=== PATIENT | female | born 1945 | race Caucasian/White ===

== ENCOUNTER → 2017-10-06 08:35 | Outpatient (CLI) | payer MEDICARE, SELFPAY ==
--- NOTE | 2017-10-06 08:36 | ECHOD_ITS ---
Reason For Study: chest pain Procedure This was a 2D Doppler, Color Flow transthoracic echocardiogram. Exam performed in department. Left Ventricle Normal LV size. The estimated ejection fraction is 60 %. Left ventricular systolic function is normal. No regional wall motion abnormalities noted. Right Ventricle Normal RV size. Normal systolic function. Atria Normal left atrium. Normal right atrium. Mitral Valve Bileaflet diffuse mitral valve thickening. Mild (1+) eccentric mitral valve insufficiency. Tricuspid Valve Normal tricuspid valve. Mild (1+) tricuspid valve insufficiency. Aortic Valve Normal aortic valve. Mild (1+) aortic valve insufficiency. Pulmonic Valve Normal pulmonic valve. Great Vessels Normal aortic root. The pulmonary artery is normal size. Normal inferior vena cava. Pericardium/Pleural No pericardial effusion. MMode/2D Measurements & Calculations LVIDd: 4.1 cm IVSd: 1.0 cm LVOT diam: 2.0 cm LVIDs: 3.0 cm LVPWd: 1.0 cm LVOT area: 3.2 cm2 RVDd: 2.6 cm FS: 26.7 % Ao root diam: 3.0 cm LAV(MOD-bp): 41.9 ml LA A4 area: 14.5 cm2 LA dimension: 3.5 cm LAV(MOD-bp) Indexed: 25.2 ml/m2 LAV(MOD-sp2): 31.2 ml LAV(MOD-sp4): 42.9 ml RA A4 area: 10.7 cm2 Time Measurements MV dec time: 0.18 sec Doppler Measurements & Calculations MV E max vince: 76.3 cm/sec Lat Peak E' Vince: 5.0 cm/sec Med Peak E' Vince: 8.0 cm/sec MV A max vince: 105.4 cm/sec E/E' lat: 15.2 E/E' med: 9.5 MV E/A: 0.72 Ao V2 max: 130.6 cm/sec AI max vince: 422.5 cm/sec LV V1 max: 90.7 cm/sec Ao max P.8 mmHg AI max P.5 mmHg LV V1 max P.3 mmHg SOLOMON(V,D): 2.2 cm2 AI dec slope: 424.8 cm/sec2 AI P1/2t: 291.3 msec PA V2 max: 84.4 cm/sec TR max vince: 240.0 cm/sec TR max P.0 mmHg Interpretation Summary Normal LV size. The estimated ejection fraction is 60 %. Left ventricular systolic function is normal. Mild (1+) eccentric mitral valve insufficiency. Mild (1+) tricuspid valve insufficiency. Ordering Physician: Dariel Carter Referring Physician: Sammy Aleman Performed By: Sahra Neal, MARKY, RVT
== END ==
PROVIDERS: Family Provider Internal Medicine; PCP Internal Medicine; Visit Provider Internal Medicine Cardiovascular Disease
DX: R07.89 Other chest pain (principal)
CPT/HCPCS: 93306

== ENCOUNTER 2018-11-05 18:03 | Observation (INO) | payer MEDICARE, SELFPAY ==
[2018-11-05] VITALS (7 sets, daily range): BP systolic 126–152; BP diastolic 65–88; PULSE 100–109; RESP 14–25; TEMP 36.7; O2SAT 93–100; BMI 24.5
--- NOTE | 2018-11-05 18:54 | EKG12_ITS ---
Test Reason : REPEAT #2 Blood Pressure : / mmHG Vent. Rate : 125 BPM Atrial Rate : 125 BPM P-R Int : 118 ms QRS Dur : 084 ms QT Int : 338 ms P-R-T Axes : 033 -23 035 degrees QTc Int : 487 ms Sinus tachycardia Nonspecific ST abnormality Abnormal ECG Confirmed by ROBERT GANN, LEONIDES ([id number]), graphic editor SANTANA WISE ([id number]) on 11/07/2018 11:18:11 AM Referred By: RD Confirmed By:LEONIDES JONES MD
--- NOTE | 2018-11-05 18:55 | ED.VIS.GEN ---
History of Present Illness Chief Complaint: Chest Pain Informant: Patient, Significant Other Onset: Yesterday Context: Sudden Onset Timing: Intermittent - Initially intermittent now continuous since 1300 Quality: Initially epigastric and upper quadrant pain associated with N/V Location: Bilateral anterior chest pressure since 1300 Current Severity: Moderate Maximum Severity: Moderate Worsened by: Possibly food Relieved by: Nothing Associated Symptoms: Nausea, vomiting, chest pressure Narrative: Patient is an elderly woman who presents with nausea and vomiting 2 hours after eating pizza. No one else was ill. The pain was right upper quadrant epigastric without radiation. She does report intolerance to greasy and fried foods. She also had chest discomfort that was intermittent. She does not recall how long it lasted for. Since 1300 she has had bilateral anterior lower chest pressure without radiation or associated symptoms. She does have history of reflux. She states this is different than her reflux discomfort. She denies hematemesis, melena hematochezia. She denies history of PE or DVT. She denies leg pain, swelling discoloration. She has no risk factors for PE or DVT. She is a former smoker. Father had bypass surgery at the age of 75. Prior similar symptoms: No Recent Illness/Hospitalization: No - Past Medical History (1) Dyspnea on exertion Status: Acute (2) Hyperlipidemia Status: Chronic (3) Hypertension Status: Chronic Past Medical History - Allergies and Home Meds Allergies/Adverse Reactions: Allergies No Known Allergies Allergy (Verified 11/05/18 18:11) Primary Care Physician: Sammy Aleman MD [Primary Care Provider] - Prior records reviewed: Yes Surgical History: noncontributory Lives: Spouse/ Significant Other Smoking Status: Former smoker Drugs: None Review of Systems General: Denies: Chills, Fever, Malaise, Subjective, Sweats, Weight loss Eyes: Denies: Visual changes - bilaterally, Blurred Vision - bilaterally ENT: Denies: Bilateral ear pain, Rhinorrhea, Sore throat Cardiovascular: Reports: Chest pain, Palpitations, Heart racing Respiratory: Reports: Dyspnea - Onset of symptoms Gastrointestinal: Reports: Abdominal pain, Nausea, Vomiting. Denies: Diarrhea, Constipation, Melena, Hematochezia, -, - Genitourinary: Denies: Dysuria, Hematuria, Frequency Musculoskeletal: Denies: Myalgias, Arthralgias, Neck pain, Back pain, Extremity Pain Skin: Denies: Rash Neurological: Denies: Headache, Weakness, Parasthesia Hematologic: Denies: Easy bruising Allergy: Denies: Uticaria, Swelling of the mouth Physical Exam Vital Signs/Narrative: Vital Signs Temp Pulse Resp BP Pulse Ox 11/05/18 18:08 98.1 F 109 H 14 152/88 H 95 Inital Vital Signs reviewed: Yes General: Well nourished, Well developed, No Acute Distress Head: Normocephalic, Atraumatic Eyes: Perrl, EOMI. Negative for: Pale conjunctiva, Scleral icterus ENT: Moist mucous membranes, No rhinorrhea, TM's clear Neck: Supple, Nontender, No lymphadenopathy, No JVD, - Cardiovascular: Regular rate, Regular rhythm, No murmurs, Normal S1, Normal S2 Respiratory: No distress, CTA bilaterally, Chest nontender Abdomen: Soft, Nondistended, No masses, Tender, Hypoactive bowel sounds, Muhammad's sign. Negative for: Guarding, Rebound tenderness, Hepatomegaly, Splenomegaly, Mass, Pulsatile mass, Ventral hernia, Inguinal hernia Rectal: Deferred Back: Nontender, Normal Inspection. Negative for: CVA tenderness Extremities: Nontender, No edema, - - There is no asymmetry, swelling, discoloration, leg vein distention, palpable cords or tenderness along the distribution of the deep venous system. Skin: Normal color, No rash. Negative for: Diaphoresis, Jaundice Neurological: Alert, Oriented x3, Cranial nerves II-XII grossly intact, Normal Strength, Normal Sensation Psychological: Normal affect, Normal Mood Diagnostic/Tx/Re-eval Chest X-Ray - ED: 2 View, Read by ED Physician, Normal, Heart, Lungs, Mediastinum, Bony Structures, No Acute Disease Impressions Chest X-Ray 11/05/18 19:14 IMPRESSION: No acute pulmonary findings. Electronically Signed: Brain Quiles MD at 19:26 EDT Tel , Service support , 11/05/18 19:14 Chest PA and Lateral [RAD] Stat Laboratory Results 11/05/18 11/05/18 18:21 18:21 WBC 11.4 H RBC 4.92 Hgb 14.5 Hct 42.5 MCV 86.4 MCH 29.5 MCHC 34.1 RDW 12.6 RDW Differential 38.8 Plt Count 277 MPV 10.8 Immature Gran % (Auto) 0.500 Neut % (Auto) 66.6 Lymph % (Auto) 19.5 Lyman % (Auto) 13.0 H Eos % (Auto) 0.4 Baso % (Auto) 0.0 Absolute Neuts (auto) 7.6 Absolute Lymphs (auto) 2.22 Total Counted Not Reportable Sodium 133 L Potassium 3.3 L Chloride 100 Carbon Dioxide 24.0 Anion Gap 9 BUN 17 Creatinine 0.68 Estim Creat Clear Calc 38.44 Est GFR (MDRD) Af Amer 108 Est GFR (MDRD) Non-Af 90 BUN/Creatinine Ratio 25.0 H Glucose 101 Calcium 8.7 Total Bilirubin 0.90 Direct Bilirubin 0.19 AST 19 ALT 23 Alkaline Phosphatase 116 Troponin I < 0.015 Total Protein 7.1 Albumin 3.9 Globulin 3.2 Lipase 73 - Rhythm Strip Rhythm Strip: Sinus Rhythm Rate: 102 Ectopy: None - EKG Initial EKG Interpretation: Sinus Tachycardia - Ventricular rate is 105. There is no ossific lateral changes noted. Will need to compare to old. Will repeat EKG since there is artifact. IL interval is normal. Respirations normal. QT interval is normal. [place] is normal. Follow-up EKG Interpretation: Sinus Rhythm - Ventricular rate 99. No ossific lateral changes. Unchanged from first EKG. IL interval, cures duration QT interval and axis are normal. Prior: Unchanged - Medical Decision Making Differential diagnosis includes biliary colic, cholelithiasis, cholecystitis, noncardiac chest pain, cardiac ischemia, atypical presentation for pulmonary embolus. Repeat x-ray reveals no ossific lateral changes. Initial troponin was 6 hours of pressure is normal. Since she is still experiencing chest pressure with normal liver enzymes and lipase will treat with nitroglycerin and reassess. Repeat EKG reveals no ossific changes. 3-hour troponin is normal with delta of 0. Patient became tachycardic after first nitro and no further nitro was given. Third EKG revealed sinus tachycardia rate of [address]-T wave changes. Heart score is 4. Not place her at moderate risk. Will call hospitalist for serial enzymes and provocative testing in the morning. Patient was interviewed at 2340. The burning sensation of throat resolved with a GI cocktail. The pressure in her chest has not resolved. Patient states she is never had chest pressure. She has seen Dr. Carter for evaluation of chest pain in the past. ED Disposition - Plan for ED Patient: Disposition: Acute Care Hospital [facility] Diagnosis: Chest pressure, History of hypertension, Hypercholesterolemia, History of gastroesophageal reflux (GERD), Sinus tachycardia by electrocardiogram Referrals: Sammy Aleman MD [Primary Care Provider] -
--- NOTE | 2018-11-05 19:00 | ED.DCSUM_ITS ---
History of Present Illness Chief Complaint: Chest Pain Informant: Patient, Significant Other Onset: Yesterday Context: Sudden Onset Timing: Intermittent - Initially intermittent now continuous since 1300 Quality: Initially epigastric and upper quadrant pain associated with N/V Location: Bilateral anterior chest pressure since 1300 Current Severity: Moderate Maximum Severity: Moderate Worsened by: Possibly food Relieved by: Nothing Associated Symptoms: Nausea, vomiting, chest pressure Narrative: Patient is an elderly woman who presents with nausea and vomiting 2 hours after eating pizza. No one else was ill. The pain was right upper quadrant epigastric without radiation. She does report intolerance to greasy and fried foods. She also had chest discomfort that was intermittent. She does not recall how long it lasted for. Since 1300 she has had bilateral anterior lower chest pressure without radiation or associated symptoms. She does have history of reflux. She states this is different than her reflux discomfort. She denies hematemesis, melena hematochezia. She denies history of PE or DVT. She denies leg pain, swelling discoloration. She has no risk factors for PE or DVT. She is a former smoker. Father had bypass surgery at the age of 75. Prior similar symptoms: No Recent Illness/Hospitalization: No - Past Medical History (1) Dyspnea on exertion Status: Acute (2) Hyperlipidemia Status: Chronic (3) Hypertension Status: Chronic Past Medical History - Allergies and Home Meds Allergies/Adverse Reactions: Allergies No Known Allergies Allergy (Verified 11/05/18 18:11) Primary Care Physician: Sammy Aleman MD [Primary Care Provider] - Prior records reviewed: Yes Surgical History: noncontributory Lives: Spouse/ Significant Other Smoking Status: Former smoker Drugs: None Review of Systems General: Denies: Chills, Fever, Malaise, Subjective, Sweats, Weight loss Eyes: Denies: Visual changes - bilaterally, Blurred Vision - bilaterally ENT: Denies: Bilateral ear pain, Rhinorrhea, Sore throat Cardiovascular: Reports: Chest pain, Palpitations, Heart racing Respiratory: Reports: Dyspnea - Onset of symptoms Gastrointestinal: Reports: Abdominal pain, Nausea, Vomiting. Denies: Diarrhea, Constipation, Melena, Hematochezia, -, - Genitourinary: Denies: Dysuria, Hematuria, Frequency Musculoskeletal: Denies: Myalgias, Arthralgias, Neck pain, Back pain, Extremity Pain Skin: Denies: Rash Neurological: Denies: Headache, Weakness, Parasthesia Hematologic: Denies: Easy bruising Allergy: Denies: Uticaria, Swelling of the mouth Physical Exam Vital Signs/Narrative: Vital Signs Temp Pulse Resp BP Pulse Ox 11/05/18 18:08 98.1 F 109 H 14 152/88 H 95 Inital Vital Signs reviewed: Yes General: Well nourished, Well developed, No Acute Distress Head: Normocephalic, Atraumatic Eyes: Perrl, EOMI. Negative for: Pale conjunctiva, Scleral icterus ENT: Moist mucous membranes, No rhinorrhea, TM's clear Neck: Supple, Nontender, No lymphadenopathy, No JVD, - Cardiovascular: Regular rate, Regular rhythm, No murmurs, Normal S1, Normal S2 Respiratory: No distress, CTA bilaterally, Chest nontender Abdomen: Soft, Nondistended, No masses, Tender, Hypoactive bowel sounds, Muhammad's sign. Negative for: Guarding, Rebound tenderness, Hepatomegaly, Splenomegaly, Mass, Pulsatile mass, Ventral hernia, Inguinal hernia Rectal: Deferred Back: Nontender, Normal Inspection. Negative for: CVA tenderness Extremities: Nontender, No edema, - - There is no asymmetry, swelling, discoloration, leg vein distention, palpable cords or tenderness along the distribution of the deep venous system. Skin: Normal color, No rash. Negative for: Diaphoresis, Jaundice Neurological: Alert, Oriented x3, Cranial nerves II-XII grossly intact, Normal Strength, Normal Sensation Psychological: Normal affect, Normal Mood Diagnostic/Tx/Re-eval Chest X-Ray - ED: 2 View, Read by ED Physician, Normal, Heart, Lungs, Mediastinum, Bony Structures, No Acute Disease Impressions Chest X-Ray 11/05/18 19:14 IMPRESSION: No acute pulmonary findings. Electronically Signed: Brain Quiles MD at 19:26 EDT Tel , Service support , 11/05/18 19:14 Chest PA and Lateral [RAD] Stat Laboratory Results 11/05/18 11/05/18 18:21 18:21 WBC 11.4 H RBC 4.92 Hgb 14.5 Hct 42.5 MCV 86.4 MCH 29.5 MCHC 34.1 RDW 12.6 RDW Differential 38.8 Plt Count 277 MPV 10.8 Immature Gran % (Auto) 0.500 Neut % (Auto) 66.6 Lymph % (Auto) 19.5 Burt % (Auto) 13.0 H Eos % (Auto) 0.4 Baso % (Auto) 0.0 Absolute Neuts (auto) 7.6 Absolute Lymphs (auto) 2.22 Total Counted Not Reportable Sodium 133 L Potassium 3.3 L Chloride 100 Carbon Dioxide 24.0 Anion Gap 9 BUN 17 Creatinine 0.68 Estim Creat Clear Calc 38.44 Est GFR (MDRD) Af Amer 108 Est GFR (MDRD) Non-Af 90 BUN/Creatinine Ratio 25.0 H Glucose 101 Calcium 8.7 Total Bilirubin 0.90 Direct Bilirubin 0.19 AST 19 ALT 23 Alkaline Phosphatase 116 Troponin I < 0.015 Total Protein 7.1 Albumin 3.9 Globulin 3.2 Lipase 73 - Rhythm Strip Rhythm Strip: Sinus Rhythm Rate: 102 Ectopy: None - EKG Initial EKG Interpretation: Sinus Tachycardia - Ventricular rate is 105. There is no ossific lateral changes noted. Will need to compare to old. Will repeat EKG since there is artifact. [place] interval is normal. Respirations normal. QT interval is normal. [place] is normal. Follow-up EKG Interpretation: Sinus Rhythm - Ventricular rate 99. No ossific lateral changes. Unchanged from first EKG. [place] interval, cures duration QT interval and axis are normal. Prior: Unchanged - Medical Decision Making Differential diagnosis includes biliary colic, cholelithiasis, cholecystitis, noncardiac chest pain, cardiac ischemia, atypical presentation for pulmonary embolus. Repeat x-ray reveals no ossific lateral changes. Initial troponin was 6 hours of pressure is normal. Since she is still experiencing chest pressure with normal liver enzymes and lipase will treat with nitroglycerin and reassess. Repeat EKG reveals no ossific changes. 3-hour troponin is normal with delta of 0. Patient became tachycardic after first nitro and no further nitro was given. Third EKG revealed sinus tachycardia rate of [address]-T wave changes. Heart score is 4. Not place her at moderate risk. Will call hospitalist for serial enzymes and provocative testing in the morning. Patient was interviewed at 2340. The burning sensation of throat resolved with a GI cocktail. The pressure in her chest has not resolved. Patient states she is never had chest pressure. She has seen Dr. Carter for evaluation of chest pain in the past. ED Disposition - Plan for ED Patient: Disposition: Acute Care Hospital [facility] Diagnosis: Chest pressure, History of hypertension, Hypercholesterolemia, History of gastroesophageal reflux (GERD), Sinus tachycardia by electrocardiogram Referrals: Sammy Aleman MD [Primary Care Provider] -
[2018-11-05] MEDS: Ondansetron 4 MG/2 ML Vial IV ×2 (19:06→20:01)
[2018-11-05] MEDS: Morphine 2 MG/ML Syringe IV (19:08)
--- NOTE | 2018-11-05 19:09 | ED.RN ---
PT C/O HEAVINESS AND TINGLING IN LEGS
--- NOTE | 2018-11-05 19:12 | ED.RN ---
DR PALMER NOTIFIED OF ISSUES WITH LEGS
--- NOTE | 2018-11-05 19:14 | RAD_ITS ---
STUDY: X-RAY CHEST REASON FOR EXAM: Female, 73 years old. Chest pain TECHNIQUE: Frontal and lateral views of the chest. COMPARISON: None. FINDINGS: The lungs are clear and expanded. There is no demonstrated pleural abnormality. Normal size heart. Normal mediastinum and azeb. Normal visualized pulmonary arteries. There is atherosclerotic tortuosity of the aortic arch and descending thoracic aorta. Normal visualized thoracic spine. Normal visualized ribs, clavicles, and shoulders. There is no demonstrated abnormality of the visualized soft tissue structures of the upper abdomen. RAD/Chest PA and Lateral IMPRESSION: No acute pulmonary findings. Electronically Signed: Brain Quiles MD at 19:26 EDT Tel , Service support ,
[2018-11-05 19:26] LABS: Absolute Lymphocyte Count 2.22 X10^3/ul (0.83-4.51); Absolute Neutrophil Count 7.6 X10^3/uL (2.0-7.7); Eosinophil# 0.04 X10^3/uL; Eosinophils% 0.4 % (0-5); Hematocrit 42.5 % (37-47); Hemoglobin 14.5 g/dl (12.0-15.0); Lymphocyte # 2.22 X10^3/ul (4.0); Lymphocyte % 19.5 % (19-41); Mean Corp Hgb Conc 34.1 g/gl (32-36); Mean Corpuscular Hgb 29.5 pg (27.0-32.0); Mean Corpuscular Volume 86.4 fL (81-99); Mean Platelet Vol. 10.8 fl (6.2-12.0); Monocyte# 1.48 X10^3/uL; Neutrophil % 66.6 % (47-70); Platelet Count 277 K/mm3 (150-450); RBC Distribution Width CV 12.6 % (11.6-14.6); RBC Distribution Width SD 38.8 fl (35.1-43.9); Red Blood Count 4.92 M/mm3 (4.2-5.4); White Blood Count 11.4 K/mm3 (4.4-11.0)
[2018-11-05 19:27] LABS: POSITIVE COUNT NO; POSITIVE DIFFERENTIAL NO; POSITIVE MORPHOLOGY NO
[2018-11-05 19:32] LABS: AST(SGOT) 19 U/L (15-37); Alanine Aminotransfer ALT/SGPT 23 U/L (13-56); Albumin, Serum 3.9 g/dL (3.2-5.0); Alkaline Phosphatase 116 U/L (45-117); Anion Gap 9 (5-15); BUN 17 mg/dL (7-18); Bilirubin, Direct 0.19 mg/dL (0.00-0.30); Calcium,Total 8.7 mg/dL (8.5-10.1); Chloride 100 mmol/L (98-107); Creatinine, Serum 0.68 mg/dL (0.55-1.02); EST Glomerular Filtration Rate 90 mL/min (>60); Est Glom Filt Rate - Afr Amer 108 mL/min (>60); Estimated Creatinine Clearance 38.44 ml/min; Globulin 3.2 g/dL (2.2-4.2); Glucose 101 mg/dL (74-106); Lipase 73 U/L (73-393); Potassium 3.3 mmol/L (3.5-5.1); Protein, Total 7.1 g/dL (6.4-8.2); Sodium Level 133 mmol/L (136-145)
--- NOTE | 2018-11-05 20:29 | EKG12_ITS ---
Test Reason : CP Blood Pressure : / mmHG Vent. Rate : 105 BPM Atrial Rate : 105 BPM P-R Int : 118 ms QRS Dur : 086 ms QT Int : 364 ms P-R-T Axes : 041 -11 038 degrees QTc Int : 481 ms Sinus tachycardia Nonspecific ST abnormality Abnormal ECG Confirmed by ROBERT GANN, LEONIDES ([id number]), digital editor SANTANA WISE ([id number]) on 11/07/2018 11:18:22 AM Referred By: AMARILIS Confirmed By:LEONIDSE JONES MD
--- NOTE | 2018-11-05 21:03 | ED.RN ---
DESPITE PAIN MEDICATION, PT WITH CONTINUED PAIN IN RUQ AND INTO CHEST. DR. PALMER ORDERED NITRO. GIVEN PER ORDERS. WILL CONTINUE TO MONITOR.
--- NOTE | 2018-11-05 21:16 | ED.RN ---
AFTER PT WAS GIVEN NITRO, HR INCREASED 140. DR. PALMER INFORMED. PT REPORTS NO CHANGE IN PAIN. CALLED FOR REPEAT EKG. WILL CONTINUE TO MONITOR.
--- NOTE | 2018-11-05 22:31 | ED.RN ---
PT COMPLAINS OF CONTINUED REFLUX PAIN AND NAUSEA. DR. PALMER INFORMED. NEW ORDERS PLACED. WILL CONTINUE TO MONITOR.
[2018-11-05] MEDS: Mag Hydrox/Al Hydrox/Simeth 30 ML UDC PO (22:40)
[2018-11-05] MEDS: Aspirin 81 MG TAB.CHEW 324 MG PO (23:53)
[2018-11-06] VITALS (11 sets, daily range): BP systolic 118–140; BP diastolic 38–83; PULSE 78–103; RESP 16–17; TEMP 36.3–36.7; O2SAT 92–95; BMI 23.3; BMI 23.4
--- NOTE | 2018-11-06 00:09 | PCM.HP.STD ---
Problem List (1) Chest pressure Status: Acute (2) History of gastroesophageal reflux (GERD) Status: Acute (3) Chest pain Status: Acute Qualifiers: Chest pain type: other chest pain Qualified Code(s): R07.89 - Other chest pain; R07.8 - Other chest pain (4) Hypertension Status: Chronic Qualifiers: Hypertension type: essential hypertension Qualified Code(s): I10 - Essential (primary) hypertension (5) Hyperlipidemia Status: Chronic Qualifiers: Hyperlipidemia type: pure hypercholesterolemia Qualified Code(s): E78.00 - Pure hypercholesterolemia, unspecified; E78.0 - Pure hypercholesterolemia History of Present Illness Date of Admission: 11/06/18 Chief Complaint: Chest pressure The patient is a 73 year old F with PMH as below who presents to the hospital with intermittent episodes of chest pressure that are unrelated to exercise, over the last 2 days. She has noticed that it is been going on and off for the most part all day today. She has a history of GERD that is fairly severe and has had significant chest pain in the past that is been related to this, but this is a little bit of a different pressure. However in the ER her chest pain was not relieved with nitro but it did improve with a GI cocktail. She has a remote history of smoking, however she does have hyperlipidemia and hypertension and therefore her heart score in the ER was considered before. She also had an EKG that had some lateral ST depressions that are different than her EKG in 2017, though nonspecific especially given that she has had 2 troponins drawn in the ER both of which were normal. Past Medical History Past Medical History (Chronic Problems): Chronic Problems (Last Reviewed 01/24/18 @ 14:16 by Sharon Diaz) Hypertension (Chronic) Hyperlipidemia (Chronic) Medical History: Medical History (Last Reviewed 01/24/18 @ 14:16 by Sharon Diaz) Hypertension (Chronic) I10 Hyperlipidemia (Chronic) E78.5 Arthritis M19.90 Barretts esophagus K22.70 Chronic back pain M54.9, G89.[address] Marquis, receives GUS. Frequent headaches R51 GERD (gastroesophageal reflux disease) K21.9 IBS (irritable bowel syndrome) K58.9 Insomnia G47.00 Lichen planus L43.9 Obsessive compulsive disorder F42.9 Osteopenia M85.80 Raynaud phenomenon I73.00 Vitamin D deficiency E55.9 Allergies No Known Allergies Allergy (Verified 11/05/18 18:11) Home Medications: Ambulatory Orders Medication Instructions Recorded Bacillus coagulans 10 billion cell cell PO QDAY ea 09/13/17 capsule,delayed release amlodipine 2.5 mg tablet 5 mg PO QDAY 90 Days #90 tab 09/13/17 calcium carbonate 600 mg(1,500 1 tab PO BID 09/13/17 mg)-vitamin D3 800 unit chewable tablet fluoxetine 40 mg capsule 40 mg PO QDAY 30 Days #30 cap 09/13/17 glucosamine 500 cap PO QDAY ea 09/13/17 ke-hgeldcshc-gpgzxscl comp 400 mg-D3 667 unit-C-Mn cap multivitamin tablet 1 tab PO QAM 09/13/17 omeprazole 40 mg capsule,delayed 40 mg PO QDAY 90 Days #90 cap 09/13/17 release simvastatin 40 mg tablet 40 mg PO QPM 09/13/17 Surgical History: Surgical History (Last Reviewed 01/24/18 @ 14:16 by Sharon Diaz) History of arthroscopy of left knee Onset Date: ~04/2017 Z98.890 History of bladder surgery Z98.890 History of cataract surgery Z98.49 History of tonsillectomy Z98.890, Z90.89 History of total abdominal hysterectomy Z98.890, Z90.710 Status post epidural steroid injection Z92.241 lumbar/sacral area Surgical History: noncontributory Lives: Spouse/ Significant Other Smoking Status: Former smoker Tobacco Use: Cigarettes Alcohol: None Drugs: None - *Family History Maternal Family History: Family History (Last Reviewed 01/24/18 @ 14:16 by Sharon Diaz) Father Heart disease CAD (coronary artery disease) Review of Systems Constitutional: Denies: Chills, Fever, Weight Change HEENT: Denies: Head Aches, Sinus Congestion, Sinus Drainage Cardiovascular: Reports: Chest Pressure. Denies: Chest Pain, Palpitations Respiratory: Denies: Cough, Shortness of breath at rest, Sputum production Gastrointestinal: Reports: Nausea, Vomiting. Denies: Abdominal Pain Genitourinary: Denies: Dysuria Musculoskeletal: Denies: Joint Pain, Joint Tenderness Skin: Denies: Rash, Wounds Neurological: Denies: Numbness, Tingling, Focal weakness Psychiatric: Denies: Anxiety, Depression Hematologic/ Lymphatic: Denies: Easy Bruising, Easy Bleeding VTE Information - Inpt Only VTE Present on Admission: No Patient Problems: Active and Suspected Problems (Last Reviewed 01/24/18 @ 14:16 by Sharon Diaz) Chest pressure (Acute) History of hypertension (Acute) Hypercholesterolemia (Acute) History of gastroesophageal reflux (GERD) (Acute) Sinus tachycardia by electrocardiogram (Acute) - Physical Exam General: Alert, Oriented x3, Cooperative, No apparent distress HEENT: Atraumatic, PERRLA, EOMI, Normocephalic Oral: Moist Mucosa Neck: Supple, No JVD Lungs: Clear to auscultation, Normal air movement, No rhonchi, No wheeze, No rales Cardiovascular: Regular Rhythm, Normal S1, Normal S2, No murmurs, Tachycardic Abdomen: Soft, Non Tender, Non-Distended, No Hepato-splenomegaly Extremities: No edema, Capillary Refill Less than 3 Seconds Skin: No rashes, No breakdown Neurological: Neuro grossly intact, Sensory exam intact to light touch and pain Psych/Mental Status: Normal Affect, Appropriate Vital Signs Temp Pulse Resp BP Pulse Ox 98.1 F 100 18 142/65 H 97 11/05/18 18:08 11/05/18 23:49 11/05/18 23:49 11/05/18 23:49 11/05/18 23:49 Oxygen Flow Rate (L/min) 2 Oxygen Delivery Method Nasal Cannula Weight: 134 lb Body Mass Index (BMI) 24.5 Laboratory Tests Past 24 Hrs 11/05/18 11/05/18 11/05/18 18:21 18:21 22:30 WBC 11.4 H RBC 4.92 Hgb 14.5 Hct 42.5 MCV 86.4 MCH 29.5 MCHC 34.1 RDW 12.6 RDW Differential 38.8 Plt Count 277 MPV 10.8 Immature Gran % (Auto) 0.500 Neut % (Auto) 66.6 Lymph % (Auto) 19.5 [place] % (Auto) 13.0 H Eos % (Auto) 0.4 Baso % (Auto) 0.0 Absolute Neuts (auto) 7.6 Absolute Lymphs (auto) 2.22 Total Counted Not Reportable Sodium 133 L Potassium 3.3 L Chloride 100 Carbon Dioxide 24.0 Anion Gap 9 BUN 17 Creatinine 0.68 Estim Creat Clear Calc 38.44 Est GFR (MDRD) Af Amer 108 Est GFR (MDRD) Non-Af 90 BUN/Creatinine Ratio 25.0 H Glucose 101 Calcium 8.7 Total Bilirubin 0.90 Direct Bilirubin 0.19 AST 19 ALT 23 Alkaline Phosphatase 116 Troponin I < 0.015 < 0.015 Total Protein 7.1 Albumin 3.9 Globulin 3.2 Lipase 73 Assessment/Plan All Active Problems (Last Reviewed 01/24/18 @ 14:16 by Sharon Diaz) Chest pressure (Acute) History of hypertension (Acute) Hypercholesterolemia (Acute) History of gastroesophageal reflux (GERD) (Acute) Sinus tachycardia by electrocardiogram (Acute) Dyspnea on exertion (Acute) Chest pain (Acute) 1. Chest pressure/HTN/HLD -2 troponins in the ER were negative, will repeat a third at 0230 this morning. -Plan for an exercise stress test in the morning -EKG is nonspecific with single box ST depressions in the lateral leads -Continue with her Norvasc, simvastatin -We will obtain a lipid level in the morning 2. Nausea/vomiting/GERD -GI cocktail helped in the ER -Can repeat if we need to on the inpatient side -She states this started after she ate pizza -Continue with her home PPI 3. Depression -Stable -Continue with fluoxetine DVT: Lovenox Code Visit OBSV E&M: 29382 Initial observation care L2
[2018-11-06 02:55] LABS: Absolute Lymphocyte Count 2.35 X10^3/ul (0.83-4.51); Absolute Neutrophil Count 8.5 X10^3/uL (2.0-7.7); Basophil# 0.01 X10^3/uL; Basophil% 0.1 % (0-1); Eosinophil# 0.07 X10^3/uL; Eosinophils% 0.6 % (0-5); Hematocrit 41.1 % (37-47); Lymphocyte # 2.35 X10^3/ul (4.0); Lymphocyte % 19.2 % (19-41); Mean Corp Hgb Conc 34.1 g/gl (32-36); Mean Corpuscular Hgb 29.8 pg (27.0-32.0); Mean Corpuscular Volume 87.4 fL (81-99); Monocyte# 1.32 X10^3/uL; Monocyte% 10.8 % (0-10); Neutrophil # 8.46 X10^3/uL (2.7-7.7); Platelet Count 251 K/mm3 (150-450); RBC Distribution Width CV 12.5 % (11.6-14.6); RBC Distribution Width SD 40.2 fl (35.1-43.9); White Blood Count 12.3 K/mm3 (4.4-11.0)
[2018-11-06 03:01] LABS: POSITIVE COUNT NO; POSITIVE DIFFERENTIAL NO; POSITIVE MORPHOLOGY NO
[2018-11-06 03:12] LABS: Anion Gap 7 (5-15); BUN 22 mg/dL (7-18); BUN/Creat Ratio 33.7 RATIO (10-20); Calcium,Total 8.4 mg/dL (8.5-10.1); Chloride 101 mmol/L (98-107); Cholesterol 176 mg/dL (200); Creatinine, Serum 0.65 mg/dL (0.55-1.02); EST Glomerular Filtration Rate 94 mL/min (>60); Est Glom Filt Rate - Afr Amer 114 mL/min (>60); Estimated Creatinine Clearance 38.44 ml/min; Glucose 94 mg/dL (74-106); High Density Lipoprotein 72 mg/dL; Potassium 3.8 mmol/L (3.5-5.1); Sodium Level 133 mmol/L (136-145); Triglycerides 154 mg/dL; Very Low Density Lipoprotein 31 mg/dL (5-40)
--- NOTE | 2018-11-06 05:00 | EKG12_ITS ---
Test Reason : REPEAT Blood Pressure : / mmHG Vent. Rate : 099 BPM Atrial Rate : 099 BPM P-R Int : 122 ms QRS Dur : 086 ms QT Int : 374 ms P-R-T Axes : 029 -15 027 degrees QTc Int : 479 ms Normal sinus rhythm Nonspecific ST abnormality Abnormal ECG Confirmed by ROBERT GANN, LEONIDES ([id number]), slot editor SANTANA WISE ([id number]) on 11/07/2018 11:18:40 AM Referred By: Confirmed By:LEONIDES JONES MD
--- NOTE | 2018-11-06 05:35 | EKG12_ITS ---
Test Reason : AM EKG Blood Pressure : / mmHG Vent. Rate : 095 BPM Atrial Rate : 095 BPM P-R Int : 122 ms QRS Dur : 082 ms QT Int : 376 ms P-R-T Axes : 046 -15 021 degrees QTc Int : 472 ms Normal sinus rhythm Normal ECG Confirmed by ROBERT GANN, LEONIDES ([id number]), editor index ROMERO PANDYA ([id number]) on 11/08/2018 9:54:08 AM Referred By: KERON Confirmed By:LEONIDES JONES MD
[2018-11-06] MEDS: Mag Hydrox/Al Hydrox/Simeth 30 ML UDC PO (05:39)
[2018-11-06 05:41] LABS: Absolute Lymphocyte Count 1.79 X10^3/ul (0.83-4.51); Absolute Neutrophil Count 6.3 X10^3/uL (2.0-7.7); Basophil# 0.01 X10^3/uL; Basophil% 0.1 % (0-1); Eosinophil# 0.07 X10^3/uL; Eosinophils% 0.7 % (0-5); Hematocrit 41.1 % (37-47); Hemoglobin 13.9 g/dl (12.0-15.0); Lymphocyte # 1.79 X10^3/ul (4.0); Mean Corp Hgb Conc 33.8 g/gl (32-36); Mean Corpuscular Hgb 29.3 pg (27.0-32.0); Mean Corpuscular Volume 86.5 fL (81-99); Mean Platelet Vol. 10.8 fl (6.2-12.0); Monocyte# 1.28 X10^3/uL; Monocyte% 13.6 % (0-10); Neutrophil # 6.25 X10^3/uL (2.7-7.7); Neutrophil % 66.2 % (47-70); Platelet Count 239 K/mm3 (150-450); RBC Distribution Width CV 12.5 % (11.6-14.6); RBC Distribution Width SD 38.8 fl (35.1-43.9); Red Blood Count 4.75 M/mm3 (4.2-5.4); White Blood Count 9.4 K/mm3 (4.4-11.0)
[2018-11-06 05:46] LABS: POSITIVE COUNT NO; POSITIVE DIFFERENTIAL NO; POSITIVE MORPHOLOGY NO
[2018-11-06 05:56] LABS: International Normalized Ratio 1.1; Partial Thromboplast Time 23.5 Seconds (24.1-36.2); Prothrombin Time (Protime)PT. 13.5 SECONDS (11.7-14.9)
[2018-11-06 06:04] LABS: Anion Gap 9 (5-15); BUN 21 mg/dL (7-18); BUN/Creat Ratio 30.9 RATIO (10-20); Calcium,Total 8.7 mg/dL (8.5-10.1); Chloride 100 mmol/L (98-107); Creatinine, Serum 0.68 mg/dL (0.55-1.02); EST Glomerular Filtration Rate 90 mL/min (>60); Est Glom Filt Rate - Afr Amer 109 mL/min (>60); Estimated Creatinine Clearance 38.44 ml/min; Glucose 96 mg/dL (74-106); Potassium 3.7 mmol/L (3.5-5.1); Sodium Level 136 mmol/L (136-145)
--- NOTE | 2018-11-06 09:42 | STRESSREP ---
Stress Test Report Date: Procedure: Exercise tolerance test/imaging study Indications: Chest pain Consent: Per the patient Procedure: The patient exercised on a Juan Luis protocol for 4 minutes completing Stage I and 1 minute of Stage II achieving a peak heart rate of 193 bpm (133 % predicted maximal heart rate) with a peak blood pressure 175/80 mmHg and a peak MET capacity of 5 METs. The baseline ECG demonstrated sinus tachycardia. The peak exercise ECG demonstrated approximately 0.5 to 1.0 mm of horizontal/upsloping ST segment depression in leads II, III, aVF, and V5 through V6 with subsequent resolution towards baseline in recovery. There were no cardiac dysrhythmias pretest, during exercise, or recovery. The functional capacity was considered average. There was no complaint of chest discomfort during exercise or recovery. The examination was discontinued secondary to dyspnea and leg discomfort. Impression: 1. Technically adequate (percent predicted maximal heart rate greater than 85%) exercise tolerance test 2. Peak exercise ECG with approximately 0.5 to 1.0 mm of horizontal/upsloping ST segment depression in leads II, III, aVF, and V5 through V6 with subsequent resolution towards baseline in recovery 3. There were no cardiac dysrhythmias pretest, during exercise, or recovery 4. Nuclear images pending Myocardial perfusion imaging study: Technique: The patient was injected with 11.1 mCi of technetium 99m Cardiolite and subsequently rest SPECT Cardiolite nuclear imaging was obtained in the horizontal long, vertical long, and short axis views. The patient exercised on a Juan Luis protocol for 4 minutes completing Stage I and 1 minute of Stage II achieving a peak heart rate of 193 bpm (133 % predicted maximal heart rate) with a peak blood pressure 175/80 mmHg and a peak MET capacity of 5 METs. The patient was injected with 32.6 mCi of technetium 99m Cardiolite and subsequently stress SPECT Cardiolite nuclear imaging was obtained in the horizontal long, vertical long, and short axis views. A gated Cardiolite study at peak stress was obtained. Interpretation: Rest and stress SPECT Cardiolite nuclear imaging status post realignment, normalization, and attenuation correction, demonstrates the appearance of relative uniform tracer uptake and myocardial perfusion appearing within normal limits. There is end systolic thickening and brightening. The gated Cardiolite study demonstrates myocardial thickening and inward wall motion. The reported LVEF is 72 %. Impression: 1. Rest and stress SPECT Cardiolite nuclear imaging demonstrate relative uniform tracer uptake and myocardial perfusion appearing within normal limits. 2. The gated Cardiolite study reports an LVEF of 72 %. This note was generated with [employer] software. It may contain incorrect words, spelling, and punctuation that were not noted in checking the note before signing.
[2018-11-06] MEDS: Ondansetron 4 MG/2 ML Vial IV (09:59)
[2018-11-06] MEDS: 0.9% NaCl Peripheral Flush Adult/Peds IV ×2 (10:00→12:17)
[2018-11-06] MEDS: amLODIPine 5 MG Tablet PO (10:57)
[2018-11-06] MEDS: Acetaminophen 325 MG Tablet 650 MG PO (10:57)
[2018-11-06] MEDS: Enoxaparin 40 MG/0.4 ML Syringe SC (10:57)
--- NOTE | 2018-11-06 11:30 | PCM.DC ---
- Discharge Diagnoses Current Active Problems: Current Active and Chronic Problems (Last Reviewed 01/24/18 @ 14:16 by Sharon Diaz) Chest pressure (Acute) History of hypertension (Acute) Hypercholesterolemia (Acute) History of gastroesophageal reflux (GERD) (Acute) Sinus tachycardia by electrocardiogram (Acute) Reason(s) for Visit for Discharge Instructions: Chest pain You will use the following diet at home:: Cardiac Your food should be the consistency of: Regular Your liquids should be the consistency of: Regular/Thin Discharge Activity: Return to Normal Activity Weight Bearing Status: Weight bearing as tolerated Additional Instructions: Follow-up with Dr. Guthrie within 1-2 weeks. Follow-up with your primary doctor within 2 weeks. Monitor your diet. Continue to stay active, do not go to sleep immediately after eating. Your omeprazole has been increased to twice a day. Allergies/Adverse Reactions: Allergies No Known Allergies Allergy (Verified 11/05/18 18:11) Medications to take at Discharge Bacillus coagulans 10 billion cell capsule,delayed release cell PO QDAY ea 09/13/17 amlodipine 2.5 mg tablet 5 mg PO QDAY 90 Days #90 tab 09/13/17 calcium carbonate 600 mg(1,500 mg)-vitamin D3 800 unit chewable tablet 1 tab PO BID 09/13/17 fluoxetine 40 mg capsule 40 mg PO QDAY 30 Days #30 cap 09/13/17 glucosamine 500 ah-sgndbcjdt-xzjqwdoz comp 400 mg-D3 667 unit-C-Mn cap cap PO QDAY ea 09/13/17 multivitamin tablet 1 tab PO QAM 09/13/17 simvastatin 40 mg tablet 40 mg PO QPM 09/13/17 Mag Hydrox/Al Hydrox/Simeth [Mylanta II] 30 ml PO Q4H PRN PRN #2 bottle 11/06/18 Omeprazole 40 mg PO BID #60 capsule. 11/06/18 The following prescriptions were given: Mag Hydrox/Al Hydrox/Simeth [Mylanta II] 30 ml PO Q4H PRN PRN #2 bottle PRN Reason: Heartburn Omeprazole 40 mg PO BID #60 capsule. Primary Care Physician: Sammy Aleman MD [Primary Care Provider] - Please follow up with your Primary Care Physician in: within 1-2 weeks Test Results: Test results from this visit will be discussed in further detail at your follow-up appointment, if applicable. Proposed Discharge Date: 11/06/18
--- NOTE | 2018-11-06 11:33 | DCINST_ITS ---
- Discharge Diagnoses Current Active Problems: Current Active and Chronic Problems (Last Reviewed 01/24/18 @ 14:16 by Sharon Diaz) Chest pressure (Acute) History of hypertension (Acute) Hypercholesterolemia (Acute) History of gastroesophageal reflux (GERD) (Acute) Sinus tachycardia by electrocardiogram (Acute) Reason(s) for Visit for Discharge Instructions: Chest pain You will use the following diet at home:: Cardiac Your food should be the consistency of: Regular Your liquids should be the consistency of: Regular/Thin Discharge Activity: Return to Normal Activity Weight Bearing Status: Weight bearing as tolerated Additional Instructions: Follow-up with Dr. Guthrie within 1-2 weeks. Follow-up with your primary doctor within 2 weeks. Monitor your diet. Continue to stay active, do not go to sleep immediately after eating. Your omeprazole has been increased to twice a day. Allergies/Adverse Reactions: Allergies No Known Allergies Allergy (Verified 11/05/18 18:11) Medications to take at Discharge Bacillus coagulans 10 billion cell capsule,delayed release cell PO QDAY ea 09/13/17 amlodipine 2.5 mg tablet 5 mg PO QDAY 90 Days #90 tab 09/13/17 calcium carbonate 600 mg(1,500 mg)-vitamin D3 800 unit chewable tablet 1 tab PO BID 09/13/17 fluoxetine 40 mg capsule 40 mg PO QDAY 30 Days #30 cap 09/13/17 glucosamine 500 pi-ahyvtuvai-wallugtt comp 400 mg-D3 667 unit-C-Mn cap cap PO QDAY ea 09/13/17 multivitamin tablet 1 tab PO QAM 09/13/17 simvastatin 40 mg tablet 40 mg PO QPM 09/13/17 Mag Hydrox/Al Hydrox/Simeth [Mylanta II] 30 ml PO Q4H PRN PRN #2 bottle 11/06/18 Omeprazole 40 mg PO BID #60 capsule. 11/06/18 The following prescriptions were given: Mag Hydrox/Al Hydrox/Simeth [Mylanta II] 30 ml PO Q4H PRN PRN #2 bottle PRN Reason: Heartburn Omeprazole 40 mg PO BID #60 capsule. Primary Care Physician: Sammy Aleman MD [Primary Care Provider] - Please follow up with your Primary Care Physician in: within 1-2 weeks Test Results: Test results from this visit will be discussed in further detail at your follow- up appointment, if applicable. Proposed Discharge Date: 11/06/18
--- NOTE | 2018-11-06 11:33 | PCM.DC.SUM ---
Discharge Date and Diagnosis Date of Admission: 11/06/18 Date of Discharge: 11/06/18 - Primary Discharge Diagnosis Active and Suspected Problems (Last Reviewed 01/24/18 @ 14:16 by Sharon Diaz) Chest pain, atypical likely secondary to GERD - Secondary Discharge Diagnosis Chronic Problems (Last Reviewed 01/24/18 @ 14:16 by Sharon Diaz) Hypertension (Chronic) Hyperlipidemia (Chronic) Chappell's esophagus GERD Hospital Course and Treatment Imaging Results: 11/06/18 05:55 Nuclear Stress Test - Treadmil [NM] AM (NON MEDS) Clinical Impression(s) from Imaging Studies Chest X-Ray 11/05/18 19:14 IMPRESSION: No acute pulmonary findings. Electronically Signed: Brain Quiles MD at 19:26 EDT Tel , Service support , None Operations: None Procedures: Stress test Summary of Care Provided: The patient is a 73 year old F with PMHx of Chappell's esophagus/GERD, hyperlipidemia, who comes in with complaints of chest discomfort, she is described as mid-sternal with no associated diaphoresis or dizziness or palpitation. Her EKG had shown some lateral ST segment depression that was different, from her previous EKG. Troponins were negative. Patient underwent a stress test that was negative. Vitals continue to be stable. No acute events overnight. She was recommended to increase her PPIs to twice daily. She was recommended to follow-up with a hydroelectric production technician, Dr. Guthrie in the outpatient. Subjective: Review of discharge, patient planes of slight mid sternal chest discomfort. History of Chappell's esophagus. On PPI 40 mg daily. Discussed the plan of care extensively with the patient and her daughter. All questions were answered. Recommended increasing PPI to twice a day. She will follow-up with Dr. Pak to the [facility]. - Physical Exam General: Alert, Oriented x3, Cooperative, No apparent distress HEENT: Atraumatic, PERRLA, EOMI, Normocephalic Oral: Moist Mucosa Neck: Supple, No JVD, Negative Carotid Bruits Lungs: Clear to auscultation, Normal air movement Cardiovascular: Regular rate, Regular Rhythm, Normal S1, Normal S2, No murmurs Abdomen: Bowel Sounds Present, Soft, Non Tender, Non-Distended, No Hepato-splenomegaly Extremities: No edema Skin: No rashes, No breakdown Musculoskeletal: No Tenderness to Palpation of Joints or Extremities Neurological: Cranial nerves II-XII grossly intact, Neuro grossly intact Psych/Mental Status: Normal Affect, Appropriate Vital Signs Temp Pulse Resp BP Pulse Ox 97.3 F L 98 16 140/38 H 92 11/06/18 09:00 11/06/18 09:12 11/06/18 09:00 11/06/18 09:00 11/06/18 09:00 Oxygen Flow Rate (L/min) 2 Oxygen Delivery Method Room Air Weight: 58 kg Body Mass Index (BMI) 23.3 Laboratory Tests Past 24 Hrs 11/05/18 11/05/18 11/05/18 18:21 18:21 22:30 WBC 11.4 H RBC 4.92 Hgb 14.5 Hct 42.5 MCV 86.4 MCH 29.5 MCHC 34.1 RDW 12.6 RDW Differential 38.8 Plt Count 277 MPV 10.8 Immature Gran % (Auto) 0.500 Neut % (Auto) 66.6 Lymph % (Auto) 19.5 [place] % (Auto) 13.0 H Eos % (Auto) 0.4 Baso % (Auto) 0.0 Absolute Neuts (auto) 7.6 Absolute Lymphs (auto) 2.22 Total Counted Not Reportable PT INR APTT Sodium 133 L Potassium 3.3 L Chloride 100 Carbon Dioxide 24.0 Anion Gap 9 BUN 17 Creatinine 0.68 Estim Creat Clear Calc 38.44 Est GFR (MDRD) Af Amer 108 Est GFR (MDRD) Non-Af 90 BUN/Creatinine Ratio 25.0 H Glucose 101 Calcium 8.7 Total Bilirubin 0.90 Direct Bilirubin 0.19 AST 19 ALT 23 Alkaline Phosphatase 116 Troponin I < 0.015 < 0.015 Total Protein 7.1 Albumin 3.9 Globulin 3.2 Triglycerides Cholesterol LDL Cholesterol VLDL Cholesterol HDL Cholesterol Lipase 73 11/06/18 11/06/18 11/06/18 02:33 02:33 02:33 WBC 12.3 H RBC 4.70 Hgb 14.0 Hct 41.1 MCV 87.4 MCH 29.8 MCHC 34.1 RDW 12.5 RDW Differential 40.2 Plt Count 251 MPV 10.0 Immature Gran % (Auto) 0.300 Neut % (Auto) 69.0 Lymph % (Auto) 19.2 [place] % (Auto) 10.8 H Eos % (Auto) 0.6 Baso % (Auto) 0.1 Absolute Neuts (auto) 8.5 H Absolute Lymphs (auto) 2.35 Total Counted Not Reportable PT INR APTT Sodium 133 L Potassium 3.8 Chloride 101 Carbon Dioxide 25.0 Anion Gap 7 BUN 22 H Creatinine 0.65 Estim Creat Clear Calc 38.44 Est GFR (MDRD) Af Amer 114 Est GFR (MDRD) Non-Af 94 BUN/Creatinine Ratio 33.7 H Glucose 94 Calcium 8.4 L Total Bilirubin Direct Bilirubin AST ALT Alkaline Phosphatase Troponin I < 0.015 Total Protein Albumin Globulin Triglycerides 154 Cholesterol 176 LDL Cholesterol 73 VLDL Cholesterol 31 HDL Cholesterol 72 Lipase 11/06/18 11/06/18 11/06/18 05:15 05:15 05:15 WBC 9.4 RBC 4.75 Hgb 13.9 Hct 41.1 MCV 86.5 MCH 29.3 MCHC 33.8 RDW 12.5 RDW Differential 38.8 Plt Count 239 MPV 10.8 Immature Gran % (Auto) 0.400 Neut % (Auto) 66.2 Lymph % (Auto) 19.0 [place] % (Auto) 13.6 H Eos % (Auto) 0.7 Baso % (Auto) 0.1 Absolute Neuts (auto) 6.3 Absolute Lymphs (auto) 1.79 Total Counted Not Reportable PT 13.5 INR 1.1 APTT 23.5 L Sodium 136 Potassium 3.7 Chloride 100 Carbon Dioxide 27.0 Anion Gap 9 BUN 21 H Creatinine 0.68 Estim Creat Clear Calc 38.44 Est GFR (MDRD) Af Amer 109 Est GFR (MDRD) Non-Af 90 BUN/Creatinine Ratio 30.9 H Glucose 96 Calcium 8.7 Total Bilirubin Direct Bilirubin AST ALT Alkaline Phosphatase Troponin I Total Protein Albumin Globulin Triglycerides Cholesterol LDL Cholesterol VLDL Cholesterol HDL Cholesterol Lipase Discharge Diet: Low fat/ Low Cholesterol, 2000 mg Sodium Diet Discharge Activity: Return to Normal Activity Weight Bearing Status: Weight bearing as tolerated Home Medications: Medications to take at Discharge Bacillus coagulans 10 billion cell capsule,delayed release cell PO QDAY ea 09/13/17 amlodipine 2.5 mg tablet 5 mg PO QDAY 90 Days #90 tab 09/13/17 calcium carbonate 600 mg(1,500 mg)-vitamin D3 800 unit chewable tablet 1 tab PO BID 09/13/17 fluoxetine 40 mg capsule 40 mg PO QDAY 30 Days #30 cap 09/13/17 glucosamine 500 wv-rjpoddjnl-xdzaqbks comp 400 mg-D3 667 unit-C-Mn cap cap PO QDAY ea 09/13/17 multivitamin tablet 1 tab PO QAM 09/13/17 simvastatin 40 mg tablet 40 mg PO QPM 09/13/17 Mag Hydrox/Al Hydrox/Simeth [Mylanta II] 30 ml PO Q4H PRN PRN #2 bottle 11/06/18 Omeprazole 40 mg PO BID #60 capsule. 11/06/18 Following Prescrptions Were Given to Patient: Mag Hydrox/Al Hydrox/Simeth [Mylanta II] 30 ml PO Q4H PRN PRN #2 bottle PRN Reason: Heartburn Omeprazole 40 mg PO BID #60 capsule. Primary Care Physician: Sammy Aleman MD [Primary Care Provider] - Please follow up with your Primary Care Physician in: within 1-2 weeks Medical Necessity - Tobacco Use Smoking Status: Former smoker Tobacco Use: Cigarettes Meaningful Use Info Meaningful Use Diagnoses (Choose all that apply): None applicable Code Visit OBSV E&M: 15694 Observation care discharge
[2018-11-06] MEDS: proCHLORPERazine 10 MG/2 ML Vial IV (12:13)
--- NOTE | 2018-11-06 13:54 | CASEMGMT ---
Patient has a Healthcare Living Will and she is aware it is not on file. She does not have a Healthcare POA. Larissa NEIVLLE MSW
[2018-11-06] MEDS: Acetaminophen 500 MG Tablet 1000 MG PO (16:16)
== END 2018-11-06 11:25 | disposition home or self-care (01) ==
LOC: ED 11-06 00:15 → PCU 11-06 00:16
PROVIDERS: Admitting Provider Family Medicine; Emergency Provider Emergency Medicine; Family Provider Internal Medicine; PCP Internal Medicine; Visit Provider Internal Medicine
DX: R07.89 Other chest pain (principal); R11.2 Nausea with vomiting, unspecified; E78.5 Hyperlipidemia, unspecified; R06.09 Other forms of dyspnea; I10 Essential (primary) hypertension; R00.0 Tachycardia, unspecified; K21.9 Gastro-esophageal reflux disease without esophagitis; M19.90 Unspecified osteoarthritis, unspecified site; I73.00 Raynaud's syndrome without gangrene; Z87.891 Personal history of nicotine dependence; Z82.49 Family history of ischemic heart disease and other diseases of the circulatory system; Z79.899 Other long term (current) drug therapy; F32.9 Major depressive disorder, single episode, unspecified; K22.70 Barrett's esophagus without dysplasia
CPT/HCPCS: 36415; 71046; 78452; 80048; 80061; 80076; 83690; 84484; 85025; 85610; 85730; 93005; 93017; 96365; 96372; 96375; 96376; 99218; 99285; A9500; J7040; A4216; G0378; J2405

== ENCOUNTER 2019-06-14 19:31 | Emergency (ER) | payer MEDICARE, SELFPAY ==
[2019-06-14 19:31] VITALS: BMI 24.5
[2019-06-14 19:32] VITALS: BP 129/72; PULSE 120; RESP 18; O2SAT 94
[2019-06-14 19:35] VITALS: BP 129/72; PULSE 120; RESP 18; TEMP 36.1; O2SAT 97; BMI 26.2
[2019-06-14 19:50] VITALS: BP 135/82; PULSE 120; RESP 18; O2SAT 96
--- NOTE | 2019-06-14 19:54 | CT_ITS ---
STUDY: CT FACIAL BONES WITHOUT CONTRAST REASON FOR EXAM: Female, 73 years old. Fall. RADIATION DOSAGE (If Supplied By Facility): CTDIvol = ( 29.38 ) mGy, DLP = ( 606.22 ) mGycm TECHNIQUE: The patient was scanned in a multi detector CT scanner. Sagittal and coronal images were reconstructed. Individualized dose optimization techniques were used for this CT. COMPARISON: None. FINDINGS: Normal soft tissue structures. Normal orbital garcia and orbital contents. There is a comminuted nasal bone fracture with mild displacement. Normal facial bones. There is no demonstrated fracture. Normal visualized paranasal sinuses. CT/Sinus/Facial Bone IMPRESSION: 1. Comminuted nasal bone fracture with otherwise no evidence of facial fracture. Limited view of the teeth secondary to metallic artifact. Electronically Signed: Shahab Smart DO at 20:28 EST , Service support ,
--- NOTE | 2019-06-14 19:54 | CT_ITS ---
STUDY: CT BRAIN WITHOUT CONTRAST REASON FOR EXAM: Female, 73 years old. Fall, face and teeth pain. RADIATION DOSAGE (If Supplied By Facility): CTDIvol = ( 44.99 ) mGy, DLP = ( 745.49 ) mGycm TECHNIQUE: Transaxial CT imaging of the brain was performed without administration of intravenous contrast material. Individualized dose optimization techniques were used for this CT. COMPARISON: No relevant priors. FINDINGS: Normal soft tissue structures. Normal calvarium. There is mild cerebral atrophy with widening of the extra-axial spaces and ventricular dilatation. There are areas of decreased attenuation within the white matter tracts of the supratentorial brain, consistent with microvascular disease changes. Normal basal ganglia and thalami. Normal brainstem. Normal cerebellum. There is no intracranial hemorrhage. There are no findings of an acute ischemic infarction. Normal visualized paranasal sinuses. Comminuted nasal bone fracture is noted on exam. CT/Brain/Head without Contrast IMPRESSION: 1. Senescent changes with no evidence of acute intracranial bleed, mass or ischemia. Comminuted nasal bone fracture is present. Electronically Signed: Shahab Smart DO at 20:27 EST , Service support ,
--- NOTE | 2019-06-14 20:41 | ED.VISSUMM ---
- ER Visit Summary Date of Service: 06/14/19 Chief Complaint: Fall, nose pain History of Present Illness: The patient is a 73 F who presents after a fall. She states that she tripped and fell. She landed forward hitting her face. There was no LOC. She complains of some nose pain in the area. She is on no blood thinning medications. She has no neck pain. No back pain. She denies any chest or abdominal pain. She feels a little bit jittery but does have a history of anxiety. Physical Examination: Vital signs reviewed. HEENT exam shows abrasions to the nose. She has no active bleeding but there is some dried blood in the right nares and from the mouth. No mouth lacerations are seen. Heart is echocardiac and regular rhythm without murmurs. Lungs are clear to auscultation. Abdomen is soft and nontender. Extremities reveal no edema. Skin exam normal. Neurologic exam normal. Test Results: CT scan of the head and face reveals a comminuted nasal bone fracture. No other findings are seen Emergency Department Course and Treatment: Patient declined any pain medications. CAT scans reveal a nasal bone fracture. I do not feel she requires any further interventions for this. She will take Tylenol and use ice at home. She will follow-up with her PCP Treatment Plan: [] Disposition: Discharge Impression: Comminuted nasal bone fracture This note was generated with [employer] dictation software. It may contain incorrect words, spelling, and punctuation that were not noted in review of the chart prior to signing ED Disposition - Plan for ED Patient: Referrals: Sammy Aleman MD [Primary Care Provider] -
--- NOTE | 2019-06-14 20:43 | ED.DEP ---
ED Disposition - Plan for ED Patient: Disposition: Home or Assisted Living Instructions: FALL, Mechanical Referrals: Sammy Aleman MD [Primary Care Provider] -
[2019-06-14] MEDS: Oxymetazoline 0.05% 1 SPRAY SPRAY.BTL 2 SPRAY NASAL (21:06)
[2019-06-14 21:07] VITALS: BP 121/74; PULSE 102; RESP 18; O2SAT 98
[2019-06-14 21:28] VITALS: BP 121/74; PULSE 94; RESP 18; O2SAT 100
--- NOTE | 2019-06-14 21:29 | ED.RN ---
THIS NURSE REVIEWED D/C INSTRUCTIONS WITH PT. PT VERBALIZED UNDERSTANDING OF INSTRUCTIONS. PT DENIES FURTHER NEEDS OR QUESTIONS AT THIS TIME
== END 2019-06-14 21:29 | disposition home or self-care (01) ==
PROVIDERS: Emergency Provider Emergency Medicine; Family Provider Internal Medicine; PCP Internal Medicine
DX: S02.2XXA Fracture of nasal bones, initial encounter for closed fracture (principal); W01.0XXA Fall on same level from slipping, tripping and stumbling without subsequent striking against object, initial encounter; F41.9 Anxiety disorder, unspecified
CPT/HCPCS: 70450; 70486; 99284

== ENCOUNTER 2021-01-24 14:23 | Emergency (ER) | payer MEDICARE, SELFPAY ==
[2021-01-24 14:23] VITALS: BP 160/70; PULSE 143; RESP 16; TEMP 36.5; O2SAT 100; BMI 24.7
--- NOTE | 2021-01-24 14:43 | EKG12_ITS ---
Test Reason : CHEST PRESSURE Blood Pressure : / mmHG Vent. Rate : 125 BPM Atrial Rate : 125 BPM P-R Int : 132 ms QRS Dur : 080 ms QT Int : 320 ms P-R-T Axes : 049 -03 061 degrees QTc Int : 461 ms Sinus tachycardia Nonspecific ST abnormality Abnormal ECG Confirmed by MAINE GANN, WALLY ([id number]), design editor SANTANA WISE ([id number]) on 01/26/2021 2:26:10 PM Referred By: TL/MR Confirmed By:WALLY GROVE MD
--- NOTE | 2021-01-24 14:50 | RAD_ITS ---
STUDY: X-RAY CHEST REASON FOR EXAM: Female, 75 years old. Shortness of breath. TECHNIQUE: Single frontal view of the chest. COMPARISON: 11/05/2018. FINDINGS: Stable hyperexpansion. There is no demonstrated pleural abnormality. Normal size heart. Normal mediastinum and azeb. Normal visualized pulmonary arteries. Aortic tortuosity. Normal visualized thoracic spine. Normal visualized ribs, clavicles, and shoulders. There is no demonstrated abnormality of the visualized soft tissue structures of the upper abdomen. RAD/Chest 1 View (Portable) IMPRESSION: Stable hyperexpansion with no acute or active cardiopulmonary disease. Electronically Signed: Griffin Choudhury MD at 15:25 EDT , Service support ,
--- NOTE | 2021-01-24 14:52 | EDS_ITS ---
HPI History of Present Illness Chief Complaint: Chest Pain Informant: patient Narrative Narrative: Patient sent from urgent care for evaluation of dyspnea with palpitations persistent for 2 days. Denies recent vomiting or diarrhea. Denies chest pains. Decreased p.o. intake. History of tachycardia in the past. She states she has never had a Holter monitor. She has seen cardiology Dr. Emma luna for a checkup. Denies any dysrhythmia history. Patient states normal dry cough. History of hypertension, hyperlipidemia, GERD, Raynaud's syndrome. Heart rate was in the 120s at the facility. [facility] Medical History Anxiety Arthritis Barretts esophagus Chronic back pain Depression Frequent headaches GERD (gastroesophageal reflux disease) Hyperlipidemia Hypertension IBS (irritable bowel syndrome) Insomnia Lichen planus Obsessive compulsive disorder Osteopenia Raynaud phenomenon Vitamin D deficiency Home Medications Bacillus coagulans 10 billion cell capsule,delayed release 1 tab PO QDAY ea 09/13/17 [History Last Taken Unknown] amlodipine 2.5 mg tablet 5 mg PO QDAY 90 Days #90 tab 09/13/17 [History Last Taken Unknown] calcium carbonate 600 mg(1,500 mg)-vitamin D3 800 unit chewable tablet 600 mg PO DAILY #0 09/13/17 [History Last Taken Unknown] fluoxetine 40 mg capsule 40 mg PO QDAY 30 Days #30 cap 09/13/17 [History Last Taken Unknown] multivitamin 1 tab PO QAM 09/13/17 [History Last Taken Unknown] simvastatin 40 mg tablet 40 mg PO QPM 09/13/17 [History Last Taken Unknown] omeprazole 40 mg PO BID #60 capsule. 11/06/18 [Rx Last Taken Unknown] lorazepam 1 tab PO QHS 06/14/19 [History Last Taken Unknown] Allergy/AdvReac Type Severity Reaction Status Date / Time No Known Allergies Allergy Verified 01/24/21 14:25 Family History Father Heart disease CAD (coronary artery disease) >55 Surgical History History of arthroscopy of left knee (~04/2017) History of bladder surgery History of cataract surgery History of tonsillectomy History of total abdominal hysterectomy Status post epidural steroid injection Social History Smoking Status: Former smoker quit date: 09/22/90 alcohol intake: current alcohol intake frequency: a few times a week Alcohol type: wine substance use type: does not use caffeine: Yes what type of physical activity do you participate in: walking frequency: 1-2 times per week seatbelt use: always do you feel safe at home: Yes additional social history: - Richie Patient and both retired ROS ROS ED Constitutional Constitutional ED: Denies chills, fever(s) or sweats Eyes Eyes: Denies change in vision ENT ENT ED: Denies dysphagia or sore throat Cardiovascular Cardiovascular: Reports palpitations and racing heartbeat; Denies chest pain or leg edema Respiratory/Chest Respiratory/Chest: Reports cough; Denies dyspnea or dyspnea on exertion Gastrointestinal Gastrointestinal: Denies abdominal pain, diarrhea, nausea or vomiting Genitourinary Genitourinary ED: Denies dysuria, hematuria or urinary frequency Musculoskeletal Musculoskeletal: Denies back pain, extremity pain or neck pain Integumentary Denies rash or wounds Neurologic Neurologic: Denies headache(s), paresthesias or weakness EXAM Physical Exam Const Vital Signs: 01/24/21 14:23 01/24/21 14:34 01/24/21 14:48 Temperature 97.7 F L Temperature Source Temporal Pulse Rate 143 H Respiratory Rate 16 Respiratory Effort Normal Non-Labored Blood Pressure 160/70 H Blood Pressure Mean 100 Pulse Ox 100 Oxygen Delivery Method Room Air Room Air 01/24/21 17:05 01/24/21 18:15 Temperature Temperature Source Pulse Rate 114 H 98 Respiratory Rate 17 18 Respiratory Effort Blood Pressure 139/72 H 135/80 H Blood Pressure Mean 94 98 Pulse Ox 95 98 Oxygen Delivery Method Room Air Room Air Positive well nourished and well developed General Appearance ED: well developed and NAD HEENT Reports dry mucous membranes normocephalic and atraumatic Mouth ED: Yes dry mucous membranes Mouth: dry mucous membranes Eyes PERRL, EOMs intact bilaterally and conjunctivae normal General Eye ED: Yes normal appearance of both eyes Neck no lymphadenopathy and supple General: Negative for tenderness Chest Wall Chest: Negative for tenderness Resp normal respiratory effort and normal air movement Effort and Inspection: symmetric chest movement; Negative for respiratory distress Cardio regular rhythm and no murmurs Rate: tachycardic Peripheral Pulses: pulses 2+ throughout GI normal to inspection, nondistended, normoactive bowel sounds and non-tender Palpation: Negative for guarding or rebound tenderness present Back/Spine no CVA tenderness and no thoracic nor lumbar tenderness Extremity normal to inspection General Extremety ED: Negative for edema or tenderness General Extremity: Negative for edema Neuro oriented x3 and no sensory deficits noted Sensorium / Orientation: awake and alert Skin no rashes or lesions noted and no wounds MDM MDM MDM Narrative Medical decision making narrative: Patient EKG noted sinus tachycardia. Heart rate 120s to 140s. Clinically dry mucosal membranes with reported decreased p.o. intake. She is given IV fluids secondary to this. Heart rate went down to 110s. Check labs electrolytes normal TSH troponin negative. She denied any chest pains. Hemoglobin 13. Her white count was 15.7 she denied any urinary symptoms. Her chest x-ray was negative. Patient given 1 dose of Lopressor IV to evaluate for possible underlying atrial flutter, this was not noticed with medications, however heart rate went down to the 90s to remain in normal sinus rhythm. Unclear of any dysrhythmia at this time. She is set up for a 48-hour Holter monitor further evaluation. She has seen Dr. Carter in the past for which she will follow up with him. Signs and some discussed return. All questions were answered. Lab Data Labs: Laboratory Results - last 24 hr 01/24/21 01/24/21 14:35 14:35 WBC 15.7 H RBC 4.52 Hgb 13.2 Hct 40.1 MCV 88.7 MCH 29.2 MCHC 32.9 RDW Std Deviation 41.2 RDW Coeff of [place] 12.7 Plt Count 279 MPV 10.8 Immature Gran % (Auto) 0.800 Neut % (Auto) 86.4 H Lymph % (Auto) 9.1 L [place] % (Auto) 3.6 Eos % (Auto) 0.0 Baso % (Auto) 0.1 Absolute Neuts (auto) 13.6 H Absolute Lymphs (auto) 1.42 Nucleated RBC % 0 Sodium 134 L Potassium 3.6 Chloride 102 Carbon Dioxide 23.0 Anion Gap 9 BUN 24 H Creatinine 0.94 Estim Creat Clear Calc 39.64 Est GFR (MDRD) Af Amer 74 Est GFR (MDRD) Non-Af 61 BUN/Creatinine Ratio 25.6 H Glucose 159 H Calcium 9.4 Magnesium 2.2 Troponin I High Sens 3.5 TSH 0.76 Radiography Chest X-Ray - ED: 1 View, Read by ED Physician, Read by Radiologist and No Acute Disease Diagnostic Testing: Radiology Impression Chest X-Ray 01/24/21 14:50 IMPRESSION: Stable hyperexpansion with no acute or active cardiopulmonary disease. Electronically Signed: Griffin Choudhury MD at 15:25 EDT , Service support , EKG Initial EKG: Attestation: I personally reviewed and interpreted this EKG as follows: Comments: Sinus tachycardia rate of one oh five, no ST or T wave changes. Discharge Plan Triage Chief Complaint: Chest Pain ED Provider: Clint Cano Dx/Rx/DC Orders Clinical Impression: Sinus tachycardia by electrocardiogram, Heart palpitations, Dehydration Instructions: Understanding Tachycardia, ED Dehydration (Adult), ED Palpitations Prescriptions: No Action simvastatin 40 mg tablet 40 mg PO QPM RF: 0 amlodipine 2.5 mg tablet 5 mg PO QDAY 90 Days Qty: 90 RF: 0 fluoxetine 40 mg capsule 40 mg PO QDAY 30 Days Qty: 30 RF: 0 calcium carbonate-vitamin D3 600 MG tablet,chewable 600 mg PO DAILY Qty: 0 RF: 0 Bacillus coagulans [Probiotic (B. coagulans)] 10 billion cell capsule,delayed release(DR/EC) 1 tab PO QDAY RF: 0 multivitamin tablet 1 tab PO QAM RF: 0 omeprazole 40 MG Capsule.Dr 40 mg PO BID Qty: 60 RF: 0 lorazepam 1 MG tablet 1 tab PO QHS RF: 0 Primary Care Provider: Sammy Aleman Referrals: Dariel Carter MD [STAFF PHYSICIAN] - 3-5 Days Sammy Aleman MD [Primary Care Provider] - Activity Restrictions/Additional Instructions: Continue oral hydration at home. 48-hour Holter monitor. Follow-up with Dr. Carter Disposition Disposition: Home, Self Care
[2021-01-24] MEDS: 0.9% Normal Saline 1,000 ML 1000 ML IV (14:54)
[2021-01-24 14:58] LABS: Absolute Lymphocyte Count 1.42 X10^3/uL (0.83-4.51); Absolute Neutrophil Count 13.6 X10^3/uL (2.0-7.7); Basophil# 0.02 X10^3/uL; Basophil% 0.1 % (0-1); Hematocrit 40.1 % (37-47); Hemoglobin 13.2 g/dL (12.0-15.0); Lymphocyte # 1.42 X10^3/ul (0.83-4.51); Lymphocyte % 9.1 % (19-41); Mean Corp Hgb Conc 32.9 g/dL (32-36); Mean Corpuscular Hgb 29.2 pg (27.0-32.0); Mean Corpuscular Volume 88.7 fL (81-99); Mean Platelet Vol. 10.8 fl (6.2-12.0); Monocyte# 0.57 X10^3/uL; Monocyte% 3.6 % (0-10); NRBC Flagged by Analyzer 0 % (0-5); Neutrophil # 13.56 X10^3/uL (2.7-7.7); Neutrophil % 86.4 % (47-70); Platelet Count 279 K/mm3 (150-450); RBC Distribution Width CV 12.7 % (11.6-14.6); RBC Distribution Width SD 41.2 fl (35.1-43.9); Red Blood Count 4.52 M/mm3 (4.2-5.4); White Blood Count 15.7 K/mm3 (4.4-11.0)
[2021-01-24 15:18] LABS: Anion Gap 9 (5-15); BUN 24 mg/dL (7-18); BUN/Creat Ratio 25.6 RATIO (10-20); Calcium,Total 9.4 mg/dL (8.5-10.1); Chloride 102 mmol/L (98-107); Creatinine, Serum 0.94 mg/dL (0.55-1.02); EST Glomerular Filtration Rate 61 mL/min (>60); Est Glom Filt Rate - Afr Amer 74 mL/min (>60); Estimated Creatinine Clearance 39.64 ml/min; Glucose 159 mg/dL (74-106); Magnesium 2.2 mg/dL (1.6-2.6); Potassium 3.6 mmol/L (3.5-5.1); Sodium Level 134 mmol/L (136-145); Thyroid Stim Hormone (TSH) 0.76 uIU/mL (0.358-3.74); Troponin-I HS 3.5 pg/mL (3.0-53.7)
[2021-01-24] MEDS: Metoprolol Tartrate 5 MG/5 ML Vial IV (17:04)
[2021-01-24 17:05] VITALS: BP 139/72; PULSE 114; RESP 17; O2SAT 95
[2021-01-24 18:15] VITALS: BP 135/80; PULSE 98; RESP 18; O2SAT 98
[2021-01-24 19:20] VITALS: BP 140/75; PULSE 101; RESP 17; O2SAT 99
== END 2021-01-24 19:58 | disposition home or self-care (01) ==
PROVIDERS: Emergency Provider Emergency Medicine; PCP Internal Medicine
DX: E86.0 Dehydration (principal); R00.0 Tachycardia, unspecified; R00.2 Palpitations; F41.9 Anxiety disorder, unspecified; M19.90 Unspecified osteoarthritis, unspecified site; F32.9 Major depressive disorder, single episode, unspecified; K21.9 Gastro-esophageal reflux disease without esophagitis; E78.5 Hyperlipidemia, unspecified; I10 Essential (primary) hypertension; Z79.899 Other long term (current) drug therapy; Z87.891 Personal history of nicotine dependence
CPT/HCPCS: 71045; 80048; 83735; 84443; 84484; 85025; 93005; 93225; 93226; 96361; 96374; 99284; J7030; A4216

== ENCOUNTER → 2021-01-24 19:27 | Outpatient (CLI) | payer MEDICARE, SELFPAY ==
[2021-01-24 14:23] VITALS: BMI 24.7
== END ==
PROVIDERS: PCP Internal Medicine; Visit Provider Internal Medicine Cardiovascular Disease
DX: R00.2 Palpitations (principal)
CPT/HCPCS: 93225; 93226

== ENCOUNTER 2021-10-22 15:00 | Outpatient (CLI) | payer MEDICARE, SELFPAY ==
--- NOTE | 2021-10-22 15:04 | ECHOD_ITS ---
Reason For Study: MITRAL AND TRICUSPID INSUFFICIENCY Procedure This was a 2D Doppler, Color Flow transthoracic echocardiogram. Exam performed in department. Left Ventricle The estimated ejection fraction is 60 %. Normal diastology for age. No regional wall motion abnormalities noted. Right Ventricle Normal RV size. Normal systolic function. Atria Normal left atrium. Normal right atrium. No doppler evidence for ASD. Mitral Valve There is no mitral valve stenosis. Trivial mitral valve insufficiency. Tricuspid Valve There is no tricuspid stenosis. Trivial tricuspid valve insufficiency. Unable to estimate RV systolic pressure due to insufficient tricuspid regurgitant envelope. Aortic Valve Trisinus/trileaflet aortic valve. There is no aortic stenosis. No aortic valve insufficiency. Pulmonic Valve There is no pulmonic valvular stenosis. Trivial pulmonic valve insufficiency identified. Great Vessels Normal aortic root. Pericardium/Pleural Trivial pericardial effusion. MMode/2D Measurements & Calculations LVIDd: 4.0 cm IVSd: 1.1 cm LVOT diam: 3.3 cm LVIDs: 2.2 cm LVPWd: 0.85 cm LVOT area: 8.6 cm2 FS: 45.4 % Ao root diam: 3.2 cm LAV(MOD-bp): 39.7 ml LVAd ap4: 21.8 cm2 LAV(MOD-bp) Indexed: 24.5 ml/m2 LVLd ap4: 6.2 cm LAV(MOD-sp2): 48.6 ml EDV(MOD-sp4): 63.3 ml LAV(MOD-sp4): 32.3 ml EDV(sp4-el): 64.8 ml LVAs ap4: 14.0 cm2 LVLs ap4: 5.8 cm ESV(MOD-sp4): 31.3 ml ESV(sp4-el): 29.0 ml EF(MOD-sp4): 50.5 % EF(sp4-el): 55.3 % SV(MOD-sp4): 32.0 ml SV(sp4-el): 35.9 ml LA A4 area: 14.7 cm2 LA dimension(2D): 3.7 cm RA A4 area: 14.5 cm2 Doppler Measurements & Calculations MV E max vince: 97.6 cm/sec Lat Peak E' Vince: 7.2 cm/sec Med Peak E' Vince: 5.6 cm/sec MV A max vince: 79.8 cm/sec E/E' lat: 13.5 E/E' med: 17.4 MV E/A: 1.2 Ao V2 max: 134.8 cm/sec AI max vince: 418.0 cm/sec LV V1 max: 92.2 cm/sec Ao max P.3 mmHg AI max P.9 mmHg LV V1 max P.4 mmHg SOLOMON(V,D): 5.9 cm2 AI dec slope: 464.0 cm/sec2 AI P1/2t: 263.9 msec PA V2 max: 81.9 cm/sec PI dec slope: 374.9 cm/sec2 TR max vince: 296.4 cm/sec TR max P.1 mmHg ECHO/Echo Complete Interpretation Summary The estimated ejection fraction is 60 %. Trivial mitral valve insufficiency. Ordering Physician: Maryam Pennington Referring Physician: Maryam Pennington Performed By: Essence Machuca RCS
== END 2021-10-22 23:59 | disposition home or self-care (01) ==
LOC: CVS 15:03
PROVIDERS: PCP Internal Medicine; Referring Provider Nurse Practitioner Gerontology; Visit Provider Nurse Practitioner Gerontology
DX: I34.0 Nonrheumatic mitral (valve) insufficiency (principal); I07.1 Rheumatic tricuspid insufficiency
CPT/HCPCS: 93306

== ENCOUNTER 2022-04-13 14:28 | Emergency (ER) | payer MEDICARE, SELFPAY ==
[2022-04-13 14:29] VITALS: BP 167/68; PULSE 83; RESP 15; TEMP 35.8; O2SAT 98; BMI 25.6
--- NOTE | 2022-04-13 15:06 | EDS_ITS ---
HPI History of Present Illness Chief Complaint: Fall Detail of Chief Complaint: Injury left elbow after mechanical fall Informant: patient Occured/Mechanism Mechanism/Context: Yes blunt trauma, Yes fall and Yes same level fall Comment: Patient believes she hit the hinge on one of the kitchen cupboards. Onset/Context/Timing Onset: Hours Context: Sudden Onset Timing: Intermittent Quality of Pain: - (Presently none) Location: Left elbow Current Severity: Gone Maximum Severity: Moderate Worsened by: Initial impact Relieved by: Nothing specific Associated Symptoms Associated Symptoms: Negative for Parasthesia, Weakness or Loss of Funtion Narrative Narrative: Patient is an elderly 76-year-old [id number] woman who presents with injury to her right elbow. She fell in the kitchen. She believes she struck her left elbow against a cabinet hinge. Tetanus is unknown. She denies paresthesia, anesthesia medics. She is on no immunosuppressive meds. She is on no anticoagulant. There is no history of head trauma. Tetanus Immunization: Unknown Prior similar symptoms: No Recent Illness/Hospitalization: No PFSH PFS Medical History Anxiety Arthritis Barretts esophagus Chronic back pain Dehydration Depression Essential hypertension Frequent headaches GERD (gastroesophageal reflux disease) History of gastroesophageal reflux (GERD) Hyperlipidemia IBS (irritable bowel syndrome) Insomnia Lichen planus Obsessive compulsive disorder Osteopenia Raynaud phenomenon Vitamin D deficiency Home Medications Bacillus coagulans 10 billion cell capsule,delayed release (Probiotic (B. coagulans)) 1 tab PO QDAY 09/13/17 [History Last Taken Unknown] calcium carbonate 600 mg-vitamin D3 20 mcg (800 unit) chewable tablet 600 mg PO DAILY ##0 09/13/17 [History Last Taken Unknown] fluoxetine 40 mg capsule 40 mg PO QDAY 30 days #30 caps 09/13/17 [History Last Taken Unknown] multivitamin 1 tab PO QAM 09/13/17 [History Last Taken Unknown] simvastatin 40 mg tablet 40 mg PO QPM 09/13/17 [History Last Taken Unknown] lorazepam 1 mg tablet 1 tab PO QHS 06/14/19 [History Last Taken Unknown] pantoprazole 40 mg tablet,delayed release (Protonix) 40 mg PO BID 01/28/21 [History Last Taken Unknown] conjugated estrogens 0.625 mg/gram vaginal cream (Premarin) 0.625 mg vaginal DAILY 10/05/21 [History Last Taken Unknown] metoprolol succinate 50 mg tablet,extended release 24 hr (Toprol XL) 50 mg PO DAILY #90 tabs 01/13/22 [Rx Last Taken Unknown] hydrochlorothiazide 25 mg tablet 25 mg PO DAILY #90 tabs 04/06/22 [Rx Last Taken Unknown] losartan 100 mg tablet 100 mg PO DAILY #90 tabs 04/06/22 [Rx Last Taken Unknown] Allergy/AdvReac Type Severity Reaction Status Date / Time No Known Allergies Allergy Verified 04/13/22 14:29 Family History Father Heart disease CAD (coronary artery disease) >55 Surgical History History of arthroscopy of left knee (~04/2017) History of bladder surgery History of cataract surgery History of tonsillectomy History of total abdominal hysterectomy Status post epidural steroid injection Social History (Updated 04/13/22 @ 15:[address] Beny Cuba MD) household members: spouse Smoking Status: Former smoker quit date: 09/22/90 alcohol intake: current alcohol intake frequency: a few times a week Alcohol type: wine substance use type: does not use caffeine: Yes what type of physical activity do you participate in: walking frequency: 1-2 times per week seatbelt use: always do you feel safe at home: Yes additional social history: - Richie Patient and both retired ROS ROS ED Constitutional Constitutional ED: Denies chills, fever(s) or subjective Eyes Eyes: Denies blurry vision or change in vision Musculoskeletal Musculoskeletal: Denies back pain, myalgias or neck pain Integumentary Reports other Details: Irregularly shaped laceration left elbow 4.5 cm ; Denies Abrasions or rash Hematologic/Lymphatic Hematologic/Lymphatic: Denies easy bleeding or easy bruising EXAM Physical Exam Const Vital Signs: 04/13/22 14:29 Temperature 96.5 F L Temperature Source Temporal Pulse Rate 83 Respiratory Rate 15 Blood Pressure 167/68 H Blood Pressure Mean 101 Pulse Ox 98 Oxygen Delivery Method Room Air Positive well nourished and well developed General Appearance ED: well developed and NAD HEENT Reports moist mucous membranes normocephalic and atraumatic Eyes PERRL and EOMs intact bilaterally Eyes Narrative: Sclera is anicteric. There is no subconjunctival hemorrhage. Neck full ROM Resp normal respiratory effort and clear to auscultation bilaterally Cardio regular rate, regular rhythm, S1 normal heart sound and S2 normal heart sound Extremity full ROM; Negative for normal to inspection Extremity Narrative: There is no pain the patient with olecranon process. Is no pain the patient of the lateral medial epicondyle. Patient has full range of motion of the elbow. Axillary, median, radial and ulnar function intact. Radial pulses palpable. There is a jagged laceration that is 4.5 cm in length. The laceration appears to involve the olecranon bursa. There is a groove over the olecranon process. Uncertain whether this is fascia or muscle or bone. Will obtain x-ray. Neuro oriented x3, CN's II-XII intact bilaterally, moves all extremities, no focal motor deficits and no sensory deficits noted Sensorium / Orientation: alert Skin General Skin Exam: Negative for petechiae Lesions: no lesions Rashes: no rashes Trauma: laceration irregular and involves subcutaneous tissue; Negative for no lacerations or abrasions MDM MDM MDM Narrative Medical decision making narrative: X-rays obtained to rule out contusion versus fracture of the olecranon process. Tetanus was updated. Wound was sutured. Please read procedure note. Radiography Diagnostic Testing: Three-view x-ray of the left elbow was independently interpreted and reviewed by me at 1600. There is no fracture, foreign body. There is no anterior posterior fat pad noted. Procedures Other Procedures Procedure(s): Left elbow laceration repair 4.5 cm in length. Patient was prepped draped sterile manner. The wound was incised with #lidocaine for local infiltration. 250 cc of normal saline used for irrigation. 4 subcu stitches was placed using 5-0 Vicryl. The skin was closed using 5-0 Ethilon. A total of 13 stitches was placed. Patient tolerated procedure. Discharge Plan Triage Chief Complaint: Fall ED Provider: Beny Cuba Dx/Rx/DC Orders Clinical Impression: Laceration of elbow, left, Contusion of left elbow, initial encounter Instructions: ED Laceration Extremity Prescriptions: No Action simvastatin 40 mg tablet 40 mg PO QPM fluoxetine 40 mg capsule 40 mg PO QDAY 30 Days Qty: 30 Label Comments: calcium carbonate-vitamin D3 600 MG tablet,chewable 600 mg PO DAILY Qty: 0 Bacillus coagulans [Probiotic (B. coagulans)] 10 billion cell capsule,delayed release(DR/EC) 1 tab PO QDAY multivitamin tablet 1 tab PO QAM pantoprazole [Protonix] 40 mg tablet,delayed release (DR/EC) 40 mg PO BID Premarin 0.625 mg/gram cream 0.625 mg vaginal DAILY Rx Instructions: off 5 days; repeat cycle hydrochlorothiazide 25 mg tablet 25 mg PO DAILY Qty: 90 3RF losartan 100 mg tablet 100 mg PO DAILY Qty: 90 3RF lorazepam 1 MG tablet 1 tab PO QHS metoprolol succinate [Toprol XL] 50 mg tablet extended release 24 hr 50 mg PO DAILY Qty: 90 3RF Primary Care Provider: Sammy Aleman Referrals: Sammy Aleman MD [Primary Care Provider] - 10-14 Days if not better Activity Restrictions/Additional Instructions: 1. Recommend stitches out in 14 days not sooner. 2. Clean wound with peroxide on a Q-tip 3 times a day. Afterwards apply bacitr acin ointment. 3. Keep dressing in place for 24 hours. Disposition Disposition: Home, Self Care
--- NOTE | 2022-04-13 15:15 | RAD_ITS ---
STUDY: X-RAY - LEFT ELBOW REASON FOR EXAM: Female, 76 years old. Injury/Pain TECHNIQUE: 3 view(s) of the elbow. COMPARISON: None. FINDINGS: Normal visualized humerus, radius and ulna. Normal radiocapitellar and ulnotrochlear articulations. Soft tissue laceration overlying the posterior aspect of the elbow joint. RAD/Elbow min 3 Views IMPRESSION: Soft tissue laceration. No radiopaque foreign body is seen. Electronically Signed: William Morris MD at 15:25 EDT ,
[2022-04-13] MEDS: Diphth,Pertuss(Acell),Tet Vac 0.5 ML Vial IM (15:18)
[2022-04-13] MEDS: Lidocaine 1% (20 ml mdv) 20 ML Vial INFILT (15:18)
== END 2022-04-13 17:52 | disposition home or self-care (01) ==
PROVIDERS: Emergency Provider Emergency Medicine; PCP Internal Medicine; Visit Provider Emergency Medicine
DX: S51.012A Laceration without foreign body of left elbow, initial encounter (principal); M19.90 Unspecified osteoarthritis, unspecified site; I10 Essential (primary) hypertension; E78.5 Hyperlipidemia, unspecified; W18.00XA Striking against unspecified object with subsequent fall, initial encounter; Z87.891 Personal history of nicotine dependence; Z79.899 Other long term (current) drug therapy; Z23 Encounter for immunization
CPT/HCPCS: 12002; 73080; 90715; 99284

== ENCOUNTER → 2022-05-03 | Outpatient (CLI) | payer MEDICARE, SELFPAY ==
[2022-05-03 14:37] LABS: Anion Gap 8 (5-15); BUN 16 mg/dL (7-18); BUN/Creat Ratio 22.2 RATIO (10-20); Calcium,Total 9.1 mg/dL (8.5-10.1); Chloride 95 mmol/L (98-107); Creatinine, Serum 0.72 mg/dL (0.55-1.02); EST Glomerular Filtration Rate 83 mL/min (>60); Est Glom Filt Rate - Afr Amer 100 mL/min (>60); Glucose 85 mg/dL (74-106); Potassium 3.8 mmol/L (3.5-5.1); Sodium Level 131 mmol/L (136-145)
== END | disposition home or self-care (01) ==
LOC: LAB 11:41
PROVIDERS: PCP Internal Medicine; Referring Provider Internal Medicine Cardiovascular Disease; Visit Provider Internal Medicine Cardiovascular Disease
DX: I10 Essential (primary) hypertension (principal); E78.5 Hyperlipidemia, unspecified; R00.2 Palpitations
CPT/HCPCS: 36415; 80048

== ENCOUNTER 2022-06-03 13:28 | Emergency (ER) | payer MEDICARE, SELFPAY ==
[2022-06-03 13:30] VITALS: BP 129/104; PULSE 73; RESP 16; TEMP 36.4; O2SAT 97; BMI 25.9
--- NOTE | 2022-06-03 14:06 | EDS_ITS ---
HPI History of Present Illness Chief Complaint: General Illness Narrative Narrative: 76-year-old female presenting with mild dysuria, urinary frequency. This has been going on for about 6 days. Patient does admit to mild suprapubic pressure, nausea, chills, body aches, fatigue. She is not vomiting. Patient states that she was seen by her PCP initially and had blood work done and had an elevated white blood cell count of 14.8. She was told that her sodium was low at 122 and was told to hold her HCTZ. She was also told her chloride was low. Her kidney function was normal. Patient states that she had a urinalysis done but was not treated with antibiotics. They wanted to wait for the urine culture come back. Patient was given a urine culture today via MyChart and she has Enterococcus faecalis greater than 100,000 colony-forming units. She feels at this point she needs an antibiotic. [facility] Medical History Anxiety Arthritis Barretts esophagus Chronic back pain Dehydration Depression Essential hypertension Frequent headaches GERD (gastroesophageal reflux disease) History of gastroesophageal reflux (GERD) Hyperlipidemia IBS (irritable bowel syndrome) Insomnia Lichen planus Obsessive compulsive disorder Osteopenia Raynaud phenomenon Vitamin D deficiency Home Medications Bacillus coagulans 10 billion cell capsule,delayed release (Probiotic (B. coagulans)) 1 tab PO QDAY 09/13/17 [History Last Taken Unknown] calcium carbonate 600 mg-vitamin D3 20 mcg (800 unit) chewable tablet 600 mg PO DAILY ##0 09/13/17 [History Last Taken Unknown] fluoxetine 40 mg capsule 40 mg PO QDAY 30 days #30 caps 09/13/17 [History Last Taken Unknown] multivitamin 1 tab PO QAM 09/13/17 [History Last Taken Unknown] simvastatin 40 mg tablet 40 mg PO QPM 09/13/17 [History Last Taken Unknown] lorazepam 1 mg tablet 1 tab PO QHS 06/14/19 [History Last Taken Unknown] pantoprazole 40 mg tablet,delayed release (Protonix) 40 mg PO BID 01/28/21 [History Last Taken Unknown] conjugated estrogens 0.625 mg/gram vaginal cream (Premarin) 0.625 mg vaginal DAILY 10/05/21 [History Last Taken Unknown] metoprolol succinate 50 mg tablet,extended release 24 hr (Toprol XL) 50 mg PO DAILY #90 tabs 01/13/22 [Rx Last Taken Unknown] hydrochlorothiazide 25 mg tablet 25 mg PO DAILY #90 tabs 04/06/22 [Rx Last Taken 06/01/22] losartan 100 mg tablet 100 mg PO DAILY #90 tabs 04/06/22 [Rx Last Taken Unknown] nitrofurantoin monohydrate/macrocrystals 100 mg capsule (Macrobid) 100 mg PO Q12H 5 days #10 caps 06/03/22 [Rx Last Taken Unknown] ondansetron 4 mg disintegrating tablet 4 mg PO Q8H PRN nausea and vomiting #10 tabs 06/03/22 [Rx Last Taken Unknown] Allergy/AdvReac Type Severity Reaction Status Date / Time No Known Allergies Allergy Verified 04/13/22 14:29 Family History Father Heart disease CAD (coronary artery disease) >55 Surgical History History of arthroscopy of left knee (~04/2017) History of bladder surgery History of cataract surgery History of tonsillectomy History of total abdominal hysterectomy Status post epidural steroid injection Social History household members: spouse Smoking Status: Former smoker quit date: 09/22/90 alcohol intake: current alcohol intake frequency: a few times a week Alcohol type: wine substance use type: does not use caffeine: Yes what type of physical activity do you participate in: walking frequency: 1-2 times per week seatbelt use: always do you feel safe at home: Yes additional social history: - Richie Patient and both retired ROS ROS ED Constitutional Constitutional ED: Reports chills and fever(s) Eyes Eyes: Denies diplopia ENT ENT ED: Denies rhinorrhea or sore throat Cardiovascular Cardiovascular: Denies chest pain or palpitations Respiratory/Chest Respiratory/Chest: Denies cough or dyspnea Gastrointestinal Gastrointestinal: Reports abdominal pain and nausea; Denies constipation, diarrhea or vomiting Genitourinary Genitourinary ED: Reports dysuria and urinary frequency Musculoskeletal Musculoskeletal: Reports myalgias; Denies arthralgias Integumentary Denies abscess or Abrasions Neurologic Neurologic: Reports headache(s) Psychiatric Psychiatric: Denies anxiety or depression EXAM Physical Exam Const Vital Signs: 06/03/22 13:30 Temperature 97.6 F L Temperature Source Temporal Pulse Rate 73 Respiratory Rate 16 Blood Pressure 129/104 H Blood Pressure Mean 112 Pulse Ox 97 Oxygen Delivery Method Room Air Positive well nourished General Appearance ED: NAD HEENT Reports moist mucous membranes Eyes PERRL and EOMs intact bilaterally Chest Wall inspection of chest normal and palpation of chest normal Resp normal respiratory effort and clear to auscultation bilaterally Auscultation: Negative for rales, rhonchi or wheezes Cardio regular rate and regular rhythm GI normal to inspection, nondistended, normoactive bowel sounds Neuro oriented x3 and CN's II-XII intact bilaterally Sensorium / Orientation: alert Psych mental status grossly normal MDM MDM MDM Narrative Medical decision making narrative: Patient seen and evaluated for urinary tract infection symptoms. I reviewed her medical record and see that she does have 100,000 colony-forming units of Enterococcus faecalis. Sensitivities recommend either vancomycin, Macrobid, or ampicillin. Patient is not allergic to either of these. I do see that she had a sodium of 122. She has had low sodium in the past. She is not dizzy, lightheaded, confused. She does not have any balance issues. She states he does not want any blood work because she already has a diagnosis. She request antibiotics for her UTI. She does state that she has been holding her HCTZ and has follow-up lab work ordered for tomorrow. Given that her culture and sensitivity indicate Macrobid I will start her on this. Given the first dose in the ED. I did refill her nausea medicine. Return precautions were discussed. Impression: 1. UTI 2. Nausea 3. Hyponatremia Lab Data Attestation: I reviewed the patient's lab results. Discharge Plan Triage Chief Complaint: General Illness ED Provider: Jovanny Kirkland Dx/Rx/DC Orders Instructions: ED Cystitis Female Adult Prescriptions: New nitrofurantoin monohyd/m-cryst [Macrobid] 100 mg capsule 100 mg PO Q12H 5 Days Qty: 10 0RF Rx Instructions: must administer with a meal/food ondansetron 4 mg tablet,disintegrating 4 mg PO Q8H PRN (Reason: nausea and vomiting) Qty: 10 0RF No Action simvastatin 40 mg tablet 40 mg PO QPM fluoxetine 40 mg capsule 40 mg PO QDAY 30 Days Qty: 30 Label Comments: calcium carbonate-vitamin D3 600 MG tablet,chewable 600 mg PO DAILY Qty: 0 Bacillus coagulans [Probiotic (B. coagulans)] 10 billion cell capsule,delayed release(DR/EC) 1 tab PO QDAY multivitamin tablet 1 tab PO QAM pantoprazole [Protonix] 40 mg tablet,delayed release (DR/EC) 40 mg PO BID Premarin 0.625 mg/gram cream 0.625 mg vaginal DAILY Rx Instructions: off 5 days; repeat cycle hydrochlorothiazide 25 mg tablet 25 mg PO DAILY Qty: 90 3RF losartan 100 mg tablet 100 mg PO DAILY Qty: 90 3RF lorazepam 1 MG tablet 1 tab PO QHS metoprolol succinate [Toprol XL] 50 mg tablet extended release 24 hr 50 mg PO DAILY Qty: 90 3RF Primary Care Provider: Sammy Aleman Referrals: Sammy Aleman MD [Primary Care Provider] - Disposition Disposition: Home, Self Care
[2022-06-03] MEDS: Nitrofurantoin Macrocrystals 100 MG Capsule PO (14:18)
== END 2022-06-03 14:27 | disposition home or self-care (01) ==
PROVIDERS: Emergency Provider Student in an Organized Health Care Education/Training Program; PCP Internal Medicine; Visit Provider Student in an Organized Health Care Education/Training Program
DX: N39.0 Urinary tract infection, site not specified (principal); E87.1 Hypo-osmolality and hyponatremia; I10 Essential (primary) hypertension; E78.5 Hyperlipidemia, unspecified; R11.0 Nausea; Z87.891 Personal history of nicotine dependence; R30.0 Dysuria; R35.0 Frequency of micturition
CPT/HCPCS: 99281; 99283

== ENCOUNTER → 2022-07-30 | Outpatient (CLI) | payer MEDICARE, SELFPAY | END | disposition home or self-care (01) | PROVIDERS: PCP Internal Medicine; Visit Provider Podiatrist | DX: L97.522 Non-pressure chronic ulcer of other part of left foot with fat layer exposed (principal) | CPT/HCPCS: 87070; 87077; 87186; 87205 ==

== ENCOUNTER → 2023-07-14 | Outpatient (CLI) | payer MEDICARE, SELFPAY ==
--- NOTE | 2023-07-14 13:08 | CT_ITS ---
CT LEFT LOWER EXTREMITY WITH 3-D IMAGING CLINICAL INDICATION: KNEE PAIN TECHNIQUE: Axial CT images of the left lower extremity (including left hip, left knee, and left ankle was performed without IV contrast material. Coronal and sagittal reformats were provided. RADIATION DOSAGE (If Supplied By Facility): CTDIvol = ( 17.13 ) mGy, DLP = ( 1310.78 ) mGycm COMPARISON: No relevant prior comparison study available FINDINGS: Bones: Normal left hip joint. 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 There is degenerative arthrosis of the second and third tarsometatarsal joints. Osseous structures are normal without evidence of fracture or dislocation. No lytic or blastic osseous masses. Soft Tissues: There is chronic sigmoid diverticulosis without acute diverticulitis. There is a small knee joint effusion. The deep soft tissue structures are otherwise unremarkable. The superficial soft tissues are unremarkable without evidence of edema, hematoma, or foreign body. 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 Small left knee joint effusion. Electronically Signed: Сергей Amaya MD at 13:36 EST Reading Location ID and State: [facility] / [place] , Service support ,
== END | disposition home or self-care (01) ==
LOC: CT 12:48
PROVIDERS: PCP Internal Medicine; Referring Provider Orthopaedic Surgery; Visit Provider Orthopaedic Surgery
DX: M17.32 Unilateral post-traumatic osteoarthritis, left knee (principal)
CPT/HCPCS: 73700

== ENCOUNTER → 2023-08-08 | Outpatient (CLI) | payer MEDICARE, SELFPAY ==
--- NOTE | 2023-08-08 13:30 | RAD_ITS ---
STUDY: X-RAY CHEST REASON FOR EXAM: Female, 78 years old. Preop for knee replacement surgery TECHNIQUE: PA and lateral views of the chest. COMPARISON: 01/24/2021 FINDINGS: The lungs are clear and expanded. There is no demonstrated pleural abnormality. Normal size heart. Stable calcified eccentric lymph nodes. Normal visualized pulmonary arteries. Normal visualized aortic arch and descending thoracic aorta. Normal visualized thoracic spine. Normal visualized ribs, clavicles, and shoulders. There is no demonstrated abnormality of the visualized soft tissue structures of the upper abdomen. RAD/Chest PA and Lateral IMPRESSION: No acute pulmonary process, no interval change Electronically Signed: Petar Isaac MD at 8:46 EST ,
--- OUTSIDE RECORDS SUMMARY | 2023-08-08 13:46 | XMS RPT_ITS | CCD ---
Author Name Unknown Address [facility] [id number] [place] [address] Organization [facility] Care Team Providers Care Project Internship Name Role Phone Ash GANN, Sammy Manzanares Primary Care Provider GIBSON HUNTER Attending Unavailable , SANTANA Referring Unavailable PEREZ, SAMMY Manzanares Primary Care Unavailable , SANTANA Attending Unavailable PEREZ, SAMMY Manzanares Referring Unavailable PEREZ, SAMMY Manzanares Primary Care Unavailable PEREZ, SAMMY Manzanares Referring Unavailable PEREZ, SAMMY Manzanares Primary Care Unavailable PEREZ, SAMMY Manzanares Referring Unavailable PEREZ, SAMMY Manzanares Attending Unavailable PEREZ, SAMMY Manzanares Primary Care Unavailable PEREZ, SAMMY Manzanares Primary Care Unavailable PEREZ, SAMMY Manzanares Attending Unavailable PEREZ, SAMMY Manzanares Primary Care Unavailable RUFUS FLORES Attending Unavailable HITESH, SANTANA Attending Unavailable PEREZ, SAMMY Manzanares Primary Care Unavailable PEREZ, SAMMY Manzanares Primary Care Unavailable PEREZ, SAMMY Manzanares Attending Unavailable PEREZ, SAMMY Manzanares Primary Care Unavailable PEREZ, SAMMY Manzanares Referring Unavailable Medications Current Medications Medication Drug Class(es) Dates Sig (Normalized) Sig (Original) LORazepam 1 mg oral tablet (20 sources) Benzodiazepine Start: 05-16-2023 End: 11-12-2023 take 1 tablet by mouth once daily at bedtime LORazepam (ATIVAN) 1 mg tablet Indications: Anxiety about health Take 1 tablet by mouth daily at bedtime for 180 days. 90 tablet 1 05/16/2023 11/12/2023 Active Completed/Discontinued Medications Medication Drug Class(es) Dates Sig (Normalized) Sig (Original) amLODIPine 5 mg oral tablet (20 sources) Dihydropyridine Calcium Channel Hermes Start: 06-07-2022 take 1 tablet by mouth once daily amLODIPine (NORVASC) 5 mg tablet Take 5 mg by mouth once daily. 0 06/07/2022 Active Problems Active Problems Problem Classification Problem Date Documented Da te Episodic/Chronic Anxiety disorders (20 sources) Obsessive-compulsive disorder; Translations: [Obsessive-compulsive disorder, unspecified] Onset: 1 06-13-2017 Chronic Diseases of white blood cells (1 source) Leukocytosis; Translations: [Elevated white blood cell count, unspecified] Chronic Disorders of lipid metabolism (20 sources) Hyperlipidemia; Translations: [Hyperlipidemia, unspecified] Onset: 6 04-29-2015 Chronic Esophageal disorders (20 sources) Gastroesophageal reflux disease; Translations: [Gastro-esophageal reflux disease without esophagitis] Onset: 1 05-10-2005 Chronic Essential hypertension (20 sources) Hypertensive disorder; Translations: [Essential (primary) hypertension] Onset: 4 11-08-2013 Chronic Gastritis and duodenitis (1 source) Intestinal metaplasia of gastric mucosa; Translations: [Gastritis, unspecified, without bleeding] Episodic Genitourinary symptoms and ill-defined conditions (1 source) Increased frequency of urination; Translations: [Frequency of micturition] Episodic Immunizations and screening for infectious disease (2 sources) Needs influenza immunization; Translations: [Encounter for immunization] Episodic Malaise and fatigue (1 source) Malaise; Translations: [Other malaise] Episodic Nausea and vomiting (1 source) Nausea; Translations: [Nausea] Episodic Nutritional deficiencies (20 sources) Vitamin D deficiency; Translations: [Vitamin D deficiency, unspecified] Onset: 8 04-29-2015 Chronic Osteoarthritis (19 sources) Arthritis of left knee; Translations: [Unilateral primary osteoarthritis, left knee] Onset: 2 Chronic Other aftercare (1 source) Removal of sutures done; Translations: [Encounter for removal of sutures] Episodic Other circulatory disease (20 sources) Raynaud's phenomenon; Translations: [Raynaud's syndrome without gangrene] Onset: 4 05-06-2014 Chronic Other eye disorders (1 source) Red eye; Translations: [Other specified disorders of eye and adnexa] Episodic Other gastrointestinal disorders (20 sources) Irritable bowel syndrome; Translations: [Irritable bowel syndrome without diarrhea] 05-10-2005 Chronic Other inflammatory condition of skin (20 sources) Lichen planus; Translations: [Lichen planus, unspecified] 05-10-2005 Episodic Other lower respiratory disease (1 source) Postviral cough; Translations: [Post-viral cough syndrome] 05-06-2023 Episodic Other nervous system disorders (16 sources) Abnormal gait; Translations: [Unsteadiness on feet] Onset: 2 Episodic Urinary tract infections (1 source) Urinary tract infectious disease; Translations: [Urinary tract infection, site not specified] Episodic Past or Other Problems Problem Classification Problem Date Documented Da te Episodic/Chronic Diabetes mellitus without complication (2 sources) Impaired fasting glycemia; Translations: [Impaired fasting glucose] Onset: 12-16-2022 Episodic Fluid and electrolyte disorders (20 sources) Hypokalemia; Translations: [Hypokalemia] Onset: 09-13-2018 09-13-2018 Episodic Headache; including migraine (20 sources) Headache; Translations: [Headache] Onset: 06-21-2006 06-21-2006 Episodic Other bone disease and musculoskeletal deformities (20 sources) Osteopenia; Translations: [Other specified disorders of bone density and structure, unspecified site] Onset: 02-02-2006 06-21-2011 Episodic Other screening for suspected conditions (not mental disorders or infectious disease) (2 sources) Other specified abnormal findings of blood chemistry; Translations: [Other abnormal blood chemistry] Onset: 12-16-2022 Episodic Residual codes; unclassified (20 sources) Persistent insomnia; Translations: [Insomnia, unspecified] Onset: 11-16-2010 11-16-2010 Episodic Spondylosis; intervertebral disc disorders; other back problems (20 sources) Low back pain; Translations: [Low back pain, non-specific] Onset: 06-13-2017 06-13-2017 Episodic Results Test Name Value Interpretation Reference Range Facil ity Vital Signs Date Time Vital Sign Value Performing Clinician Don sanchez 05-06-2023 13:06-0400 Body weight 64.41 kg Rufus Flores APRN.CNP Work Phone: [facility] 05-06-2023 13:06-0400 Diastolic blood pressure 72 mm[Hg] Rufus Flores APRN.CNP Work Phone: [facility] 05-06-2023 13:06-0400 Heart rate 89 /min Rufus Rodriguezr WOODWIND REEDS CUTTER.ROUTE SERVICE MANAGER Work Phone: [facility] 05-06-2023 13:06-0400 SaO2% (BldA) [Mass fraction] 98 % Rufus Sandra WOODWIND REEDS CUTTER.ROUTE SERVICE MANAGER Work Phone: [facility] 05-06-2023 13:06-0400 Systolic blood pressure 130 mm[Hg] Rufus Rodriguezr WO[employer]WIND REEDS CUTTER.ROUTE SERVICE MANAGER Work Phone: [facility] 12-21-2022 09:55-0400 Body height 157.5 cm Santana Humphrey PA-C Work Phone: [facility] 12-21-2022 09:55-0400 Body temperature 96.69 [degF] Santana Humphrey PA-C Work Phone: [facility] 12-21-2022 09:55-0400 Body weight 63.05 kg Santana Hitesh PA-C Work Phone: [facility] 12-21-2022 09:55-0400 Diastolic blood pressure 78 mm[Hg] Santana Hitesh PA-C Work Phone: [facility] 12-21-2022 09:55-0400 Heart rate 77 /min Santana Hitesh PA-C Work Phone: [facility] 12-21-2022 09:55-0400 SaO2% (BldA) [Mass fraction] 96 % Santana Humphrey PA-C Work Phone: [facility] 12-21-2022 09:55-0400 Systolic blood pressure 118 mm[Hg] Santana Humphrey PA-C Work Phone: [facility] 12-14-2022 12:30-0400 Diastolic blood pressure 58 mm[Hg] Gibson Hunter MD Work Phone: [facility] 12-14-2022 12:30-0400 Heart rate 69 /min Gibson Hunter MD Work Phone: [facility] 12-14-2022 12:30-0400 Respiratory rate 16 /min Gibson Hunter MD Work Phone: [facility] 12-14-2022 12:30-0400 SaO2% (BldA) [Mass fraction] 95 % Gibson Hunter MD Work Phone: [facility] 12-14-2022 12:30-0400 Systolic blood pressure 118 mm[Hg] Gibson Hunter MD Work Phone: [facility] 12-14-2022 10:37-0400 Body temperature 97.2 [degF] Gibson Hunter MD Work Phone: [facility] 09-24-2022 09:18-0400 Body height 157.5 cm Santana Humphrey PA-C Work Phone: [facility] 09-24-2022 09:18-0400 Body temperature 97.59 [degF] Santana Humphrey PA-C Work Phone: [facility] 09-24-2022 09:18-0400 Body weight 63.5 kg Santana Hitesh PA-C Work Phone: [facility] 09-24-2022 09:18-0400 Diastolic blood pressure 64 mm[Hg] Santana Hitesh PA-C Work Phone: [facility] 09-24-2022 09:18-0400 Heart rate 82 /min Santana Humphrey PA-C Work Phone: [facility] 09-24-2022 09:18-0400 SaO2% (BldA) [Mass fraction] 100 % Santana Hitesh PA-C Work Phone: [facility] 09-24-2022 09:18-0400 Systolic blood pressure 130 mm[Hg] Santana Hitesh PA-C Work Phone: [facility] 09-14-2022 10:36-0500 Body weight 63.05 kg Sammy Perez MD Work Phone: [facility] 09-14-2022 10:36-0500 Diastolic blood pressure 70 mm[Hg] Sammy Perez MD Work Phone: [facility] 09-14-2022 10:36-0500 Heart rate 68 /min Sammy Perez MD Work Phone: [facility] 09-14-2022 10:36-0500 Respiratory rate 16 /min Sammy Perez MD Work Phone: [facility] 09-14-2022 10:36-0500 Systolic blood pressure 116 mm[Hg] Sammy Perez MD Work Phone: [facility] 06-11-2022 10:00-0500 Body temperature 97 [degF] Sammy Perez MD Work Phone: [facility] 06-11-2022 10:00-0500 Body weight 62.82 kg Sammy Perez MD Work Phone: [facility] 06-11-2022 10:00-0500 Diastolic blood pressure 82 mm[Hg] Sammy Perez MD Work Phone: [facility] 06-11-2022 10:00-0500 Heart rate 81 /min Sammy Perez MD Work Phone: [facility] 06-11-2022 10:00-0500 Respiratory rate 16 /min Sammy Perez MD Work Phone: [facility] 06-11-2022 10:00-0500 SaO2% (BldA) [Mass fraction] 98 % Sammy Perez MD Work Phone: [facility] 06-11-2022 10:00-0500 Systolic blood pressure 144 mm[Hg] Sammy Perez MD Work Phone: [facility] 04-29-2022 10:22-0400 Body temperature 97.2 [degF] Sammy Perez MD Work Phone: [facility] 04-29-2022 10:22-0400 Body weight 63.96 kg Sammy Perez MD Work Phone: [facility] 04-29-2022 10:22-0400 Diastolic blood pressure 72 mm[Hg] Sammy Perez MD Work Phone: [facility] 04-29-2022 10:22-0400 Heart rate 72 /min Sammy Perez MD Work Phone: [facility] 04-29-2022 10:22-0400 Respiratory rate 16 /min Sammy Perez MD Work Phone: [facility] 04-29-2022 10:22-0400 SaO2% (BldA) [Mass fraction] 96 % Sammy Perez MD Work Phone: [facility] 04-29-2022 10:22-0400 Systolic blood pressure 146 mm[Hg] Sammy Perez MD Work Phone: [facility] 03-17-2022 11:09-0400 Diastolic blood pressure 77 mm[Hg] Sammy Perez MD Work Phone: [facility] 03-17-2022 11:09-0400 Heart rate 63 /min Sammy Perez MD Work Phone: [facility] 03-17-2022 11:09-0400 Systolic blood pressure 149 mm[Hg] Sammy Perez MD Work Phone: [facility] 03-17-2022 10:55-0400 Body temperature 97.2 [degF] Sammy Perez MD Work Phone: [facility] 03-17-2022 10:55-0400 Body weight 63.5 kg Sammy Perez MD Work Phone: [facility] 03-17-2022 10:55-0400 Respiratory rate 16 /min Sammy Perez MD Work Phone: [facility] 11-02-2021 13:26-0400 Body height 156 cm Mayra Rico WOODWIND REEDS CUTTER.ROUTE SERVICE MANAGER Work Phone: [facility] 11-02-2021 13:26-0400 Body weight 63.96 kg Mayra Rico WOODWIND REEDS CUTTER.ROUTE SERVICE MANAGER Work Phone: [facility] 11-02-2021 13:26-0400 Diastolic blood pressure 62 mm[Hg] Mayra Rico WOODWIND REEDS CUTTER.ROUTE SERVICE MANAGER Work Phone: [facility] 11-02-2021 13:26-0400 Heart rate 77 /min Mayra Rico WOODWIND REEDS CUTTER.ROUTE SERVICE MANAGER Work Phone: [facility] 11-02-2021 13:26-0400 SaO2% (BldA) [Mass fraction] 97 % Mayra Rico WOODWIND REEDS CUTTER.ROUTE SERVICE MANAGER Work Phone: [facility] 11-02-2021 13:26-0400 Systolic blood pressure 130 mm[Hg] Mayra Rico WOODWIND REEDS CUTTER.ROUTE SERVICE MANAGER Work Phone: [facility] Encounters Encounter Date Encounter Type Care Provider Facility Start: 06-21-2023 End: 06-21-2023 ambulatory SAMMY PEREZ Facility:[facility] Start: 05-30-2023 Telephone encounter Sammy lepe MD Work Phone: [facility] Procedures Date Procedure Procedure Detail Performing Clinician Start: 12-14-2022 Level iv surg pathology gross&microscopic exam Gibson Hunter MD Work Phone: Start: 12-14-2022 Esophagogastroduodenoscopy transoral diagnostic Santana Proctor PA-C Work Phone: Start: 03-17-2022 INFLUENZA SEASONAL QUADRIVALENT HIGH DOSE AGE 65+ Sammy Perez MD Work Phone: Start: 10-20-2021 Dxa bone density study 1/> sites axial skel Sammy Perez MD Work Phone: Start: 09-16-2021 Adult depression screening assessment Gissel Shea PT Work Phone: Plan of Treatment Date Care Activity Detail Author Start: 04-13-2032 Urine microalbumin profile [facility] Start: 08-30-2027 Urine microalbumin profile DTAP,TDAP,TD (2 - Td or Tdap) [facility] Start: 12-16-2025 DIABETES SCREEN DIABETES SCREEN [facility] Start: 12-16-2025 Diabetes Screening Diabetes Screening [facility] Start: 09-16-2025 DIABETES SCREEN DIABETES SCREEN [facility] Start: 06-11-2025 DIABETES SCREEN DIABETES SCREEN [facility] Start: 06-07-2025 DIABETES SCREEN DIABETES SCREEN [facility] Start: 06-01-2025 DIABETES SCREEN DIABETES SCREEN [facility] Start: 09-17-2024 DIABETES SCREEN DIABETES SCREEN [facility] Start: 05-06-2024 Annual PCP Team Chronic Disease Visit Annual PCP Team Chronic Disease Visit [facility] Start: 12-22-2023 BP CONTROLLED (<130/80) BP CONTROLLED (<130/80) [facility] Start: 12-18-2023 ANNUAL PCP TEAM CHRONIC DISEASE VISIT ANNUAL PCP TEAM CHRONIC DISEASE VISIT [facility] Start: 09-15-2023 ANNUAL PCP TEAM CHRONIC DISEASE VISIT ANNUAL PCP TEAM CHRONIC DISEASE VISIT [facility] Start: 09-15-2023 BP CONTROLLED (<130/80) BP CONTROLLED (<130/80) [facility] Start: 08-01-2023 Covid-19 Vaccine (6 - Moderna series) Covid-19 Vaccine (6 - Moderna series) [facility] Start: 06-11-2023 ANNUAL PCP TEAM CHRONIC DISEASE VISIT ANNUAL PCP TEAM CHRONIC DISEASE VISIT [facility] Start: 06-02-2023 ANNUAL PCP TEAM CHRONIC DISEASE VISIT ANNUAL PCP TEAM CHRONIC DISEASE VISIT [facility] Start: 06-01-2023 ANNUAL PCP TEAM CHRONIC DISEASE VISIT ANNUAL PCP TEAM CHRONIC DISEASE VISIT [facility] Start: 04-29-2023 ANNUAL PCP TEAM CHRONIC DISEASE VISIT ANNUAL PCP TEAM CHRONIC DISEASE VISIT [facility] Start: 03-17-2023 ANNUAL PCP TEAM CHRONIC DISEASE VISIT ANNUAL PCP TEAM CHRONIC DISEASE VISIT [facility] Start: 03-11-2023 Influenza vaccination [facility] Start: 12-13-2022 End: 02-12-2023 Comprehensive metabolic 2000 panel - Serum or Plasma COMP METABOLIC PANEL Lab Routine Elevated liver function tests Expected: 12/13/2022, Expires: 02/12/2023 [facility] Work Phone: Immunizations Immunization Date Immunization Notes Care Provider Fa cility 04-01-2023 COVID-19 vaccine, ag e 12+ yr, season (MODERNA) Sammy Perez MD Work Phone: [facility] Work Phone: 04-13-2022 tetanus toxoid, reduced diphtheria toxoid, and acellular pertussis vaccine, adsorbed Sammy Perez MD Work Phone: [facility] 03-17-2022 influenza, high-dose , quadrivalent vaccine (FLUZONE HIGH DOSE QUADRIVALENT) Sammy Perez MD Work Phone: [facility] Work Phone: 03-17-2022 pneumococcal (PCV20) vaccine, 20 valent (PREVNAR 20) Sammy Perez MD Work Phone: [facility] Work Phone: 03-17-2022 pneumococcal Conjugate, unspecified formulation Sammy Perez MD Work Phone: [facility] Work Phone: 03-17-2022 influenza virus vaccine, unspecified formulation Sammy Perez MD Work Phone: [facility] 03-19-2021 influenza, high dose seasonal, preservative-free Gissel Shea PT Work Phone: [facility] 03-18-2021 influenza, high-dose , quadrivalent vaccine (FLUZONE HIGH DOSE QUADRIVALENT) Gissel Shea PT Work Phone: [facility] Work Phone: 09-01-2020 COVID-19 vaccine, fu ll dose (MODERNA) Gissel Shea PT Work Phone: [facility] Work Phone: 08-04-2020 COVID-19 vaccine, fu ll dose (MODERNA) Gissel Shea PT Work Phone: [facility] Work Phone: 03-07-2020 influenza, high dose seasonal, preservative-free Gissel Shea PT Work Phone: [facility] Work Phone: 04-12-2019 influenza, high dose seasonal, preservative-free Gissel Shea PT Work Phone: [facility] Work Phone: 05-27-2018 zoster vaccine recombinant Gissel Shea PT Work Phone: [facility] Work Phone: 04-17-2018 influenza, high dose seasonal, preservative-free Gissel Shea PT Work Phone: [facility] Work Phone: 08-30-2017 tetanus toxoid, reduced diphtheria toxoid, and acellular pertussis vaccine, adsorbed Gissel Shea PT Work Phone: [facility] Work Phone: 08-30-2017 zoster vaccine recombinant Gissel Shea PT Work Phone: [facility] Work Phone: 03-26-2017 influenza, seasonal, injectable Gissel Shea PT Work Phone: [facility] 04-16-2016 influenza, high dose seasonal, preservative-free Gissel Shea PT Work Phone: [facility] 03-18-2015 influenza, seasonal, injectable Gissel Shea PT Work Phone: [facility] Work Phone: 10-28-2014 pneumococcal conjuga te vaccine, 13 valent Gissel Shea PT Work Phone: [facility] 04-10-2014 influenza, high dose seasonal, preservative-free Gissel Shea PT Work Phone: [facility] Work Phone: 04-05-2013 influenza virus vaccine, unspecified formulation Gissel Shea PT Work Phone: [facility] 04-07-2012 influenza virus vaccine, unspecified formulation Gissel Shea PT Work Phone: [facility] Work Phone: 04-13-2011 influenza virus vaccine, unspecified formulation Gissel Shea PT Work Phone: [facility] Work Phone: 04-14-2010 influenza virus vaccine, unspecified formulation Gissel Shea PT Work Phone: [facility] Work Phone: 08-18-2009 zoster vaccine, live Gissel Ga rrison PT Work Phone: [facility] Work Phone: 06-24-2009 novel [id number], preservative-free, injectable Gissel Shea PT Work Phone: [facility] Work Phone: 04-10-2009 pneumococcal conjuga te vaccine, 7 valent Gissel Shea PT Work Phone: [facility] 03-31-2009 influenza virus vaccine, unspecified formulation Gissel Shea PT Work Phone: [facility] Work Phone: 07-17-2007 tetanus and diphther ia toxoids, adsorbed, preservative free, for adult use (2 Lf of tetanus toxoid and 2 Lf of diphtheria toxoid) Gissel Shea PT Work Phone: [facility] Work Phone: 05-10-2007 influenza virus vaccine, unspecified formulation Gissel Shea PT Work Phone: [facility] Work Phone: 05-11-2005 influenza virus vaccine, unspecified formulation Gissel Shea PT Work Phone: [facility] Work Phone: Payers Date Payer Category Payer Medicare [employer] MEDICARE [employer] MEDICARE PPO [id number] 2011-Present [phone] [address] [address] [place] [address] PPO [id number] 2011 Medicare [id number] 2011 Medicare [id number] Social History Date Type Detail Facility Start: 04-29-2022 Tobacco smoking stat [facility] Ex-smoker [facility] End: 09-22-1990 History of tobacco use Current smoker [facility] Work Phone: Start: 09-10-2021 End: 05-06-2023 Alcohol intake Ex-drinker (finding) [facility] Start: 09-10-2021 End: 12-17-2022 Alcohol intake [facility] Start: 09-16-2021 End: 06-01-2022 History SDOH Alcohol Frequency 5 [facility] Start: 09-16-2021 End: 06-01-2022 History SDOH Alcohol Std Drinks 1 [facility] Start: 09-16-2021 End: 06-01-2022 History SDOH Social Connections Get Together 3 [facility] Start: 09-16-2021 End: 06-01-2022 History SDOH Stress 2 [facility] Start: 09-16-2021 End: 06-01-2022 History SDOH Financial 4 [facility] Start: 08-08-2019 Education 17 [facility] Start: 1945 Sex Assigned At Female [facility] Start: 08-17-2021 End: 06-11-2022 Exposure to SARS-CoV-2 (event) Not sure [facility] End: 09-22-1990 History of tobacco use Cigarette Smoker [facility] Work Phone: Start: 03-15-2022 End: 06-01-2022 History SDOH Social Connections [facility] 98 [facility] Start: 04-29-2022 Tobacco use and exposure Smokeless tobacco non-user [facility] Start: 06-01-2022 End: 12-17-2022 Social connection and isolation panel [facility] How often do you att end rastafarian or quaker services? Patient refused [facility] Are you now , , , , never or living with a partner? [facility] How often to you hav e a drink containing alcohol? 2-3 time sa week [facility] How many standard drinks containing alcohol do you have on a typical day? 1 or 2 [facility] How often do you hav e 6 or more drinks on 1 occasion? Never [facility] Do you feel stress - tense, restless, nervous, or anxious, or unable to sleep at night because your mind is troubled all the time - these days [OSQ] To some extent [facility] (I/We) worried wheth er (my/our) food would run out before (I/we) got money to buy more. Never true [facility] In the past 12 month s, was there a time when you were not able to pay the mortgage or rent on time? No [facility] Start: 01-08-2019 Gender identity Identifies as female gender (finding) [facility] Start: 01-08-2019 Sexual orientation Heterosexual (bhavya rosario) [facility] Clinical Notes 04-24-2015 to 06-21-2023 Telephone Encounter - Edinson Barrios RN - 05/30/2023 1:16 PM ESTTelephone Encounter - Emily Crews APRN.CNP - 05/30/2023 12:16 PM ESTTelephone Encounter - Susan Carranza - 05/30/2023 11:21 AM EST Note Date & Type Note Facility 06-21-2023 Note HNO ID: [id number] Author: Sammy Perez MD Service: ? Author Type: Physician Type: Progress Notes Filed: 06/21/2023 9:39 AM Note Text: This note was created using [employer]. Subjective Petra Haro is a 77 year old female. She was doing well and conditions were stable. She saw cardiology, and will see Dr. Dominguez. Knee replacement was going to be discussed. Review of Systems Constitutional: Negative for fatigue. Respiratory: Negative for shortness of breath. Cardiovascular: Negative for chest pain. ACTIVE PROBLEM LIST Lichen Planus Osteopenia Obsessive-Compulsive Disorder Irritable Bowel Syndrome Esophageal Reflux Hyperlipemia Headache(784.0) Vitamin D Deficiency Insomnia, Persistent Chappell Esophagus Htn (Hypertension) Raynaud Phenomenon Low Back Pain, Non-Specific Hypokalemia Anxiety About Health Arthritis of Left Knee Current Outpatient Medications Medication Sig LORazepam (ATIVAN) 1 mg tablet Take 1 tablet by mouth daily at bedtime for 180 days. simvastatin (ZOCOR) 40 mg tablet Take 1 tablet by mouth daily at bedtime. FLUoxetine (PROZAC) 40 mg capsule Take 1 capsule by mouth once daily. OTC PRODUCT Take 2 capsules by mouth once daily. Florstor pantoprazole DR (PROTONIX) 40 mg tablet Take 1 tablet by mouth twice daily. amLODIPine (NORVASC) 5 mg tablet Take 5 mg by mouth once daily. losartan (COZAAR) 100 mg tablet Take 1 tablet by mouth once daily. Per Dr. Carter. metoprolol succinate ER (TOPROL XL) 50 mg 24 hr tablet Take 50 mg by mouth once daily. calcium carbonate-vitamin D3 600 mg (1,500 mg)-800 unit chew Take 1 tablet by mouth twice daily. Lactobacillus acidophilus 10 billion cell cap Take 1 capsule by mouth as needed. MULTIVITAMIN TAB Take one(1) tablet daily. No current facility-administered medications for this visit. Objective BP 128/68 (BP Site: Left Arm, BP Position: Sitting, BP Cuff Size: Large Adult) Pulse 64 Resp 16 Wt 63 kg (139 lb) BMI 25.42 kg/m? Physical Exam Constitutional: Appearance: Normal appearance. Cardiovascular: Rate and Rhythm: Normal rate and regular rhythm. Pulmonary: Breath sounds: Normal breath sounds. Musculoskeletal: Right lower leg: No edema. Left lower leg: No edema. Neurological: Mental Status: She is alert. Assessment and Plan 1. Primary hypertension - ICD9: 401.9, ICD10: I10 (primary diagnosis) - Controlled - CBC 2. Hyperlipidemia, unspecified hyperlipidemia type - ICD9: 272.4, ICD10: E78.5 - Controlled - Continue current medications - COMP METABOLIC PANEL - LIPID PANEL BASIC 3. Arthritis of left knee - ICD9: 716.96, ICD10: M17.12 Return sooner if preoperative exam needed from primary care. Sammy Perez MD [facility] 05-30-2023 Miscellaneous Notes Phoned patient and given provider's message below with verbalized understanding. Patient is not due for routine labs Emily Crews APRN.LILA Pt wondering if she needs labs drawn before 6 month follow up on 06/21, please review and advise. Susan Carranza May 30, 2023 11:22 AM documented in this encounter [facility] 05-06-2023 Note HNO ID: [id number] Author: Rufus Flores APRN.ROUTE SERVICE MANAGER Service: ? Author Type: Nurse Practitioner Type: Progress Notes Filed: 05/06/2023 2:25 PM Note Text: SUBJECTIVE Petra Haro is a 77 year old female here today for a check up on her medical problems. Chief Complaint Patient presents with: Cough: started about 2 weeks with a sore throat at that time. Treated with Delsym. Moist productive at times with clear to yellow sputum HPI Petra Haro is a 77 year old female. Cough almost 3 weeks long. Started with cold symptoms, sore throat. Cough is not improving but other symptom did improve. NO shortness of breath or trouble breathing. Cough is only a little productive. Some wheezing. History of smoking. No sick contacts that she knows of, Over the counters not helpful. No chest tightness or chest pain. Her medications were reviewed today and her list is now up to date. Medications Current Outpatient Medications Medication Sig simvastatin (ZOCOR) 40 mg tablet Take 1 tablet by mouth daily at bedtime. FLUoxetine (PROZAC) 40 mg capsule Take 1 capsule by mouth once daily. OTC PRODUCT Take 2 capsules by mouth once daily. Florstor pantoprazole DR (PROTONIX) 40 mg tablet Take 1 tablet by mouth twice daily. LORazepam (ATIVAN) 1 mg tablet Take 1 tablet by mouth daily at bedtime for 180 days. amLODIPine (NORVASC) 5 mg tablet Take 5 mg by mouth once daily. losartan (COZAAR) 100 mg tablet Take 1 tablet by mouth once daily. Per Dr. Carter. metoprolol succinate ER (TOPROL XL) 50 mg 24 hr tablet Take 50 mg by mouth once daily. calcium carbonate-vitamin D3 600 mg (1,500 mg)-800 unit chew Take 1 tablet by mouth twice daily. Lactobacillus acidophilus 10 billion cell cap Take 1 capsule by mouth as needed. MULTIVITAMIN TAB Take one(1) tablet daily. benzonatate (TESSALON PERLE) 100 mg capsule Take 2 capsules by mouth three times a day as needed for cough. methylPREDNISolone (MEDROL, ARELI,) 4 mg Dose-Pack As Instructed per package, take with food No current facility-administered medications for this visit. ALLERGIES No Known Allergies ACTIVE PROBLEM LIST Arthritis of Left Knee - 03/17/2022 Comment: Dr. Laura Dominguez Anxiety About Health - 09/11/2020 Hypokalemia - 09/13/2018 Low Back Pain, Non-Specific - 06/13/2017 Comment: Injections as needed, Dr. Skylar Martinez. Raynaud Phenomenon - 05/06/2014 Htn (Hypertension) - 11/08/2013 Chappell Esophagus - 02/10/2011 Insomnia, Persistent - 11/16/2010 Vitamin D Deficiency - 07/12/2007 Headache(784.0) - 06/21/2006 Comment: chronic daily headaches. Osteopenia - 02/02/2006 Hyperlipemia - 08/13/2005 Lichen Planus Obsessive-Compulsive Disorder Irritable Bowel Syndrome Esophageal Reflux Social History Tobacco Use Smoking status: Former Types: Cigarettes Quit date: 09/22/1990 Years since quittin.6 Smokeless tobacco: Never Vaping Use Vaping Use: Never used Substance Use Topics Alcohol use: Not Currently Alcohol/week: 17.5 standard drinks of alcohol Types: 7 Glasses of Wine (5oz) per week Comment: occasionally wine Drug use: No Review of Systems Respiratory: Positive for cough. Negative for apnea, choking, chest tightness, shortness of breath and stridor. Cardiovascular: Negative. OBJECTIVE BP 130/72 Pulse 89 Wt 142 lb (64.4kg) SpO2 98% Physical Exam Vitals and nursing note reviewed. Constitutional: General: She is awake. She is not in acute distress. Appearance: Normal appearance. She is well-developed and well-groomed. She is not ill-appearing, toxic-appearing or diaphoretic. HENT: Head: Normocephalic. Right Ear: External ear normal. Left Ear: External ear normal. Nose: Nose normal. Eyes: General: Vision grossly intact. Conjunctiva/sclera: Conjunctivae normal. Pupils: Pupils are equal, round, and reactive to light. Neck: Vascular: No JVD. Trachea: Trachea normal. Cardiovascular: Rate and Rhythm: Normal rate and regular rhythm. Pulses: Normal pulses. Heart sounds: Normal heart sounds. No murmur heard. Pulmonary: Effort: Pulmonary effort is normal. No accessory muscle usage, prolonged expiration or respiratory distress. Breath sounds: Normal breath sounds. Musculoskeletal: Cervical back: Neck supple. Skin: General: Skin is warm and dry. Capillary Refill: Capillary refill takes less than 2 seconds. Neurological: General: No focal deficit present. Mental Status: She is alert and oriented to person, place, and time. Mental status is at baseline. Psychiatric: Attention and Perception: Attention and perception normal. Mood and Affect: Mood and affect normal. Speech: Speech normal. Behavior: Behavior normal. Behavior is cooperative. Thought Content: Thought content normal. Cognition and Memory: Cognition and memory normal. Judgment: Judgment normal. ASSESSMENT/PLAN: 1. Post-viral cough syndrome - ICD9: 786.2, ICD10: R05.8 - BENZONATATE 100 (more content not included)... [facility] 05-06-2023 History of Present illness Narrative SUBJECTIVE Petra Haro is a 77 year old female here today for a check up on her medical problems. Chief Complaint Patient presents with: Cough: started about 2 weeks with a sore throat at that time. Treated with Delsym. Moist productive at times with clear to yellow sputum HPI Petra Haro is a 77 year old female. Cough almost 3 weeks long. Started with cold symptoms, sore throat. Cough is not improving but other symptom did improve. NO shortness of breath or trouble breathing. Cough is only a little productive. Some wheezing. History of smoking. No sick contacts that she knows of, Over the counters not helpful. No chest tightness or chest pain. Her medications were reviewed today and her list is now up to date. Medications Current Outpatient Medications Medication Sig simvastatin (ZOCOR) 40 mg tablet Take 1 tablet by mouth daily at bedtime. FLUoxetine (PROZAC) 40 mg capsule Take 1 capsule by mouth once daily. OTC PRODUCT Take 2 capsules by mouth once daily. Florstor pantoprazole DR (PROTONIX) 40 mg tablet Take 1 tablet by mouth twice daily. LORazepam (ATIVAN) 1 mg tablet Take 1 tablet by mouth daily at bedtime for 180 days. amLODIPine (NORVASC) 5 mg tablet Take 5 mg by mouth once daily. losartan (COZAAR) 100 mg tablet Take 1 tablet by mouth once daily. Per Dr. Carter. metoprolol succinate ER (TOPROL XL) 50 mg 24 hr tablet Take 50 mg by mouth once daily. calcium carbonate-vitamin D3 600 mg (1,500 mg)-800 unit chew Take 1 tablet by mouth twice daily. Lactobacillus acidophilus 10 billion cell cap Take 1 capsule by mouth as needed. MULTIVITAMIN TAB Take one(1) tablet daily. benzonatate (TESSALON PERLE) 100 mg capsule Take 2 capsules by mouth three times a day as needed for cough. methylPREDNISolone (MEDROL, ARELI,) 4 mg Dose-Pack As Instructed per package, take with food No current facility-administered medications for this visit. ALLERGIES No Known Allergies ACTIVE PROBLEM LIST Arthritis of Left Knee - 03/17/2022 Comment: Dr. Laura Dominguez Anxiety About Health - 09/11/2020 Hypokalemia - 09/13/2018 Low Back Pain, Non-Specific - 06/13/2017 Comment: Injections as needed, Dr. Skylar Martinez. Raynaud Phenomenon - 05/06/2014 Htn (Hypertension) - 11/08/2013 Chappell Esophagus - 02/10/2011 Insomnia, Persistent - 11/16/2010 Vitamin D Deficiency - 07/12/2007 Headache(784.0) - 06/21/2006 Comment: chronic daily headaches. Osteopenia - 02/02/2006 Hyperlipemia - 08/13/2005 Lichen Planus Obsessive-Compulsive Disorder Irritable Bowel Syndrome Esophageal Reflux Social History Tobacco Use Smoking status: Former Types: Cigarettes Quit date: 09/22/1990 Years since quittin.6 Smokeless tobacco: Never Vaping Use Vaping Use: Never used Substance Use Topics Alcohol use: Not Currently Alcohol/week: 17.5 standard drinks of alcohol Types: 7 Glasses of Wine (5oz) per week Comment: occasionally wine Drug use: No Review of Systems Respiratory: Positive for cough. Negative for apnea, choking, chest tightness, shortness of breath and stridor. Cardiovascular: Negative. OBJECTIVE BP 130/72 Pulse 89 Wt 142 lb (64.4kg) SpO2 98% Physical Exam Vitals and nursing note reviewed. Constitutional: General: She is awake. She is not in acute distress. Appearance: Normal appearance. She is well-developed and well-groomed. She is not ill-appearing, toxic-appearing or diaphoretic. HENT: Head: Normocephalic. Right Ear: External ear normal. Left Ear: External ear normal. Nose: Nose normal. Eyes: General: Vision grossly intact. Conjunctiva/sclera: Conjunctivae normal. Pupils: Pupils are equal, round, and reactive to light. Neck: Vascular: No JVD. Trachea: Trachea normal. Cardiovascular: Rate and Rhythm: Normal rate and regular rhythm. Pulses: Normal pulses. Heart sounds: Normal heart sounds. No murmur heard. Pulmonary: Effort: Pulmonary effort is normal. No accessory muscle usage, prolonged expiration or respiratory distress. Breath sounds: Normal breath sounds. Musculoskeletal: Cervical back: Neck supple. Skin: General: Skin is warm and dry. Capillary Refill: Capillary refill takes less than 2 seconds. Neurological: General: No focal deficit present. Mental Status: She is alert and oriented to person, place, and time. Mental status is at baseline. Psychiatric: Attention and Perception: Attention and perception normal. Mood and Affect: Mood and affect normal. Speech: Speech normal. Behavior: Behavior normal. Behavior is cooperative. Thought Content: Thought content normal. Cognition and Memory: Cognition and memory normal. Judgment: Judgment normal. ASSESSMENT/PLAN: 1. Post-viral cough syndrome - ICD9: 786.2, ICD10: R05.8 - BENZONATATE 100 MG CAPSULE - METHYLPREDNISOLONE 4 MG TABLETS IN A DOSE PACK Portions of this note have been entered by ancillary staff. I have reviewed and when necessary edited, so that they are an adequate record of my encounter with this patient Please note that parts of this document were created using voice recognition software and therefore may contain grammatical errors. Patient verbalizes understanding of instructions from today's visit and in agreement with treatment plan. Questions answered. Agrees to call the office if questions, concerns of issues with acute symptoms not improving or if they worsen. See diagnoses and orders for additional plan(s). Allergies and medications were reviewed, list was updated, and refills given if needed. Past medical, surgical, social, and family history reviewed and updated as appropriate. Encouraged proper diet & exercise as well as compliance with taking medications. Age-appropriate health preventative measures were discussed. Return if symptoms worsen or fail to improve, for Keep next scheduled appointment.. Rufus Flores APRN-LILA documented in this encounter [facility] 04-04-2023 Miscellaneous Notes The following approved medication requests have been transmitted electronically. Requested Prescriptions Signed Prescriptions Disp Refills simvastatin (ZOCOR) 40 mg tablet 90 tablet 3 Sig: Take 1 tablet by mouth daily at bedtime. Authorizing Provider: ROBYN ROBERTS MD Patient has been identified by name and date of : Yes Last office visit in this department: 12/17/2022 RX INSTRUCTIONS: Patient aware RX will be sent to pharmacy. No need to notify patient. Patient phones requesting refills as follows: Requested Prescriptions Pending Prescriptions Disp Refills simvastatin (ZOCOR) 40 mg tablet 90 tablet 3 Sig: Take 1 tablet by mouth daily at bedtime. Please review and advise. Ana Altamirano documented in this encounter [facility] 03-15-2023 Miscellaneous Notes Patient has been identified by name and date of : Yes, Patient phones for refill(s): Requested Prescriptions Pending Prescriptions Disp Refills FLUoxetine (PROZAC) 40 mg capsule 90 capsule 3 Sig: Take 1 capsule by mouth once daily. Date of last office visit in primary care: 12/17/2022 6 month follow-up: 06/21/2023 Last 2 Encounter Wt Readings: Date: Wt: 12/21/2022 63 kg (139 lb) 12/17/2022 61.7 kg (136 lb) Previous labs/tests for medication: Not applicable Please advise. Thank you. Pippa Love LPN Patient has been identified by name and date of : Yes Last office visit in this department: 12/17/2022 RX INSTRUCTIONS: Patient aware RX will be sent to pharmacy. No need to notify patient. Patient phones requesting refills as follows: Requested Prescriptions Pending Prescriptions Disp Refills FLUoxetine (PROZAC) 40 mg capsule 90 capsule 3 Sig: Take 1 capsule by mouth once daily. Please review and advise. Gaby Richards documented in this encounter [facility] 12-21-2022 Note HNO ID: [id number] Author: Santana Proctor PA-C Service: ? Author Type: Physician Vocational Technical Education Teacher Type: Progress Notes Filed: 12/27/2022 1:50 PM Note Text: FOLLOW UP VISIT - ENDOSCOPY NAME: Petra Marquez Meadow [facility] NO.: [id number] DATE OF SERVICE: 12/21/2022 : 1945 REFERRING PHYSICIAN: Sammy Perez MD Petra is a patient I am following for history of Chappell's esophagus and need for surveillance EGD. Dr. Hunter performed upper endoscopy on 12/14/22. The patient was found to have gastritis, small hiatal hernia, esophageal mucosal changes consistent with short-segment Chappell's. Pathology demonstrated: FINAL DIAGNOSIS A. Antrum, biopsy: -Antral mucosa with chronic inactive gastritis -Negative for Helicobacter pylori -Zone of goblet cells (intestinal metaplasia versus pyloric transitional zone) B. Distal esophagus, biopsy: -Squamo-gastric junctional mucosa with reactive epithelial changes -Negative for intestinal metaplasia C. Mid esophagus, biopsy: -Squamous mucosa with no diagnostic alteration -No prominence of intraepithelial eosinophils Diagnosis Comment Given the background of chronic gastritis a Helicobacter pylori immunostain was performed on block A1 and is negative for Helicobacter pylori organisms. The patient notes no complaints since the procedure. VITALS: Blood pressure 118/78, pulse 77, temperature (!) 35.9 ?C (96.7 ?F), height 157.5 cm (5' 2 ), weight 63 kg (139 lb), SpO2 96 %. General: patient is alert, cooperative, pleasant and in no acute distress On examination, the abdomen is benign. Assessment IMPRESSION: short-segment Chappell's without dysplasia, gastritis with IM PLAN: The operative findings and pathology report were reviewed with the patient, and the patient has had the opportunity to ask questions and have questions answered. If the patient notes any problems or changes in bowel function, the patient should contact me immediately. Otherwise I recommend follow up endoscopy in 3 years for surveillance. Continue PPI long-term Patient verbalized understanding of all above and agreed with the plan Diagnoses: (K22.70) Chappell's esophagus without dysplasia (primary encounter diagnosis) (K29.70, K31.A0) Gastritis with intestinal metaplasia of stomach I spent a total of 25 minutes on the date of the service which included preparing to see the patient, [id number] patient care, completing clinical documentation, obtaining and/or reviewing separately obtained history, counseling and educating the patient/family/caregiver, independently interpreting results (not separately reported), and communicating results to the patient/family/caregiver. Santana Proctor PA-C [facility] 12-21-2022 Instructions Santana Proctor PA-C - 12/21/2022 10:08 AM EDT -Repeat EGD in 3 years for surveillance of Chappell's and stomach intestinal metaplasia documented in this encounter [facility] 12-21-2022 History of Present illness Narrative FOLLOW UP VISIT - ENDOSCOPY NAME: Petra Haro [facility] NO.: [id number] DATE OF SERVICE: 12/21/2022 : 1945 REFERRING PHYSICIAN: Sammy Perez MD Petra is a patient I am following for history of Chappell's esophagus and need for surveillance EGD. Dr. Hunter performed upper endoscopy on 12/14/22. The patient was found to have gastritis, small hiatal hernia, esophageal mucosal changes consistent with short-segment Chappell's. Pathology demonstrated: FINAL DIAGNOSIS A. Antrum, biopsy: -Antral mucosa with chronic inactive gastritis -Negative for Helicobacter pylori -Zone of goblet cells (intestinal metaplasia versus pyloric transitional zone) B. Distal esophagus, biopsy: -Squamo-gastric junctional mucosa with reactive epithelial changes -Negative for intestinal metaplasia C. Mid esophagus, biopsy: -Squamous mucosa with no diagnostic alteration -No prominence of intraepithelial eosinophils Diagnosis Comment Given the background of chronic gastritis a Helicobacter pylori immunostain was performed on block A1 and is negative for Helicobacter pylori organisms. The patient notes no complaints since the procedure. VITALS: Blood pressure 118/78, pulse 77, temperature (!) 35.9 C (96.7 F), height 157.5 cm (5' 2 ), weight 63 kg (139 lb), SpO2 96 %. General: patient is alert, cooperative, pleasant and in no acute distress On examination, the abdomen is benign. Assessment IMPRESSION: short-segment Chappell's without dysplasia, gastritis with IM PLAN: The operative findings and pathology report were reviewed with the patient, and the patient has had the opportunity to ask questions and have questions answered. If the patient notes any problems or changes in bowel function, the patient should contact me immediately. Otherwise I recommend follow up endoscopy in 3 years for surveillance. Continue PPI long-term Patient verbalized understanding of all above and agreed with the plan Diagnoses: (K22.70) Chappell's esophagus without dysplasia (primary encounter diagnosis) (K29.70, K31.A0) Gastritis with intestinal metaplasia of stomach I spent a total of 25 minutes on the date of the service which included preparing to see the patient, [id number] patient care, completing clinical documentation, obtaining and/or reviewing separately obtained history, counseling and educating the patient/family/caregiver, independently interpreting results (not separately reported), and communicating results to the patient/family/caregiver. Santana Proctor PA-C documented in this encounter [facility] 12-17-2022 Note HNO ID: [id number] Author: Sammy Perez MD Service: ? Author Type: Physician Type: Progress Notes Filed: 12/18/2022 1:44 PM Note Text: This note was created using [employer]. Subjective Petra Haro is a 77 year old female. She was doing well. Hypertension was controlled. EGD was just done and pathology was negative for Chappell's. Hyperlipidemia and anxiety was controlled. Review of Systems Constitutional: Negative. Respiratory: Negative for chest tightness and shortness of breath. Cardiovascular: Negative for chest pain, palpitations and leg swelling. Gastrointestinal: Negative for abdominal pain. Psychiatric/Behavioral: Negative for dysphoric mood. ACTIVE PROBLEM LIST Lichen Planus Osteopenia Obsessive-Compulsive Disorder Irritable Bowel Syndrome Esophageal Reflux Hyperlipemia Headache(784.0) Vitamin D Deficiency Insomnia, Persistent Chappell Esophagus Htn (Hypertension) Raynaud Phenomenon Low Back Pain, Non-Specific Hypokalemia Anxiety About Health Arthritis of Left Knee Current Outpatient Medications Medication Sig OTC PRODUCT Take 2 capsules by mouth once daily. Florstor pantoprazole DR (PROTONIX) 40 mg tablet Take 1 tablet by mouth twice daily. LORazepam (ATIVAN) 1 mg tablet Take 1 tablet by mouth daily at bedtime for 180 days. amLODIPine (NORVASC) 5 mg tablet Take 5 mg by mouth once daily. losartan (COZAAR) 100 mg tablet Take 1 tablet by mouth once daily. Per Dr. Carter. FLUoxetine (PROZAC) 40 mg capsule Take 1 capsule by mouth once daily. simvastatin (ZOCOR) 40 mg tablet Take 1 tablet by mouth daily at bedtime. metoprolol succinate ER (TOPROL XL) 50 mg 24 hr tablet Take 50 mg by mouth once daily. calcium carbonate-vitamin D3 600 mg (1,500 mg)-800 unit chew Take 1 tablet by mouth twice daily. Lactobacillus acidophilus 10 billion cell cap Take 1 capsule by mouth as needed. MULTIVITAMIN TAB Take one(1) tablet daily. No current facility-administered medications for this visit. Objective BP 126/72 (BP Site: Left Arm, BP Position: Sitting, BP Cuff Size: Regular Adult) Pulse 66 Resp 16 Ht 153.7 cm (5' 0.5 ) Wt 61.7 kg (136 lb) BMI 26.12 kg/m? Physical Exam Constitutional: Appearance: She is not ill-appearing. Cardiovascular: Heart sounds: Normal heart sounds. Pulmonary: Breath sounds: Normal breath sounds. Musculoskeletal: Right lower leg: No edema. Left lower leg: No edema. Neurological: Mental Status: She is alert. Component Latest Ref Rng AND Units 12/16/2022 Protein, Total 6.3 - 8.0 g/dL 5.6 (L) Albumin 3.9 - 4.9 g/dL 3.9 Calcium 8.5 - 10.2 mg/dL 9.0 Bilirubin, Total 0.2 - 1.3 mg/dL 0.7 Alkaline Phosphatase 34 - 123 U/L 110 AST 13 - 35 U/L 18 ALT 7 - 38 U/L 16 Glucose 74 - 99 mg/dL 98 BUN 7 - 21 mg/dL 15 Creatinine 0.58 - 0.96 mg/dL 0.88 Sodium 136 - 144 mmol/L 135 (L) Potassium 3.7 - 5.1 mmol/L 4.0 Chloride 97 - 105 mmol/L 101 CO2 22 - 30 mmol/L 26 Anion Gap 9 - 18 mmol/L 8 (L) eGFR >=60 mL/min/1.73mA? 67 Hemoglobin A1C 4.3 - 5.6 % 5.6 Estimated Average Glucose mg/dL 114 Assessment and Plan 1. Medicare annual wellness visit, subsequent - ICD9: V70.0, ICD10: Z00.00 (primary diagnosis) See wellness note. 2. Primary hypertension - ICD9: 401.9, ICD10: I10 - Controlled 3. Anxiety about health - ICD9: 300.09, ICD10: F41.8 Controlled on medication. 4. Chappell's esophagus without dysplasia - ICD9: 530.85, ICD10: K22.70 Controlled. 5. Hyperlipidemia, unspecified hyperlipidemia type - ICD9: 272.4, ICD10: E78.5 - Controlled - Continue current medications Sammy Perez MD [facility] 12-17-2022 Note HNO ID: [id number] Author: Sammy Perez MD Service: ? Author Type: Physician Type: Progress Notes Filed: 12/18/2022 1:44 PM Note Text: Petra Haro is a 77 year old female here for a Medicare Subsequent Annual Wellness Visit Health Risk Assessment In general, health is: Very good Concerns with balance: Not at all Concerns with teeth or dentures: Not at all Concerns with sexual function: Not at all [place] anxious, stressed, angry, irritable, lonely, isolated, or had thoughts of hurting themself: Not at all Has little interest or pleasure in doing things: Not at all Bothered by feeling down, depressed, or hopeless: Not at all Needs help with grocery shopping, cooking, housework, bathing, grooming, dressing, eating, sitting or standing, walking, using the toilet, handling finances, taking medications, using the telephone, or driving: No Following safety precautions in the home environment and vehicle: removed throw rugs from floors, installed grab bars in the bathroom, handrails in stairwells, having adequate lighting, wearing seatbelt at all times?: Yes Smokes cigarettes, vapes, or chew tobacco: No Eats healthy foods including fruits, vegetables, whole grains, and fiber-rich foods: More than half the days Number of days per week engages in exercise: 2 days Average alcohol consumption: 2-3 times a week Current Providers Specialists: I have reviewed specialist-related care of the patient in the medical record. Current care team: Patient Care Team: Sammy Perez MD as PCP - General Outside specialists seen: Laura Hunter MD, surgery endoscopy. Laura Dominguez MD, orthopedics. Lobito Carter MD, cardiology. Dr. Tiwari, optometry. Brett Granado MD, dermatology. Medical/Family history review Reviewed and updated problem list, medical/surgical/family/social history, medications, and allergies. Opioid use review Patient is not currently using opioids. Depression screening Depression Screening PHQ-2 Score 06/11/2022 0 Depression screening tool completed and reviewed. Based on score and interview, patient is not at risk for depression. Screening tool discussed with patient, and I recommended no further intervention at this time. Cognitive screening Mini Cog Score: 5 Cognitive screening reviewed and no further action needed (score 3-5) Functional Observation Was the patient's timed Up AND Go test unsteady or ? 12 seconds? No Advance Care Planning End of Life planning discussed, including patient's advanced directive wishes: Yes Measurements BP 126/72 Pulse 66 Resp 16 Ht 5' .5 (1.54m) Wt 136 lb (61.7kg) BMI 26.11 kg/(m2). Visual acuity (required for Welcome to Medicare): follows with optometry/ophthalmology Hearing Evaluation: decreasing. Assessment/Plan - Counseled on healthy diet and regular exercise - Fall avoidance - Depression screening [facility] 12-14-2022 Note HNO ID: [id number] Author: Altagracia Sparks RN Service: ? Author Type: Registered Nurse Type: Nursing Progress Note Filed: 12/14/2022 12:16 PM Note Text: Abdomen soft non-distended. Will continue to monitor. [facility] 12-14-2022 Nurse Note Abdomen soft non-distended. Will continue to monitor. documented in this encounter [facility] 12-14-2022 History and physical note UPDATED PROCEDURAL SEDATION HISTORY AND PHYSICAL EXAMINATION SERVICE DATE: 12/14/2022 SERVICE TIME: 12:09 PM PHYSICAL EXAM MUST BE COMPLETED ON ADMISSION PROCEDURE: Procedure Indications: The History and Physical (completed in the past 30 days) has been reviewed and the patient has been examined. The contents accurately reflect the patient's condition with the following additions or revisions since the H&P was completed. ASA Class: ASA Class:: Patient with mild systemic disease Examination indicates no changes. AIRWAY: Airway Visualization of Uvula: Yes Mouth opening greater than 2 fingerbreadths: Yes Neck Full Range of Motion: Yes LUNGS: Lungs clear to auscultation CARDIAC: Regular rhythm,Regular rate Provisional Diagnosis/Treatment Plan: Chappell's esophagitis., dysphagia SEDATION GOAL: Moderate This H&P can be found in the attached. SIGNATURE: Gibson Hunter MD PATIENT NAME: Petra Haro DATE: December 14, 2022 TIME: 12:09 PM Source Note - Gibson Hunter MD - 12/14/2022 11:00 AM EDT Images from the original note were not included. HISTORY AND PHYSICAL Petra Haro 1945 REFERRING PHYSICIAN: Sammy Perez MD CHIEF COMPLAINT: Consult (EGD) HPI: The patient is a 77 year old female referred for endoscopy. Petra notes a history of Chappell's esophagus and is due for surveillance. Denies any dysphagia, notes some mild GERD. Patient denies any change in bowel habits, weight changes, blood in stools, black tarry stools or abdominal pain. Denies family history of colon issues. Petra has undergone prior endoscopy. Last EGD was by Dr. Guthrie on 03/08/19, no IM or dysplasia noted on biopsies at that time. Patient denies chest pain, shortness of breath or recent hospitalizations. Denies problems with sedation in the past. PAST MEDICAL HISTORY PAST MEDICAL HISTORY Diagnosis Date Acquired musculoskeletal deformity of other specified site Acute pancreatitis Arthritis 2010 in fingers/hands Arthritis of left knee 03/17/2022 Dr. 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 Irritable bowel syndrome Knee pain, left 06/21/2011 Lichen planus Low back pain, non-specific 06/13/2017 Injections as needed, Dr. Skylar Martinez. Obsessive-compulsive disorders Osteopenia 02/02/2006 Prolapse of anterior vaginal wall 10/30/2012 PAST SURGICAL HISTORY PAST SURGICAL HISTORY Procedure Laterality Date ARTHROSCOPY KNEE SUBCHONDROPLAST Left 04/24/2017 Dr. Tashi Dominguez COLONOSCOPY 09/12 repeat 5-10 years COLONOSCOPY FLX DX W/COLLJ SPEC WHEN PFRMD 06/13/2013 Colonoscopy EGD TRANSORAL BIOPSY SINGLE/MULTIPLE 07/24/08 EGD W W/O BRUSH WASH 03/03/2017 ESOPHAGOGASTRODUODENOSCOPY TRANSORAL DIAGNOSTIC 02/10/2011 EGD ESOPHAGOGASTRODUODENOSCOPY TRANSORAL DIAGNOSTIC 06/13/2013 EGD repeat 2 years ESOPHAGOGASTRODUODENOSCOPY TRANSORAL DIAGNOSTIC 04/24/2015 EGD PAST SURGICAL HISTORY OF 1993 BLADDER REPAIR PAST SURGICAL HISTORY OF 01/11 benign right breast biopsy PAST SURGICAL HISTORY OF 04/17; 07/19 cataract surgery TONSILLECTOMY PRIMARY/SECONDARY <AGE 10 1950 Tonsillectomy TOTAL ABDOMINAL HYSTERECT W/WO RMVL TUBE OVARY 1993 Hysterectomy, [place] CURRENT MEDICATIONS Current Outpatient Medications Medication Sig OTC PRODUCT Take 2 capsules by mouth once daily. Florstor pantoprazole DR (PROTONIX) 40 mg tablet Take 1 tablet by mouth twice daily. LORazepam (ATIVAN) 1 mg tablet Take 1 tablet by mouth daily at bedtime for 180 days. amLODIPine (NORVASC) 5 mg tablet Take 5 mg by mouth once daily. ondansetron orally disintegrating (ZOFRAN ODT) 4 mg disintegrating tablet Take 1 tablet by mouth every 6 hours as needed for nausea/vomiting. losartan (COZAAR) 100 mg tablet Take 1 tablet by mouth once daily. Per Dr. Carter. FLUoxetine (PROZAC) 40 mg capsule Take 1 capsule by mouth once daily. simvastatin (ZOCOR) 40 mg tablet Take 1 tablet by mouth daily at bedtime. metoprolol succinate ER (TOPROL XL) 50 mg 24 hr tablet Take 50 mg by mouth once daily. calcium carbonate-vitamin D3 600 mg (1,500 mg)-800 unit chew Take 1 tablet by mouth twice daily. Lactobacillus acidophilus 10 billion cell cap Take 1 capsule by mouth as needed. MULTIVITAMIN TAB Take one(1) tablet daily. conjugated estrogens (PREMARIN) vaginal cream Use 1 g vaginally two times a week. Use 1g vaginally every night for two weeks and then twice weekly after that.Use 0.5g in the vagina and then 0.5g around the vaginal opening (Patient not taking: No sig reported) methylcellulose (CITRUCEL ORAL) Take by mouth once daily. (Patient not taking: Reported on 09/14/2022) No current facility-administered medications for this visit. ALLERGIES: Patient has no known allergies. PERSONAL HISTORY: SOCIAL HISTORY Social History Tobacco Use Smoking status: Former Types: Cigarettes Quit date: 09/22/1990 Years since quittin.0 Smokeless tobacco: Never Vaping Use Vaping Use: Never used Substance Use Topics Alcohol use: Not Currently Alcohol/week: 17.5 standard drinks Types: 7 Glasses of Wine (5oz) per week Comment: occasionally wine Drug use: No FAMILY HISTORY: FAMILY HISTORY FAMILY HISTORY Problem Relation Age of Onset Emphysema Mother Osteoporosis Mother Heart Father Emphysema Father other (cva) Maternal Grandfather Breast Cancer Maternal Aunt other (hiatial hernia) Maternal Aunt mother, both maternal grandparents REVIEW OF SYMPTOMS: The review of systems data was entered by the nurse and reviewed by il Nursing Notes: Lina Rose LPN 09/24/2022 9:22 AM Signed REVIEW OF SYSTEMS: General: The patient denies fatigue, denies weight loss, denies weight gain, denies feeling hot, and denies feelings of cold. Eyes: The patient denies glaucoma, denies eye injury/surgery, does not wear glasses or contacts. Ear/Nose/Throat: The patient denies allergies, denies hayfever, denies ear infections, and denies bloody noses. Cardiovascular: The patient denies chest pain, denies heart disease, notes high blood pressure,denies cardiac stent, denies prior heart attack, denies irregular heart beat, denies high cholesterol, denies poor circulation, denies heart failure, other cardiac issues, denies claudication, denies cold feet, denies peripheral arterial stent. Respiratory: The patient denies tuberculosis, denies pneumonia, notes frequent cough, denies pulmonary embolism, denies shortness of breath, and denies coughing up blood. Gastrointestinal: The patient denies difficulty swallowing, notes acid reflux, denies ulcers, denies vomiting, denies jaundice/hepatitis, denies gallbladder problems, denies black or tarry stools, denies hemorrhoids, denies bleeding from rectum, notes diverticulitis, denies constipation, denies diarrhea, denies loss of stool control, and denies hernias. Kidney/Bladder: The patient denies kidney stones, notes urine infections, and denies bloody urine. Skin: The patient denies a history of skin cancer, denies bleeding/changing moles, and notes a history of skin rash. Neurologic: The patient denies a history of epilepsy/convulsions, notes headaches, denies head/spinal injuries, and denies stroke/TIA. Psychiatric: The patient notes psychiatric medications, denies depression, and denies voices, denies substance abuse. Endocrine: The patient denies thyroid disorders, denies diabetes, and denies hormonal problems. Hematologic: The patient notes a history of bruising, denies bleeding, and denies anemia, denies blood clots. Infections: The patient notes a history of measles and mumps, denies rheumatic fever, and denies sexually transmitted diseases. Musculoskeletal: The patient denies back pain/injury, notes back problems, denies sciatica, notes knee/foot trouble, notes arthritis, or denies gout. When was patient's last Mammogram screening? 2019 Last Colonoscopy: 2012 Lina Rose LPN I have confirmed and edited as necessary, the PFSH and ROS obtained by others. Santana Proctor PA-C PHYSICAL EXAMINATION: General: The patient is 77 year old female, well nourished, well hydrated in no acute distress. The patient is oriented to time, place, and person. VITALS: Blood pressure 130/64, pulse 82, temperature 36.4 C (97.6 F), height 157.5 cm (5' 2 ), weight 63.5 kg (140 lb), SpO2 100 %. Body mass index is 25.61 kg/m . HEENT: Normal cephalic, ataumatic, pupils are equally round, sclera are anicteric, mucous membranes are moist, oropharynx is clear. Neck has no masses, asymmetry or lymphadenopathy. Respiratory: Clear to auscultation and percussion. Normal respiratory excursion and pattern. Cardiac: Examination is regular rate and rhythm. Normal S1/S2 Abdominal exam: Soft, nontender, with no palpable masses. No hepatosplenomegaly. No palpable hernias. Extremities: no clubbing, cyanosis or edema. No adenopathy. LABORATORY VALUES: As Noted RADIOLOGIC STUDIES: As Noted Assessment IMPRESSION: Chappell's esophagus without dysplasia, encounter for surveillance EGD PLAN: I have reviewed my findings with the surgeon. Will plan for upper endoscopy. We discussed the risks and benefits of the planned endoscopy. I have informed the patient that complications can occur including failure to complete the endoscopy and perforation. The patient had the opportunity to ask questions concerning the planned endoscopy. My staff has also explained the procedure to the patient in understandable terms and has given the patient printed material concerning the procedure. The patient freely consents to surgery. The patient was offered a surgery/procedure at a [facility] facility. I have counseled the patient regarding the risk of exposure to and/or potential harm posed by the COVID-19 virus with having a surgery/procedure at this time versus the risk of delaying the surgery/procedure. It is not possible to know either the risk of delaying the surgery or procedure or chance of getting an infection with perfect accuracy, but a joint decision was made between the patient and myself to proceed at this time with endoscopy. I have explained to the patient the difference between IV conscious sedation and MAC anesthesia - and I have offered either, according to the patient's wishes. I have explained that with IV conscious sedation there is no anesthesia provider available and therefore there is a limitation of the amount of IV medications that can be given and that the patient may wake up in the middle of the procedure and/or experience pain/discomfort during the procedure. Further discussion was done and the patient was given the opportunity to ask questions and all questions were answered. The patient chooses IV conscious sedation Diagnoses: (K22.70) Chappell's esophagus without dysplasia (primary encounter diagnosis) Consultation requested by Dr. perez for an opinion regarding Chappell's esophagus and need for surveillance EGD. My final recommendations will be communicated back to the requesting physician by way of shared Medical record or letter to requesting physician via US mail. Santana Proctor PA-C Images from the original note were not included. HISTORY AND PHYSICAL Petra Haro 1945 REFERRING PHYSICIAN: Sammy Perez MD CHIEF COMPLAINT: Consult (EGD) HPI: The patient is a 77 year old female referred for endoscopy. Petra notes a history of Chappell's esophagus and is due for surveillance. Denies any dysphagia, notes some mild GERD. Patient denies any change in bowel habits, weight changes, blood in stools, black tarry stools or abdominal pain. Denies family history of colon issues. Petra has undergone prior endoscopy. Last EGD was by Dr. Guthrie on 03/08/19, no IM or dysplasia noted on biopsies at that time. Patient denies chest pain, shortness of breath or recent hospitalizations. Denies problems with sedation in the past. PAST MEDICAL HISTORY PAST MEDICAL HISTORY Diagnosis Date Acquired musculoskeletal deformity of other specified site Acute pancreatitis Arthritis 2010 in fingers/hands Arthritis of left knee 03/17/2022 Dr. 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 Irritable bowel syndrome Knee pain, left 06/21/2011 Lichen planus Low back pain, non-specific 06/13/2017 Injections as needed, Dr. Skylar Martinez. Obsessive-compulsive disorders Osteopenia 02/02/2006 Prolapse of anterior vaginal wall 10/30/2012 PAST SURGICAL HISTORY PAST SURGICAL HISTORY Procedure Laterality Date ARTHROSCOPY KNEE SUBCHONDROPLAST Left 04/24/2017 Dr. Tashi Dominguez COLONOSCOPY 09/12 repeat 5-10 years COLONOSCOPY FLX DX W/COLLJ SPEC WHEN PFRMD 06/13/2013 Colonoscopy EGD TRANSORAL BIOPSY SINGLE/MULTIPLE 07/24/08 EGD W W/O BRUSH WASH 03/03/2017 ESOPHAGOGASTRODUODENOSCOPY TRANSORAL DIAGNOSTIC 02/10/2011 EGD ESOPHAGOGASTRODUODENOSCOPY TRANSORAL DIAGNOSTIC 06/13/2013 EGD repeat 2 years ESOPHAGOGASTRODUODENOSCOPY TRANSORAL DIAGNOSTIC 04/24/2015 EGD PAST SURGICAL HISTORY OF 1993 BLADDER REPAIR PAST SURGICAL HISTORY OF 01/11 benign right breast biopsy PAST SURGICAL HISTORY OF 04/17; 07/19 cataract surgery TONSILLECTOMY PRIMARY/SECONDARY <AGE 10 1950 Tonsillectomy TOTAL ABDOMINAL HYSTERECT W/WO RMVL TUBE OVARY 1993 Hysterectomy, [place] CURRENT MEDICATIONS Current Outpatient Medications Medication Sig OTC PRODUCT Take 2 capsules by mouth once daily. Florstor pantoprazole DR (PROTONIX) 40 mg tablet Take 1 tablet by mouth twice daily. LORazepam (ATIVAN) 1 mg tablet Take 1 tablet by mouth daily at bedtime for 180 days. amLODIPine (NORVASC) 5 mg tablet Take 5 mg by mouth once daily. ondansetron orally disintegrating (ZOFRAN ODT) 4 mg disintegrating tablet Take 1 tablet by mouth every 6 hours as needed for nausea/vomiting. losartan (COZAAR) 100 mg tablet Take 1 tablet by mouth once daily. Per Dr. Carter. FLUoxetine (PROZAC) 40 mg capsule Take 1 capsule by mouth once daily. simvastatin (ZOCOR) 40 mg tablet Take 1 tablet by mouth daily at bedtime. metoprolol succinate ER (TOPROL XL) 50 mg 24 hr tablet Take 50 mg by mouth once daily. calcium carbonate-vitamin D3 600 mg (1,500 mg)-800 unit chew Take 1 tablet by mouth twice daily. Lactobacillus acidophilus 10 billion cell cap Take 1 capsule by mouth as needed. MULTIVITAMIN TAB Take one(1) tablet daily. conjugated estrogens (PREMARIN) vaginal cream Use 1 g vaginally two times a week. Use 1g vaginally every night for two weeks and then twice weekly after that.Use 0.5g in the vagina and then 0.5g around the vaginal opening (Patient not taking: No sig reported) methylcellulose (CITRUCEL ORAL) Take by mouth once daily. (Patient not taking: Reported on 09/14/2022) No current facility-administered medications for this visit. ALLERGIES: Patient has no known allergies. PERSONAL HISTORY: SOCIAL HISTORY Social History Tobacco Use Smoking status: Former Types: Cigarettes Quit date: 09/22/1990 Years since quittin.0 Smokeless tobacco: Never Vaping Use Vaping Use: Never used Substance Use Topics Alcohol use: Not Currently Alcohol/week: 17.5 standard drinks Types: 7 Glasses of Wine (5oz) per week Comment: occasionally wine Drug use: No FAMILY HISTORY: FAMILY HISTORY FAMILY HISTORY Problem Relation Age of Onset Emphysema Mother Osteoporosis Mother Heart Father Emphysema Father other (cva) Maternal Grandfather Breast Cancer Maternal Aunt other (hiatial hernia) Maternal Aunt mother, both maternal grandparents REVIEW OF SYMPTOMS: The review of systems data was entered by the nurse and reviewed by me Nursing Notes: Lina Rose LPN 09/24/2022 9:22 AM Signed REVIEW OF SYSTEMS: General: The patient denies fatigue, denies weight loss, denies weight gain, denies feeling hot, and denies feelings of cold. Eyes: The patient denies glaucoma, denies eye injury/surgery, does not wear glasses or contacts. Ear/Nose/Throat: The patient denies allergies, denies hayfever, denies ear infections, and denies bloody noses. Cardiovascular: The patient denies chest pain, denies heart disease, notes high blood pressure,denies cardiac stent, denies prior heart attack, denies irregular heart beat, denies high cholesterol, denies poor circulation, denies heart failure, other cardiac issues, denies claudication, denies cold feet, denies peripheral arterial stent. Respiratory: The patient denies tuberculosis, denies pneumonia, notes frequent cough, denies pulmonary embolism, denies shortness of breath, and denies coughing up blood. Gastrointestinal: The patient denies difficulty swallowing, notes acid reflux, denies ulcers, denies vomiting, denies jaundice/hepatitis, denies gallbladder problems, denies black or tarry stools, denies hemorrhoids, denies bleeding from rectum, notes diverticulitis, denies constipation, denies diarrhea, denies loss of stool control, and denies hernias. Kidney/Bladder: The patient denies kidney stones, notes urine infections, and denies bloody urine. Skin: The patient denies a history of skin cancer, denies bleeding/changing moles, and notes a history of skin rash. Neurologic: The patient denies a history of epilepsy/convulsions, notes headaches, denies head/spinal injuries, and denies stroke/TIA. Psychiatric: The patient notes psychiatric medications, denies depression, and denies voices, denies substance abuse. Endocrine: The patient denies thyroid disorders, denies diabetes, and denies hormonal problems. Hematologic: The patient notes a history of bruising, denies bleeding, and denies anemia, denies blood clots. Infections: The patient notes a history of measles and mumps, denies rheumatic fever, and denies sexually transmitted diseases. Musculoskeletal: The patient denies back pain/injury, notes back problems, denies sciatica, notes knee/foot trouble, notes arthritis, or denies gout. When was patient's last Mammogram screening? 2019 Last Colonoscopy: 2012 Lina Rose LPN I have confirmed and edited as necessary, the PFSH and ROS obtained by others. Santana Proctor PA-C PHYSICAL EXAMINATION: General: The patient is 77 year old female, well nourished, well hydrated in no acute distress. The patient is oriented to time, place, and person. VITALS: Blood pressure 130/64, pulse 82, temperature 36.4 C (97.6 F), height 157.5 cm (5' 2 ), weight 63.5 kg (140 lb), SpO2 100 %. Body mass index is 25.61 kg/m . HEENT: Normal cephalic, ataumatic, pupils are equally round, sclera are anicteric, mucous membranes are moist, oropharynx is clear. Neck has no masses, asymmetry or lymphadenopathy. Respiratory: Clear to auscultation and percussion. Normal respiratory excursion and pattern. Cardiac: Examination is regular rate and rhythm. Normal S1/S2 Abdominal exam: Soft, nontender, with no palpable masses. No hepatosplenomegaly. No palpable hernias. Extremities: no clubbing, cyanosis or edema. No adenopathy. LABORATORY VALUES: As Noted RADIOLOGIC STUDIES: As Noted Assessment IMPRESSION: Chappell's esophagus without dysplasia, encounter for surveillance EGD PLAN: I have reviewed my findings with the surgeon. Will plan for upper endoscopy. We discussed the risks and benefits of the planned endoscopy. I have informed the patient that complications can occur including failure to complete the endoscopy and perforation. The patient had the opportunity to ask questions concerning the planned endoscopy. My staff has also explained the procedure to the patient in understandable terms and has given the patient printed material concerning the procedure. The patient freely consents to surgery. The patient was offered a surgery/procedure at a [facility] facility. I have counseled the patient regarding the risk of exposure to and/or potential harm posed by the COVID-19 virus with having a surgery/procedure at this time versus the risk of delaying the surgery/procedure. It is not possible to know either the risk of delaying the surgery or procedure or chance of getting an infection with perfect accuracy, but a joint decision was made between the patient and myself to proceed at this time with endoscopy. I have explained to the patient the difference between IV conscious sedation and MAC anesthesia - and I have offered either, according to the patient's wishes. I have explained that with IV conscious sedation there is no anesthesia provider available and therefore there is a limitation of the amount of IV medications that can be given and that the patient may wake up in the middle of the procedure and/or experience pain/discomfort during the procedure. Further discussion was done and the patient was given the opportunity to ask questions and all questions were answered. The patient chooses IV conscious sedation Diagnoses: (K22.70) Chappell's esophagus without dysplasia (primary encounter diagnosis) Consultation requested by Dr. perez for an opinion regarding Chappell's esophagus and need for surveillance EGD. My final recommendations will be communicated back to the requesting physician by way of shared Medical record or letter to requesting physician via US mail. Santana Proctor PA-C documented in this encounter [facility] 12-13-2022 Miscellaneous Notes Patient notified, verbalized understanding. Fasting blood chemistry ordered. Pt came in stated she needed labs before her next appointment with . No new labs were put in her active request. Please review and advise. Erendira ALTAMIRANO documented in this encounter [facility] 09-24-2022 Note HNO ID: [id number] Author: Santana Proctor PA-C Service: ? Author Type: Physician Vocational Technical Education Teacher Type: Progress Notes Filed: 09/24/2022 10:01 AM Note Text: HISTORY AND PHYSICAL Petra Haro 1945 REFERRING PHYSICIAN: Sammy Perez MD CHIEF COMPLAINT: Consult (EGD) HPI: The patient is a 77 year old female referred for endoscopy. Petra notes a history of Chappell's esophagus and is due for surveillance. Denies any dysphagia, notes some mild GERD. Patient denies any change in bowel habits, weight changes, blood in stools, black tarry stools or abdominal pain. Denies family history of colon issues. Petra has undergone prior endoscopy. Last EGD was by Dr. Guthrie on 03/08/19, no IM or dysplasia noted on biopsies at that time. Patient denies chest pain, shortness of breath or recent hospitalizations. Denies problems with sedation in the past. PAST MEDICAL HISTORY Diagnosis Date Acquired musculoskeletal deformity of other specified site Acute pancreatitis Arthritis 2010 in fingers/hands Arthritis of left knee 03/17/2022 Dr. 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 Irritable bowel syndrome Knee pain, left 06/21/2011 Lichen planus Low back pain, non-specific 06/13/2017 Injections as needed, Dr. Skylar Martinez. Obsessive-compulsive disorders Osteopenia 02/02/2006 Prolapse of anterior vaginal wall 10/30/2012 PAST SURGICAL HISTORY Procedure Laterality Date ARTHROSCOPY KNEE SUBCHONDROPLAST Left 04/24/2017 Dr. Tashi Dominguez COLONOSCOPY 09/12 repeat 5-10 years COLONOSCOPY FLX DX W/COLLJ SPEC WHEN PFRMD 06/13/2013 Colonoscopy EGD TRANSORAL BIOPSY SINGLE/MULTIPLE 07/24/08 EGD W W/O BRUSH WASH 03/03/2017 ESOPHAGOGASTRODUODENOSCOPY TRANSORAL DIAGNOSTIC 02/10/2011 EGD ESOPHAGOGASTRODUODENOSCOPY TRANSORAL DIAGNOSTIC 06/13/2013 EGD repeat 2 years ESOPHAGOGASTRODUODENOSCOPY TRANSORAL DIAGNOSTIC 04/24/2015 EGD PAST SURGICAL HISTORY OF 1994 BLADDER REPAIR PAST SURGICAL HISTORY OF 7/04 benign right breast biopsy PAST SURGICAL HISTORY OF 04/17; 07/19 cataract surgery TONSILLECTOMY PRIMARY/SECONDARY Tonsillectomy TOTAL ABDOMINAL HYSTERECT W/WO RMVL TUBE OVARY 1993 Hysterectomy, [facility] Current Outpatient Medications Medication Sig OTC PRODUCT Take 2 capsules by mouth once daily. Florstor pantoprazole DR (PROTONIX) 40 mg tablet Take 1 tablet by mouth twice daily. LORazepam (ATIVAN) 1 mg tablet Take 1 tablet by mouth daily at bedtime for 180 days. amLODIPine (NORVASC) 5 mg tablet Take 5 mg by mouth once daily. ondansetron orally disintegrating (ZOFRAN ODT) 4 mg disintegrating tablet Take 1 tablet by mouth every 6 hours as needed for nausea/vomiting. losartan (COZAAR) 100 mg tablet Take 1 tablet by mouth once daily. Per Dr. Carter. FLUoxetine (PROZAC) 40 mg capsule Take 1 capsule by mouth once daily. simvastatin (ZOCOR) 40 mg tablet Take 1 tablet by mouth daily at bedtime. metoprolol succinate ER (TOPROL XL) 50 mg 24 hr tablet Take 50 mg by mouth once daily. calcium carbonate-vitamin D3 600 mg (1,500 mg)-800 unit chew Take 1 tablet by mouth twice daily. Lactobacillus acidophilus 10 billion cell cap Take 1 capsule by mouth as needed. MULTIVITAMIN TAB Take one(1) tablet daily. conjugated estrogens (PREMARIN) vaginal cream Use 1 g vaginally two times a week. Use 1g vaginally every night for two weeks and then twice weekly after that.Use 0.5g in the vagina and then 0.5g around the vaginal opening (Patient not taking: No sig reported) methylcellulose (CITRUCEL ORAL) Take by mouth once daily. (Patient not taking: Reported on 09/14/2022) No current facility-administered medications for this visit. ALLERGIES: Patient has no known allergies. PERSONAL HISTORY: Social History Tobacco Use Smoking status: Former Types: Cigarettes Quit date: 09/22/1990 Years since quittin.0 Smokeless tobacco: Never Vaping Use Vaping Use: Never used Substance Use Topics Alcohol use: Not Currently Alcohol/week: 17.5 standard drinks Types: 7 Glasses of Wine (5oz) per week Comment: occasionally wine Drug use: No FAMILY HISTORY: FAMILY HISTORY Problem Relation Age of Onset Emphysema Mother Osteoporosis Mother Heart Father Emphysema Father other (cva) Maternal Grandfather Breast Cancer Maternal Aunt other (hiatial hernia) Maternal Aunt mother, both maternal grandparents REVIEW OF SYMPTOMS: The review of systems data was entered by the nurse and reviewed by me Nursing Notes: Lina RoseALEX 09/24/2022 9:22 AM Signed REVIEW OF SYSTEMS: General: The patient denies fatigue, denies weight loss, denies weight gain, denies feeling hot, and denies feelings of cold. Eyes: The patient denies glaucoma, denies eye injury/surgery, does not wear glasses or conta (more content not included)... [facility] 09-24-2022 History of Present illness Narrative HISTORY AND PHYSICAL Petra Haro 1945 REFERRING PHYSICIAN: Sammy Perez MD CHIEF COMPLAINT: Consult (EGD) HPI: The patient is a 77 year old female referred for endoscopy. Petra notes a history of Chappell's esophagus and is due for surveillance. Denies any dysphagia, notes some mild GERD. Patient denies any change in bowel habits, weight changes, blood in stools, black tarry stools or abdominal pain. Denies family history of colon issues. Petra has undergone prior endoscopy. Last EGD was by Dr. Guthrie on 03/08/19, no IM or dysplasia noted on biopsies at that time. Patient denies chest pain, shortness of breath or recent hospitalizations. Denies problems with sedation in the past. PAST MEDICAL HISTORY Diagnosis Date Acquired musculoskeletal deformity of other specified site Acute pancreatitis Arthritis 2010 in fingers/hands Arthritis of left knee 03/17/2022 Dr. 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 Irritable bowel syndrome Knee pain, left 06/21/2011 Lichen planus Low back pain, non-specific 06/13/2017 Injections as needed, Dr. Skylar Martinez. Obsessive-compulsive disorders Osteopenia 02/02/2006 Prolapse of anterior vaginal wall 10/30/2012 PAST SURGICAL HISTORY Procedure Laterality Date ARTHROSCOPY KNEE SUBCHONDROPLAST Left 04/24/2017 Dr. Tashi Dominguez COLONOSCOPY 09/12 repeat 5-10 years COLONOSCOPY FLX DX W/COLLJ SPEC WHEN PFRMD 06/13/2013 Colonoscopy EGD TRANSORAL BIOPSY SINGLE/MULTIPLE 07/24/08 EGD W W/O BRUSH WASH 03/03/2017 ESOPHAGOGASTRODUODENOSCOPY TRANSORAL DIAGNOSTIC 02/10/2011 EGD ESOPHAGOGASTRODUODENOSCOPY TRANSORAL DIAGNOSTIC 06/13/2013 EGD repeat 2 years ESOPHAGOGASTRODUODENOSCOPY TRANSORAL DIAGNOSTIC 04/24/2015 EGD PAST SURGICAL HISTORY OF 1993 BLADDER REPAIR PAST SURGICAL HISTORY OF 01/11 benign right breast biopsy PAST SURGICAL HISTORY OF 04/17; 07/19 cataract surgery TONSILLECTOMY PRIMARY/SECONDARY <AGE 12 1950 Tonsillectomy TOTAL ABDOMINAL HYSTERECT W/WO RMVL TUBE OVARY 1993 Hysterectomy, [place] Current Outpatient Medications Medication Sig OTC PRODUCT Take 2 capsules by mouth once daily. Florstor pantoprazole DR (PROTONIX) 40 mg tablet Take 1 tablet by mouth twice daily. LORazepam (ATIVAN) 1 mg tablet Take 1 tablet by mouth daily at bedtime for 180 days. amLODIPine (NORVASC) 5 mg tablet Take 5 mg by mouth once daily. ondansetron orally disintegrating (ZOFRAN ODT) 4 mg disintegrating tablet Take 1 tablet by mouth every 6 hours as needed for nausea/vomiting. losartan (COZAAR) 100 mg tablet Take 1 tablet by mouth once daily. Per Dr. Carter. FLUoxetine (PROZAC) 40 mg capsule Take 1 capsule by mouth once daily. simvastatin (ZOCOR) 40 mg tablet Take 1 tablet by mouth daily at bedtime. metoprolol succinate ER (TOPROL XL) 50 mg 24 hr tablet Take 50 mg by mouth once daily. calcium carbonate-vitamin D3 600 mg (1,500 mg)-800 unit chew Take 1 tablet by mouth twice daily. Lactobacillus acidophilus 10 billion cell cap Take 1 capsule by mouth as needed. MULTIVITAMIN TAB Take one(1) tablet daily. conjugated estrogens (PREMARIN) vaginal cream Use 1 g vaginally two times a week. Use 1g vaginally every night for two weeks and then twice weekly after that.Use 0.5g in the vagina and then 0.5g around the vaginal opening (Patient not taking: No sig reported) methylcellulose (CITRUCEL ORAL) Take by mouth once daily. (Patient not taking: Reported on 09/14/2022) No current facility-administered medications for this visit. ALLERGIES: Patient has no known allergies. PERSONAL HISTORY: Social History Tobacco Use Smoking status: Former Types: Cigarettes Quit date: 09/22/1990 Years since quittin.0 Smokeless tobacco: Never Vaping Use Vaping Use: Never used Substance Use Topics Alcohol use: Not Currently Alcohol/week: 17.5 standard drinks Types: 7 Glasses of Wine (5oz) per week Comment: occasionally wine Drug use: No FAMILY HISTORY: FAMILY HISTORY Problem Relation Age of Onset Emphysema Mother Osteoporosis Mother Heart Father Emphysema Father other (cva) Maternal Grandfather Breast Cancer Maternal Aunt other (hiatial hernia) Maternal Aunt mother, both maternal grandparents REVIEW OF SYMPTOMS: The review of systems data was entered by the nurse and reviewed by me Nursing Notes: Lina Rose LPN 09/24/2022 9:22 AM Signed REVIEW OF SYSTEMS: General: The patient denies fatigue, denies weight loss, denies weight gain, denies feeling hot, and denies feelings of cold. Eyes: The patient denies glaucoma, denies eye injury/surgery, does not wear glasses or contacts. Ear/Nose/Throat: The patient denies allergies, denies hayfever, denies ear infections, and denies bloody noses. Cardiovascular: The patient denies chest pain, denies heart disease, notes high blood pressure,denies cardiac stent, denies prior heart attack, denies irregular heart beat, denies high cholesterol, denies poor circulation, denies heart failure, other cardiac issues, denies claudication, denies cold feet, denies peripheral arterial stent. Respiratory: The patient denies tuberculosis, denies pneumonia, notes frequent cough, denies pulmonary embolism, denies shortness of breath, and denies coughing up blood. Gastrointestinal: The patient denies difficulty swallowing, notes acid reflux, denies ulcers, denies vomiting, denies jaundice/hepatitis, denies gallbladder problems, denies black or tarry stools, denies hemorrhoids, denies bleeding from rectum, notes diverticulitis, denies constipation, denies diarrhea, denies loss of stool control, and denies hernias. Kidney/Bladder: The patient denies kidney stones, notes urine infections, and denies bloody urine. Skin: The patient denies a history of skin cancer, denies bleeding/changing moles, and notes a history of skin rash. Neurologic: The patient denies a history of epilepsy/convulsions, notes headaches, denies head/spinal injuries, and denies stroke/TIA. Psychiatric: The patient notes psychiatric medications, denies depression, and denies voices, denies substance abuse. Endocrine: The patient denies thyroid disorders, denies diabetes, and denies hormonal problems. Hematologic: The patient notes a history of bruising, denies bleeding, and denies anemia, denies blood clots. Infections: The patient notes a history of measles and mumps, denies rheumatic fever, and denies sexually transmitted diseases. Musculoskeletal: The patient denies back pain/injury, notes back problems, denies sciatica, notes knee/foot trouble, notes arthritis, or denies gout. When was patient's last Mammogram screening? 2019 Last Colonoscopy: 2012 Lina Rose LPN I have confirmed and edited as necessary, the PFSH and ROS obtained by others. Santana Proctor PA-C PHYSICAL EXAMINATION: General: The patient is 77 year old female, well nourished, well hydrated in no acute distress. The patient is oriented to time, place, and person. VITALS: Blood pressure 130/64, pulse 82, temperature 36.4 C (97.6 F), height 157.5 cm (5' 2 ), weight 63.5 kg (140 lb), SpO2 100 %. Body mass index is 25.61 kg/m . HEENT: Normal cephalic, ataumatic, pupils are equally round, sclera are anicteric, mucous membranes are moist, oropharynx is clear. Neck has no masses, asymmetry or lymphadenopathy. Respiratory: Clear to auscultation and percussion. Normal respiratory excursion and pattern. Cardiac: Examination is regular rate and rhythm. Normal S1/S2 Abdominal exam: Soft, nontender, with no palpable masses. No hepatosplenomegaly. No palpable hernias. Extremities: no clubbing, cyanosis or edema. No adenopathy. LABORATORY VALUES: As Noted RADIOLOGIC STUDIES: As Noted Assessment IMPRESSION: Chappell's esophagus without dysplasia, encounter for surveillance EGD PLAN: I have reviewed my findings with the surgeon. Will plan for upper endoscopy. We discussed the risks and benefits of the planned endoscopy. I have informed the patient that complications can occur including failure to complete the endoscopy and perforation. The patient had the opportunity to ask questions concerning the planned endoscopy. My staff has also explained the procedure to the patient in understandable terms and has given the patient printed material concerning the procedure. The patient freely consents to surgery. The patient was offered a surgery/procedure at a [facility] facility. I have counseled the patient regarding the risk of exposure to and/or potential harm posed by the COVID-19 virus with having a surgery/procedure at this time versus the risk of delaying the surgery/procedure. It is not possible to know either the risk of delaying the surgery or procedure or chance of getting an infection with perfect accuracy, but a joint decision was made between the patient and myself to proceed at this time with endoscopy. I have explained to the patient the difference between IV conscious sedation and MAC anesthesia - and I have offered either, according to the patient's wishes. I have explained that with IV conscious sedation there is no anesthesia provider available and therefore there is a limitation of the amount of IV medications that can be given and that the patient may wake up in the middle of the procedure and/or experience pain/discomfort during the procedure. Further discussion was done and the patient was given the opportunity to ask questions and all questions were answered. The patient chooses IV conscious sedation Diagnoses: (K22.70) Chappell's esophagus without dysplasia (primary encounter diagnosis) Consultation requested by Dr. perez for an opinion regarding Chappell's esophagus and need for surveillance EGD. My final recommendations will be communicated back to the requesting physician by way of shared Medical record or letter to requesting physician via US mail. Santana Proctor PA-C documented in this encounter [facility] 09-24-2022 Nurse Note REVIEW OF SYSTEMS: General: The patient denies fatigue, denies weight loss, denies weight gain, denies feeling hot, and denies feelings of cold. Eyes: The patient denies glaucoma, denies eye injury/surgery, does not wear glasses or contacts. Ear/Nose/Throat: The patient denies allergies, denies hayfever, denies ear infections, and denies bloody noses. Cardiovascular: The patient denies chest pain, denies heart disease, notes high blood pressure,denies cardiac stent, denies prior heart attack, denies irregular heart beat, denies high cholesterol, denies poor circulation, denies heart failure, other cardiac issues, denies claudication, denies cold feet, denies peripheral arterial stent. Respiratory: The patient denies tuberculosis, denies pneumonia, notes frequent cough, denies pulmonary embolism, denies shortness of breath, and denies coughing up blood. Gastrointestinal: The patient denies difficulty swallowing, notes acid reflux, denies ulcers, denies vomiting, denies jaundice/hepatitis, denies gallbladder problems, denies black or tarry stools, denies hemorrhoids, denies bleeding from rectum, notes diverticulitis, denies constipation, denies diarrhea, denies loss of stool control, and denies hernias. Kidney/Bladder: The patient denies kidney stones, notes urine infections, and denies bloody urine. Skin: The patient denies a history of skin cancer, denies bleeding/changing moles, and notes a history of skin rash. Neurologic: The patient denies a history of epilepsy/convulsions, notes headaches, denies head/spinal injuries, and denies stroke/TIA. Psychiatric: The patient notes psychiatric medications, denies depression, and denies voices, denies substance abuse. Endocrine: The patient denies thyroid disorders, denies diabetes, and denies hormonal problems. Hematologic: The patient notes a history of bruising, denies bleeding, and denies anemia, denies blood clots. Infections: The patient notes a history of measles and mumps, denies rheumatic fever, and denies sexually transmitted diseases. Musculoskeletal: The patient denies back pain/injury, notes back problems, denies sciatica, notes knee/foot trouble, notes arthritis, or denies gout. When was patient's last Mammogram screening? 2019 Last Colonoscopy: 2012 Lina Rose LPN documented in this encounter [facility] 09-14-2022 Note HNO ID: [id number] Author: Sammy Perez MD Service: ? Author Type: Physician Type: Progress Notes Filed: 09/15/2022 2:44 PM Note Text: This note was created using NoteWriter. Subjective Petra Haro is a 77 year old female. She was seeing Dr. 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 She's had no recurrence of urinary tract infection. She was overdue for a recheck of her Chappell's and will schedule that. She still had some acid reflux on high dose PPI. Review of Systems Constitutional: Negative. HENT: Negative for trouble swallowing. Respiratory: Negative. Cardiovascular: Negative. Gastrointestinal: Negative. Genitourinary: Negative. Neurological: Negative. ACTIVE PROBLEM LIST Lichen Planus Osteopenia Obsessive-Compulsive Disorder Irritable Bowel Syndrome Esophageal Reflux Hyperlipemia Headache(784.0) Vitamin D Deficiency Insomnia, Persistent Chappell Esophagus Htn (Hypertension) Raynaud Phenomenon Low Back Pain, Non-Specific Hypokalemia Anxiety About Health Arthritis of Left Knee Social History Tobacco Use Smoking status: Former Types: Cigarettes Quit date: 09/22/1990 Years since quittin.0 Smokeless tobacco: Never Vaping Use Vaping Use: Never used Substance Use Topics Alcohol use: Not Currently Alcohol/week: 17.5 standard drinks Types: 7 Glasses of Wine (5oz) per week Comment: occasionally wine Drug use: No Current Outpatient Medications Medication Sig OTC PRODUCT Take 2 capsules by mouth once daily. Florstor amLODIPine (NORVASC) 5 mg tablet Take 5 mg by mouth once daily. ondansetron orally disintegrating (ZOFRAN ODT) 4 mg disintegrating tablet Take 1 tablet by mouth every 6 hours as needed for nausea/vomiting. losartan (COZAAR) 100 mg tablet Take 1 tablet by mouth once daily. Per Dr. Carter. LORazepam (ATIVAN) 1 mg tablet Take 1 tablet by mouth daily at bedtime for 180 days. FLUoxetine (PROZAC) 40 mg capsule Take 1 capsule by mouth once daily. simvastatin (ZOCOR) 40 mg tablet Take 1 tablet by mouth daily at bedtime. pantoprazole DR (PROTONIX) 40 mg tablet Take 1 tablet by mouth twice daily. metoprolol succinate ER (TOPROL XL) 50 mg 24 hr tablet Take 50 mg by mouth once daily. calcium carbonate-vitamin D3 600 mg (1,500 mg)-800 unit chew Take 1 tablet by mouth twice daily. Lactobacillus acidophilus 10 billion cell cap Take 1 capsule by mouth as needed. MULTIVITAMIN TAB Take one(1) tablet daily. conjugated estrogens (PREMARIN) vaginal cream Use 1 g vaginally two times a week. Use 1g vaginally every night for two weeks and then twice weekly after that.Use 0.5g in the vagina and then 0.5g around the vaginal opening (Patient not taking: No sig reported) methylcellulose (CITRUCEL ORAL) Take by mouth once daily. (Patient not taking: Reported on 09/14/2022) No current facility-administered medications for this visit. Objective BP 116/70 (BP Site: Right Arm, BP Position: Sitting, BP Cuff Size: Large Adult) Pulse 68 Resp 16 Wt 63 kg (139 lb) BMI 25.91 kg/m? Physical Exam Constitutional: General: She is not in acute distress. Appearance: She is not ill-appearing. Cardiovascular: Rate and Rhythm: Normal rate and regular rhythm. Heart sounds: No murmur heard. No gallop. Pulmonary: Breath sounds: Normal breath sounds. Abdominal: Tenderness: There is no abdominal tenderness. Musculoskeletal: Right lower leg: No edema. Left lower leg: No edema. Neurological: Mental Status: She is alert. Gait: Gait normal. Assessment and Plan 1. Primary hypertension - ICD9: 401.9, ICD10: I10 (primary diagnosis) - good control - Continue current medication(s) - Do fasting labs previously ordered. - Goal of BP <130/80 2. Gastroesophageal reflux disease without esophagitis - ICD9: 530.81, ICD10: K21.9 - PANTOPRAZOLE 40 MG TABLET,DELAYED RELEASE 3. Chappell's esophagus without dysplasia - ICD9: 530.85, ICD10: K22.70 She will schedule with GI. - PANTOPRAZOLE 40 MG TABLET,DELAYED RELEASE 4. Anxiety about health - ICD9: 300.09, ICD10: F41.8 Refilled. - LORAZEPAM 1 MG TABLET 5. Hyperlipidemia, unspecified hyperlipidemia type - ICD9: 272.4, ICD10: E78.5 - good control - Continue current medication. Sammy Perez MD [facility] 09-14-2022 Instructions Sammy Perez MD - 09/14/2022 11:09 AM EST DO FASTING BLOOD WORK ANY TIME SOON. documented in this encounter [facility] 09-14-2022 History of Present illness Narrative This note was created using [employer]. Subjective Petra Haro is a 77 year old female. She was seeing Dr. 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 She's had no recurrence of urinary tract infection. She was overdue for a recheck of her Chappell's and will schedule that. She still had some acid reflux on high dose PPI. Review of Systems Constitutional: Negative. HENT: Negative for trouble swallowing. Respiratory: Negative. Cardiovascular: Negative. Gastrointestinal: Negative. Genitourinary: Negative. Neurological: Negative. ACTIVE PROBLEM LIST Lichen Planus Osteopenia Obsessive-Compulsive Disorder Irritable Bowel Syndrome Esophageal Reflux Hyperlipemia Headache(784.0) Vitamin D Deficiency Insomnia, Persistent Chappell Esophagus Htn (Hypertension) Raynaud Phenomenon Low Back Pain, Non-Specific Hypokalemia Anxiety About Health Arthritis of Left Knee Social History Tobacco Use Smoking status: Former Types: Cigarettes Quit date: 09/22/1990 Years since quittin.0 Smokeless tobacco: Never Vaping Use Vaping Use: Never used Substance Use Topics Alcohol use: Not Currently Alcohol/week: 17.5 standard drinks Types: 7 Glasses of Wine (5oz) per week Comment: occasionally wine Drug use: No Current Outpatient Medications Medication Sig OTC PRODUCT Take 2 capsules by mouth once daily. Florstor amLODIPine (NORVASC) 5 mg tablet Take 5 mg by mouth once daily. ondansetron orally disintegrating (ZOFRAN ODT) 4 mg disintegrating tablet Take 1 tablet by mouth every 6 hours as needed for nausea/vomiting. losartan (COZAAR) 100 mg tablet Take 1 tablet by mouth once daily. Per Dr. Carter. LORazepam (ATIVAN) 1 mg tablet Take 1 tablet by mouth daily at bedtime for 180 days. FLUoxetine (PROZAC) 40 mg capsule Take 1 capsule by mouth once daily. simvastatin (ZOCOR) 40 mg tablet Take 1 tablet by mouth daily at bedtime. pantoprazole DR (PROTONIX) 40 mg tablet Take 1 tablet by mouth twice daily. metoprolol succinate ER (TOPROL XL) 50 mg 24 hr tablet Take 50 mg by mouth once daily. calcium carbonate-vitamin D3 600 mg (1,500 mg)-800 unit chew Take 1 tablet by mouth twice daily. Lactobacillus acidophilus 10 billion cell cap Take 1 capsule by mouth as needed. MULTIVITAMIN TAB Take one(1) tablet daily. conjugated estrogens (PREMARIN) vaginal cream Use 1 g vaginally two times a week. Use 1g vaginally every night for two weeks and then twice weekly after that.Use 0.5g in the vagina and then 0.5g around the vaginal opening (Patient not taking: No sig reported) methylcellulose (CITRUCEL ORAL) Take by mouth once daily. (Patient not taking: Reported on 09/14/2022) No current facility-administered medications for this visit. Objective BP 116/70 (BP Site: Right Arm, BP Position: Sitting, BP Cuff Size: Large Adult) Pulse 68 Resp 16 Wt 63 kg (139 lb) BMI 25.91 kg/m Physical Exam Constitutional: General: She is not in acute distress. Appearance: She is not ill-appearing. Cardiovascular: Rate and Rhythm: Normal rate and regular rhythm. Heart sounds: No murmur heard. No gallop. Pulmonary: Breath sounds: Normal breath sounds. Abdominal: Tenderness: There is no abdominal tenderness. Musculoskeletal: Right lower leg: No edema. Left lower leg: No edema. Neurological: Mental Status: She is alert. Gait: Gait normal. Assessment and Plan 1. Primary hypertension - ICD9: 401.9, ICD10: I10 (primary diagnosis) - good control - Continue current medication(s) - Do fasting labs previously ordered. - Goal of BP <130/80 2. Gastroesophageal reflux disease without esophagitis - ICD9: 530.81, ICD10: K21.9 - PANTOPRAZOLE 40 MG TABLET,DELAYED RELEASE 3. Chappell's esophagus without dysplasia - ICD9: 530.85, ICD10: K22.70 She will schedule with GI. - PANTOPRAZOLE 40 MG TABLET,DELAYED RELEASE 4. Anxiety about health - ICD9: 300.09, ICD10: F41.8 Refilled. - LORAZEPAM 1 MG TABLET 5. Hyperlipidemia, unspecified hyperlipidemia type - ICD9: 272.4, ICD10: E78.5 - good control - Continue current medication. Sammy Perez MD documented in this encounter [facility] 06-11-2022 History of Present illness Narrative This note was created using [employer]. Subjective Patient presents with: ER F/U: UTI & hyponatremia -[facility] 06/03/22 Petra Haro is a 76 year old female. She was seen 06/01 for dysuria, frequency, chills, and malaise. She was checked for Covid, flu, urinary tract infection. She was found to have significant hyponatremia. Urinalysis showed casts. She was instructed to hold hydrochlorothiazide, and repeat chemistry showed improving hyponatremia. Urine culture eventually grew enterococcus. By this time, she was not feeling much better so she went to the ER 06/03 with her lab results and was treated with nitrofurantoin and ondansetron for nausea. She was feeling much better. She called her biometric technician and was started on amlodipine to replace hydrochlorothiazide. Her home BP readings were better than the readings here today. The etiology of hyponatremia was not clear. She had no excessive thirst or fluid intake. Medications had not changed, and she had no weight gain or fluid retention. She had a history of red eye, and she had been taking an antibiotic eye drop as needed. Review of Systems Constitutional: Negative for appetite change, chills, fever and unexpected weight change. Respiratory: Negative for shortness of breath. Cardiovascular: Negative for leg swelling. Gastrointestinal: Negative. Endocrine: Negative for polydipsia and polyuria. Genitourinary: Negative. Neurological: Negative. ACTIVE PROBLEM LIST Lichen Planus Osteopenia Obsessive-Compulsive Disorder Irritable Bowel Syndrome Esophageal Reflux Hyperlipemia Headache(784.0) Vitamin D Deficiency Insomnia, Persistent Chappell Esophagus Htn (Hypertension) Raynaud Phenomenon Low Back Pain, Non-Specific Hypokalemia Anxiety About Health Arthritis of Left Knee Current Outpatient Medications Medication Sig ondansetron orally disintegrating (ZOFRAN ODT) 4 mg disintegrating tablet Take 1 tablet by mouth every 6 hours as needed for nausea/vomiting. losartan (COZAAR) 100 mg tablet Take 1 tablet by mouth once daily. Per Dr. Carter. LORazepam (ATIVAN) 1 mg tablet Take 1 tablet by mouth daily at bedtime for 180 days. FLUoxetine (PROZAC) 40 mg capsule Take 1 capsule by mouth once daily. simvastatin (ZOCOR) 40 mg tablet Take 1 tablet by mouth daily at bedtime. pantoprazole DR (PROTONIX) 40 mg tablet Take 1 tablet by mouth twice daily. metoprolol succinate ER (TOPROL XL) 50 mg 24 hr tablet Take 50 mg by mouth once daily. methylcellulose (CITRUCEL ORAL) Take by mouth once daily. calcium carbonate-vitamin D3 600 mg (1,500 mg)-800 unit chew Take 1 tablet by mouth twice daily. Lactobacillus acidophilus 10 billion cell cap Take 1 capsule by mouth as needed. MULTIVITAMIN TAB Take one(1) tablet daily. amLODIPine (NORVASC) 5 mg tablet Take 5 mg by mouth once daily. conjugated estrogens (PREMARIN) vaginal cream Use 1 g vaginally two times a week. Use 1g vaginally every night for two weeks and then twice weekly after that.Use 0.5g in the vagina and then 0.5g around the vaginal opening (Patient not taking: No sig reported) No current facility-administered medications for this visit. Objective BP 144/82 Pulse 81 Temp 36.1 C (97 F) (Temporal) Resp 16 Wt 62.8 kg (138 lb 8 oz) SpO2 98% BMI 25.82 kg/m Physical Exam Constitutional: General: She is not in acute distress. Appearance: She is not ill-appearing. Eyes: Conjunctiva/sclera: Conjunctivae normal. Cardiovascular: Rate and Rhythm: Normal rate and regular rhythm. Heart sounds: No murmur heard. No gallop. Pulmonary: Breath sounds: Normal breath sounds. No wheezing or rales. Abdominal: Tenderness: There is no abdominal tenderness. Musculoskeletal: Right lower leg: No edema. Left lower leg: No edema. Neurological: Mental Status: She is alert. Gait: Gait normal. Test results pertinent to today's visit were reviewed and discussed with the patient. Assessment and Plan 1. Urinary tract infection without hematuria, site unspecified - ICD9: 599.0, ICD10: N39.0 (primary diagnosis) Resolved, treated. 2. Urinary frequency - ICD9: 788.41, ICD10: R35.0 Resolving 3. Hyponatremia - ICD9: 276.1, ICD10: E87.1 Recheck labs today. - COMP METABOLIC PANEL - OSMOLALITY BLD 4. Primary hypertension - ICD9: 401.9, ICD10: I10 - fair control Per cardiology. 5. Redness, eye - ICD9: 379.93, ICD10: H57.89 I suggested treatment for dry eye syndrome. She indicated her eye examinations are done regularly. I was not comfortable prescribing antibiotic eye drops for as needed use. Sammy Perez MD documented in this encounter [facility] 06-07-2022 Miscellaneous Notes Pt called and is notified of providers results and instructions. Pt voices understanding. Pt scheduled with Dr Perez 06/11/22. Santana Wu RN Please let the patient know her sodium is still low however higher than previous which is good. Continue to hold HCTZ for now. Her blood counts have normalized. Please schedule ER follow-up for this week Emily Crews APRN.LILA Patient calls to let provider know that after VV on 06/02/2022 that she did start feeling worse so she went to [facility] ED and is being treated for UTI with Macrobid twice daily for 5 days . Patient reports that she will come in and have CBC completed once she is done with antibiotic and feeling a little bit better. Libby Diaz RN documented in this encounter [facility] 06-02-2022 History of Present illness Narrative This Team Access Model visit is a phone encounter. It required patient-provider interaction for the medical decision making as documented below. Patient agrees to the visit: Yes Patient Location: [place] CC: Patient presents with: Follow Up HPI Petra Haro is a 76 year old female who is contacted today for a phone visit. This is an established patient of Dr. Sammy Perez MD. Patient was seen yesterday with complaint of malaise, fatigue, weakness, nausea, dysuria and urinary frequency. COVID, influenza and urinalysis negative. CBC showed elevated WBC count and BMP showed Na 122. Patient was instructed to hold HCTZ and increase salt intake. Today she reports no change in symptoms. No new or worsening symptoms. Zofran is helping with nausea. She has been eating saltines and drinking plenty of water. Denies confusion, disorientation, headache, vomiting, diarrhea, dizziness, lightheadedness, feeling faint, syncope. She lives with her who is able to keep an eye on her. REVIEW OF SYSTEMS See HPI PAST MEDICAL HISTORY Diagnosis Date Acquired musculoskeletal deformity of other specified site Acute pancreatitis Arthritis 2010 in fingers/hands Arthritis of left knee 03/17/2022 Dr. 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 Irritable bowel syndrome Knee pain, left 06/21/2011 Lichen planus Low back pain, non-specific 06/13/2017 Injections as needed, Dr. Skylar Martinez. Obsessive-compulsive disorders Osteopenia 02/02/2006 Prolapse of anterior vaginal wall 10/30/2012 PAST SURGICAL HISTORY Procedure Laterality Date ARTHROSCOPY KNEE SUBCHONDROPLAST Left 04/24/2017 Dr. Tashi Dominguez COLONOSCOPY 09/12 repeat 5-10 years COLONOSCOPY FLX DX W/COLLJ SPEC WHEN PFRMD 06/13/2013 Colonoscopy EGD TRANSORAL BIOPSY SINGLE/MULTIPLE 07/24/08 EGD W W/O BRUSH WASH 03/03/2017 ESOPHAGOGASTRODUODENOSCOPY TRANSORAL DIAGNOSTIC 02/10/2011 EGD ESOPHAGOGASTRODUODENOSCOPY TRANSORAL DIAGNOSTIC 06/13/2013 EGD repeat 2 years ESOPHAGOGASTRODUODENOSCOPY TRANSORAL DIAGNOSTIC 04/24/2015 EGD PAST SURGICAL HISTORY OF 1993 BLADDER REPAIR PAST SURGICAL HISTORY OF 01/11 benign right breast biopsy PAST SURGICAL HISTORY OF 04/17; 07/19 cataract surgery TONSILLECTOMY PRIMARY/SECONDARY <AGE 10 1950 Tonsillectomy TOTAL ABDOMINAL HYSTERECT W/WO RMVL TUBE OVARY 1993 Hysterectomy, [facility] [employer] Patient has no known allergies. MEDICATIONS ondansetron orally disintegrating (ZOFRAN ODT) 4 mg disintegrating tablet Take 1 tablet by mouth every 6 hours as needed for nausea/vomiting. simvastatin (ZOCOR) 40 mg tablet Take 40 mg by mouth daily at bedtime. losartan (COZAAR) 100 mg tablet Take 1 tablet by mouth once daily. Per Dr. Carter. hydroCHLOROthiazide (HYDRODIURIL, ESIDRIX) 25 mg tablet Take 1 tablet by mouth once daily. Per Dr. Carter. LORazepam (ATIVAN) 1 mg tablet Take 1 tablet by mouth daily at bedtime for 180 days. FLUoxetine (PROZAC) 40 mg capsule Take 1 capsule by mouth once daily. simvastatin (ZOCOR) 40 mg tablet Take 1 tablet by mouth daily at bedtime. pantoprazole DR (PROTONIX) 40 mg tablet Take 1 tablet by mouth twice daily. conjugated estrogens (PREMARIN) vaginal cream Use 1 g vaginally two times a week. Use 1g vaginally every night for two weeks and then twice weekly after that.Use 0.5g in the vagina and then 0.5g around the vaginal opening (Patient not taking: Reported on 04/29/2022) METOPROLOL SUCCINATE ORAL Take 50 mg by mouth once daily. methylcellulose (CITRUCEL ORAL) Take by mouth once daily. calcium carbonate-vitamin D3 600 mg (1,500 mg)-800 unit chew Take 1 tablet by mouth twice daily. Lactobacillus acidophilus 10 billion cell cap Take 1 capsule by mouth as needed. MULTIVITAMIN TAB Take one(1) tablet daily. FAMILY HISTORY Problem Relation Age of Onset Emphysema Mother Osteoporosis Mother Heart Father Emphysema Father other (cva) Maternal Grandfather Breast Cancer Maternal Aunt other (hiatial hernia) Maternal Aunt mother, both maternal grandparents Social History Tobacco Use Smoking status: Former Types: Cigarettes Quit date: 09/22/1990 Years since quittin.7 Smokeless tobacco: Never Vaping Use Vaping Use: Never used Substance Use Topics Alcohol use: Not Currently Alcohol/week: 17.5 standard drinks Types: 7 Glasses of Wine (5oz) per week Comment: occasionally wine Drug use: No EXAM: Deferred physical exam as visit was completed over the phone Patient is speaking in complete sentences without obvious respiratory distress or audible wheezing. DATA REVIEWED: Most recent labs ASSESSMENT/PLAN: 1. Hyponatremia - ICD9: 276.1, ICD10: E87.1 (primary diagnosis) No new or worsening symptoms. Patient is stable. Continue to hold HCTZ. Limit free water and replace with Gatorade or other electrolyte replacement drink. Increase salt intake. Recheck labs on Tuesday. To ER or call 911 for any worsening symptoms. 2. Leukocytosis, unspecified type - ICD9: 288.60, ICD10: D72.829 Etiology unclear. Recheck Tuesday. - CBC + DIFF 3. Malaise - ICD9: 780.79, ICD10: R53.81 As above 4. Nausea - ICD9: 787.02, ICD10: R11.0 As above Prescription instructions reviewed with patient as applicable. Potential red flag symptoms discussed with the patient. Reviewed appropriate action plan to take if red flag symptoms occur. Patient agreeable to treatment plan. During this patient visit I have spent approximately 15 minutes in counseling regarding treatment options, medications, test results, and coordinating care. Emily Crews APRN.CNP documented in this encounter [facility] 06-01-2022 Miscellaneous Notes Patient notified and verbalized understanding. Goran Wan Ma Please call patient and make sure she reads her My Chart message with results of today's labs Emily Crews APRN.CNP documented in this encounter [facility] 05-31-2022 Miscellaneous Notes Patient calling with urinary symptoms x couple of days. Reviewed triage protocol guidelines with patient. Verbalized understanding. Disposition: See PCP within 24 hours. Appointment scheduled. Peggy Allen RN Reason for Disposition Urinating more frequently than usual (i.e., frequency) Answer Assessment - Initial Assessment Questions 1. SYMPTOM: frequency, lower abdominal pressure, feeling hot and cold 2. ONSET: couple of days ago 3. PAIN: mild lower abdominal pressure 4. CAUSE: possible UTI 5. OTHER SYMPTOMS: Denies fever, flank pain, blood in urine, pain with urination 6. : NO Protocols used: Urinary [id number] documented in this encounter [facility] 04-29-2022 History of Present illness Narrative This note was created using [employer]. Subjective Patient presents with: ED Follow-up: Removal of sutures on left elbow Petra Haro is a 76 year old female who fell and had left elbow laceration sutured in the ER 04/11/22. This was well healed. Her hypertension medications were adjusted by her biometric technician. Review of Systems Constitutional: Negative. ACTIVE PROBLEM LIST Lichen Planus Osteopenia Obsessive-Compulsive Disorder Irritable Bowel Syndrome Esophageal Reflux Hyperlipemia Headache(784.0) Vitamin D Deficiency Insomnia, Persistent Chappell Esophagus Htn (Hypertension) Raynaud Phenomenon Low Back Pain, Non-Specific Hypokalemia Anxiety About Health Arthritis of Left Knee Current Outpatient Medications Medication Sig simvastatin (ZOCOR) 40 mg tablet Take 40 mg by mouth daily at bedtime. LORazepam (ATIVAN) 1 mg tablet Take 1 tablet by mouth daily at bedtime for 180 days. FLUoxetine (PROZAC) 40 mg capsule Take 1 capsule by mouth once daily. simvastatin (ZOCOR) 40 mg tablet Take 1 tablet by mouth daily at bedtime. pantoprazole DR (PROTONIX) 40 mg tablet Take 1 tablet by mouth twice daily. METOPROLOL SUCCINATE ORAL Take 50 mg by mouth once daily. calcium carbonate-vitamin D3 600 mg (1,500 mg)-800 unit chew Take 1 tablet by mouth twice daily. Lactobacillus acidophilus 10 billion cell cap Take 1 capsule by mouth as needed. MULTIVITAMIN TAB Take one(1) tablet daily. losartan (COZAAR) 100 mg tablet Take 1 tablet by mouth once daily. Per Dr. Carter. hydroCHLOROthiazide (HYDRODIURIL, ESIDRIX) 25 mg tablet Take 1 tablet by mouth once daily. Per Dr. Carter. conjugated estrogens (PREMARIN) vaginal cream Use 1 g vaginally two times a week. Use 1g vaginally every night for two weeks and then twice weekly after that.Use 0.5g in the vagina and then 0.5g around the vaginal opening (Patient not taking: Reported on 04/29/2022) ondansetron orally disintegrating (ZOFRAN ODT) 4 mg disintegrating tablet Take 1 tablet by mouth every 6 hours as needed for nausea/vomiting. (Patient not taking: Reported on 04/29/2022) methylcellulose (CITRUCEL ORAL) Take by mouth once daily. No current facility-administered medications for this visit. Objective BP 146/72 (BP Site: Right Arm, BP Position: Sitting, BP Cuff Size: Regular Adult) Pulse 72 Temp 36.2 C (97.2 F) Resp 16 Wt 64 kg (141 lb) SpO2 96% BMI 26.28 kg/m Physical Exam Musculoskeletal: Left elbow: Normal range of motion. No tenderness. Comments: Healed 4.5 cm laceration. Mild swelling. Sutures intact. Assessment and Plan 1. Visit for suture removal - ICD9: V58.32, ICD10: Z48.02 (primary diagnosis) All 13 sutures removed. No drainage or bleeding noted. Patient tolerated this very well. 2. Primary hypertension - ICD9: 401.9, ICD10: I10 Per cardiology. - LOSARTAN 100 MG TABLET - HYDROCHLOROTHIAZIDE 25 MG TABLET Sammy Perez MD documented in this encounter [facility] 04-14-2022 Miscellaneous Notes I agree. Pt's Marina called to report pt just fell, has a laceration on left elbow. Marina states it appears to be deep. Pt also lightly hit her head but Marina states they are not concerned about that since it was light. Marina asking if pt should be seen in ED or if someone here at that clinic could see her. Marina was instructed to have pt evaluated in ED, marina states understanding. Ana Dietz LPN documented in this encounter [facility] 04-09-2022 Miscellaneous Notes Pharmacy verified in [facility] Patient has been identified by name and date of : Yes Patient aware RX will be sent to pharmacy. No need to notify patient. Patient phones for refill(s): Requested Prescriptions Pending Prescriptions Disp Refills LORazepam (ATIVAN) 1 mg tablet 90 tablet 1 Sig: Take 1 tablet by mouth daily at bedtime for 180 days. Date of last office visit : 03/17/2022 Date of next office visit : 09/14/2022 Last 2 Encounter Wt Readings: Date: Wt: 03/17/2022 63.5 kg (140 lb) 11/02/2021 64 kg (141 lb) Please advise. Edith Segura Pss documented in this encounter [facility] 03-17-2022 History of Present illness Narrative This note was created using [employer]. Subjective Patient presents with: F/U 6 months Immunizations: Flu vaccination Petra Haro is a 76 year old female. Her hypertension was not at goal. Her biometric technician switched medications due to edema from amlodipine. She sees Dr. Dominguez for knee injections of the left. This last one did not have noticeable duration. Review of Systems Constitutional: Negative. Respiratory: Negative. Cardiovascular: Negative. Gastrointestinal: Negative. Musculoskeletal: Positive for arthralgias. Neurological: Negative. ACTIVE PROBLEM LIST Lichen Planus Osteopenia Obsessive-Compulsive Disorder Irritable Bowel Syndrome Esophageal Reflux Hyperlipemia Headache(784.0) Vitamin D Deficiency Insomnia, Persistent Chappell Esophagus Htn (Hypertension) Raynaud Phenomenon Low Back Pain, Non-Specific Hypokalemia Anxiety About Health Current Outpatient Medications Medication Sig losartan (COZAAR) 50 mg tablet Take 50 mg by mouth once daily. pantoprazole DR (PROTONIX) 40 mg tablet Take 1 tablet by mouth twice daily. LORazepam (ATIVAN) 1 mg tablet Take 1 tablet by mouth daily at bedtime for 180 days. conjugated estrogens (PREMARIN) vaginal cream Use 1 g vaginally two times a week. Use 1g vaginally every night for two weeks and then twice weekly after that.Use 0.5g in the vagina and then 0.5g around the vaginal opening simvastatin (ZOCOR) 40 mg tablet Take 1 tablet by mouth daily at bedtime. FLUoxetine HCl (PROZAC) 40 mg capsule Take 1 capsule by mouth once daily. METOPROLOL SUCCINATE ORAL Take 50 mg by mouth once daily. ondansetron orally disintegrating (ZOFRAN ODT) 4 mg disintegrating tablet Take 1 tablet by mouth every 6 hours as needed for nausea/vomiting. methylcellulose (CITRUCEL ORAL) Take by mouth once daily. calcium carbonate-vitamin D3 600 mg (1,500 mg)-800 unit chew Take 1 tablet by mouth twice daily. Lactobacillus acidophilus 10 billion cell cap Take 1 capsule by mouth as needed. MULTIVITAMIN TAB Take one(1) tablet daily. amLODIPine (NORVASC) 10 mg tablet Take 1 tablet by mouth once daily. (Patient not taking: Reported on 03/17/2022) potassium chloride SR (MICRO-K) 8 mEq cpER Take 1 capsule by mouth daily with breakfast. (Patient not taking: Reported on 03/17/2022) No current facility-administered medications for this visit. Objective BP 149/77 (BP Site: Left Arm, BP Position: Sitting, BP Cuff Size: Large Adult) Pulse 63 Temp 36.2 C (97.2 F) (Temporal) Resp 16 Wt 63.5 kg (140 lb) BMI 26.09 kg/m Physical Exam Constitutional: Appearance: Normal appearance. Cardiovascular: Rate and Rhythm: Normal rate and regular rhythm. Heart sounds: No murmur heard. No gallop. Pulmonary: Breath sounds: Normal breath sounds. Musculoskeletal: General: No swelling or deformity. Right lower leg: No edema. Left lower leg: No edema. Neurological: Mental Status: She is alert. Assessment and Plan 1. Primary hypertension - ICD9: 401.9, ICD10: I10 (primary diagnosis) - suboptimal control - LOSARTAN 50 MG TABLET. Add this every PM to the AM dose. Further refills will be from her biometric technician whom she will see later this month. - CBC 2. Need for influenza vaccination - ICD9: V04.81, ICD10: Z23 - INFLUENZA SEASONAL QUADRIVALENT HIGH DOSE AGE 65+ 3. Hyperlipidemia, unspecified hyperlipidemia type - ICD9: 272.4, ICD10: E78.5 - good control - Continue current medication. - SIMVASTATIN 40 MG TABLET - LIPID PANEL BASIC - COMP METABOLIC PANEL - LIPID PANEL BASIC 4. Need for vaccination - ICD9: V05.9, ICD10: Z23 - PNEUMOCOCCAL VACCINE (PREVNAR 20) 5. Arthritis of left knee - ICD9: 716.96, ICD10: M17.12 Take over the counter ALEVE 220 MG twice daily if needed. Discussed medication dosage, usage, goals of therapy, and side effects. 6. Anxiety about health - ICD9: 300.09, ICD10: F41.8 Controlled. Refilled. - FLUOXETINE 40 MG CAPSULE Sammy Perez MD documented in this encounter [facility] 12-28-2021 History of Present illness Narrative Episode Visit Count: 9 Therapist That Will Oversee The Plan Of Care: Gissel Shea Start of Care Date: 09/28/21 Onset Date: 08/31/21 Plan of Care Certification Date: 11/30/21 Next Certification Due Date: 01/12/22 Patient Identified by Name and Date of : Yes REHABILITATION AND [facility]ORTS THERAPY PHYSICAL THERAPY DISCONTINUANCE OF CARE PLAN OF CARE UPDATE: Assessment: Petra Haro is discontinued from Physical Therapy services due to goal achievement and maximal benefit.. Patient was seen for 9 visits from Start of Care Date: 09/28/21 to 12/28/2021 and treatment included: Therapeutic exercise, Neuromuscular re-education, Self-residential management and Patient/Family/Caregiver Education. Goals for Episode of Care: created on 09/28/21 through 12/07/21 updated 12/01/21 Patient will report no falls./ achieved Improve score on 30 Second Chair Stand to 12 repetitions to reflect decreased fall risk./ achieved [place] in home exercise program including cardiovascular exercise /achieved Patient Goals: feel more steady with walking, not so frightened/ achieved SUBJECTIVE: Patient Reason for Visit: Pt notes that she feels she is walking better and is more confident. Understands importance of exercise towards maintaining improvements. Pain: Pain Pain Level: 5 Pain Location: Knee - Left Post Treatment Pain Post Treatment Pain Level: No Change PROMIS Scales Higher is Better 11/08/2021 12/11/2021 12/18/2021 Phys Func - Score 41 (mild dysfunction) 46 (within normal limits) - Phys Func - Percentile 18 % 34 % - Social Roles - Score 48 (within normal limits) 46 (within normal limits) - Social Role - Percentile 42 % 34 % - GH Physical - Score - - 47.7 (Good) GH Physical - Percentile - - 41 % GH Mental - Score - - 50.8 (Very Good) GH Mental - Percentile - - 53 % Self-Eff Symptom - Score 44 (Average) 44 (Average) - Self-Eff Symptom - Percentile 27 % 27 % - T-scores: mean of general population = 50. 5 points is clinically meaningfully difference Percentiles provide an indication of how the patient's score ranks in relation to the general population. Higher percentile rankings indicate better function/quality of life. 50th percentile is the average of the general population and indicates half of respondents had a worse score. Lower is Better 09/25/2021 11/08/2021 12/11/2021 Fatigue - Score 50 (within normal limits) 48 (within normal limits) 48 (within normal limits) Fatigue - Percentile 50 % 58 % 58 % T-scores: mean of general population = 50. 5 points is clinically meaningfully difference Percentiles provide an indication of how the patient's score ranks in relation to the general population. Higher percentile rankings indicate better function/quality of life. 50th percentile is the average of the general population and indicates half of respondents had a worse score. OBJECTIVE MEASURES WITH LEVEL OF FUNCTION: LE Strength R LE Strength: 5/5 L LE Strength: 5/5 Mobility Supine To Sit: Independent Sit To Stand: Independent Gait Weight Bearing Status: FWB Gait Device: None Gait Observation: no deviations Functional Performance Test Results 30 Second Chair Stand Test: 14 reps Timed Up and Go (sec): 8 sec 4 Stage Balance Test Narrow base of support (sec): 30 sec Tandem base of support (sec): 30 sec Functional Reach - Stand Functional Reach Stand - Right (inches): 12 in Tinetti Assessment Tool Sitting balance: 1- Steady, safe Rises from chair: 2- Able without use of arms Attempts to rise: 2- Able to rise, 1 attempt Immediate standin- Steady without walker or other support Standing balance: 2- Narrow stance without support Nudged: 2- Stead Eyes closed: 1- Steady Turning 360 Continuous: 1- Continuous Turning 360 Steady: 1- Steady Sitting down: 2- Safe, smooth motion Balance Score (calculated): 16 Indication of gait: 1- No hesitancy R Step length and height: 1- Step through R L Step length and height: 1- Step through L R Foot clearance: 1- R foot clears L Foot clearance: 1- L foot clears Step symmetry: 1- R and L step length appear equal Step continuity: 1- Steps appear continuous Path: 2- Straight without aid Trunk: 2- No sway, flex or use of arms or aid Walk Time: 1- Heels amost touching while walking Gait Score (calculated): 12 Tinetti Assessment Tool Total Score (calculated): 28 Fall Risk:: > or equal to 24: Low Fall Risk TREATMENT: Neuromuscular Re-Education: 1: balance board ant/ post and lateral in paralel bars 2: step taps to doam of BOSU 2x10 3: standing on airx paloff and stir the pot 1x10 each 4: standing on air x head turns 5: tandem walking in parallel bars 6: 6 hurdles reciprocal and sidestepping in parallel bars 7: 3 point step taps alternating feet, box step, cross body taps 8: wall falls 1x10 9: stepping lateral up and over air x 1x10 10: walking in hallway with marching head turns and ball toss side to side 11: blue balance beam side stepping short side down 12: tandem walking on balance beam blue short side down 13: walking in hallway with s curves, moving tennis ball from right to left hands 30'x2 14: hallway walking st. line with head turns and moving tennis ball from right to left hands. 15: eyes closed NBOS standing, standing with NBOS with perturbations Skilled Intervention: Skilled judgment used to assess appropriate program for balance and coordination activity. Education in proprioceptive/kinesthetic awareness during dynamic activities. Insured patient safety with use of gait belt Billing Neuromuscular Re-Education Treatment Minutes: 40 Total Treatment Time Minutes (timed/untimed): 40 Gissel Shea PT documented in this encounter [facility] 12-08-2021 History of Present illness Narrative Episode Visit Count: 6 Therapist That Will Oversee The Plan Of Care: Gissel Shea Start of Care Date: 09/28/21 Onset Date: 08/31/21 Plan of Care Certification Date: 11/30/21 Next Certification Due Date: 01/12/22 Patient Identified by Name and Date of : Yes REHABILITATION AND SPORTS THERAPY PHYSICAL THERAPY TREATMENT NOTE ASSESSMENT: Petra Haro tolerated the session with no issues. She demonstrated improvements in tandem stance and hurdles . The patient will continue to benefit from ongoing skilled physical therapy to progress toward set goals. PLAN FOR NEXT VISIT: continue to work on change of directions front back side to side and turns SUBJECTIVE: Patient Reason for Visit: Pt notes that she is doing well. Notes that she had trouble after last visit with swelling in ankle from BP meds. They have been adjusted. pt notes that she feels most unstable when she is moving quickly and changing directions Pain: OBJECTIVE MEASURES WITH LEVEL OF FUNCTION: Good control with NBOS and eyes closed TREATMENT: Neuromuscular Re-Education: 1: balance board ant/ post and lateral in paralel bars 2: step taps to doam of BOSU 2x10 3: standing on airx paloff and stir the pot 1x10 each 4: standing on air x head turns 5: tandem walking in parallel bars 6: 6 hurdles reciprocal and sidestepping in parallel bars 7: 3 point step taps alternating feet 8: wall falls 1x10 9: marching steps slowly with parallel bar assist 10: walking in hallway with marching head turns and ball toss side to side 11: blue balance beam side stepping short side down 12: tandem walking on balance beam blue short side down 13: walking in hallway with s curves, moving tennis ball from right to left hands 30'x2 14: hallway walking st. line with head turns and moving tennis ball from right to left hands. 15: eyes closed NBOS standing, standing with NBOS with perturbations Skilled Intervention: Skilled judgment used to assess appropriate program for balance and coordination activity. Education in proprioceptive/kinesthetic awareness during dynamic activities. Insured patient safety with use of parallel bars and gait belt Billing Neuromuscular Re-Education Treatment Minutes: 38 Total Treatment Time Minutes (timed/untimed): 38 Gissel Shea PT documented in this encounter [facility] 12-01-2021 History of Present illness Narrative Episode Visit Count: 5 Therapist That Will Oversee The Plan Of Care: Gissel Shea Start of Care Date: 09/28/21 Onset Date: 08/31/21 Plan of Care Certification Date: 11/30/21 Next Certification Due Date: 01/12/22 Patient Identified by Name and Date of : Yes REHABILITATION AND SPORTS THERAPY PHYSICAL THERAPY PROGRESS REPORT PLAN OF CARE UPDATE: Assessment: Petra Haro demonstrates moderate improvement in balance and physical activities. She hasprogressed toward goals. Patient continues to present with impairments in balance and independence in exercise that interfere with confidence with walking particularly in crowds and uneven surfaces . Current prognosis is excellent . She will benefit from continued skilled therapy services to meet the updated goals for this plan of care as noted below. Goals for Episode of Care: created on 09/28/21 through 12/07/21 updated 12/01/21 Patient will report no falls./ achieved Improve score on 30 Second Chair Stand to 12 repetitions to reflect decreased fall risk./ partially achieved [place] in home exercise program including cardiovascular exercise.partially achieved Patient Goals: feel more steady with walking, not so frightened/ partially achieved Planned Interventions, Frequency, and Duration: 1x/week, 4 weeks Total Number of Visits Planned: 4 Patient to be seen for Neuromuscular re-education ([id number]);Therapeutic exercise ([id number]);Self-residential management ([id number]) PLAN FOR NEXT VISIT: Continue with high level balance activities SUBJECTIVE: Patient Reason for Visit: Pt states that she is doing well. Pt notes that she does somewhat more confident. Pt notes that she would not feel as comfortable walking in a crowded environment. Pain: Pain Pain Level: 0 Pain Location: Knee - Left Frequency: Intermittent Post Treatment Pain Post Treatment Pain Level: No Change PROMIS Scales Higher is Better 01/29/2021 09/25/2021 11/08/2021 Phys Func - Score - 42 (mild dysfunction) 41 (mild dysfunction) Phys Func - Percentile - 21 % 18 % Social Roles - Score - 52 (within normal limits) 48 (within normal limits) Social Role - Percentile - 58 % 42 % GH Physical - Score 42.3 (Good) 47.7 (Good) - GH Physical - Percentile 22 % 41 % - GH Mental - Score 53.3 (Very Good) 50.8 (Very Good) - GH Mental - Percentile 63 % 53 % - Self-Eff Symptom - Score - 44 (Average) 44 (Average) Self-Eff Symptom - Percentile - 27 % 27 % T-scores: mean of general population = 50. 5 points is clinically meaningfully difference Percentiles provide an indication of how the patient's score ranks in relation to the general population. Higher percentile rankings indicate better function/quality of life. 50th percentile is the average of the general population and indicates half of respondents had a worse score. Lower is Better 09/25/2021 11/08/2021 Fatigue - Score 50 (within normal limits) 48 (within normal limits) Fatigue - Percentile 50 % 58 % T-scores: mean of general population = 50. 5 points is clinically meaningfully difference Percentiles provide an indication of how the patient's score ranks in relation to the general population. Higher percentile rankings indicate better function/quality of life. 50th percentile is the average of the general population and indicates half of respondents had a worse score. OBJECTIVE MEASURES WITH LEVEL OF FUNCTION: Mobility Sit To Stand: Independent Gait Weight Bearing Status: FWB Gait Device: None Functional Performance Test Results 30 Second Chair Stand Test: 11 reps Timed Up and Go (sec): 8 sec 4 Stage Balance Test Narrow base of support (sec): 20 sec Semi-tandem base of support (sec): 20 sec Tandem base of support (sec): 20 sec Functional Reach - Stand Functional Reach Stand - Right (inches): 11 in Tinetti Assessment Tool Sitting balance: 1- Steady, safe Rises from chair: 2- Able without use of arms Attempts to rise: 2- Able to rise, 1 attempt Immediate standin- Steady without walker or other support Standing balance: 2- Narrow stance without support Nudged: 2- Stead Eyes closed: 1- Steady Turning 360 Continuous: 1- Continuous Turning 360 Steady: 1- Steady Sitting down: 2- Safe, smooth motion Balance Score (calculated): 16 Indication of gait: 1- No hesitancy R Step length and height: 1- Step through R L Step length and height: 1- Step through L R Foot clearance: 1- R foot clears L Foot clearance: 1- L foot clears Step symmetry: 1- R and L step length appear equal Path: 2- Straight without aid Trunk: 2- No sway, flex or use of arms or aid Walk Time: 1- Heels amost touching while walking Gait Score (calculated): 11 Tinetti Assessment Tool Total Score (calculated): 27 Fall Risk:: > or equal to 24: Low Fall Risk TREATMENT: Neuromuscular Re-Education: 1: balance board ant/ post and lateral in paralel bars 2: step taps to doam of BOSU 2x10 3: standing on airx paloff and stir the pot 1x10 each 4: standing on air x head turns 5: tandem walking in parallel bars 6: 6 hurdles reciprocal and sidestepping in parallel bars 7: 3 point step taps alternating feet 8: wall falls 1x10 9: marching steps slowly with parallel bar assist 10: walking in hallway with marching head turns and ball toss side to side 11: blue balance beam side stepping short side down 12: tandem walking on balance beam blue short side down 13: walking in hallway with s curves, moving tennis ball from right to left hands 30'x2 14: hallway walking st. line with head turns and moving tennis ball from right to left hands. 15: blue step ups to foam air x 1x10 B Skilled Intervention: Skilled judgment used to assess appropriate program for balance and coordination activity. Education in proprioceptive/kinesthetic awareness during dynamic activities. Insured patient safety with use of parallel bars and gait belt Billing Neuromuscular Re-Education Treatment Minutes: 40 Total Treatment Time Minutes (timed/untimed): 40 Gissel Shea PT documented in this encounter [facility] 11-27-2021 Miscellaneous Notes Patient was originally scheduled for EGD at [facility] with Tolu 01/05. Per patient wanted to be rescheduled and is now on for 02/09 with follow up being 02/16 Leeann, Can you please call patient to follow up with EGD and Colonoscopy. Thanks Mayra Patient calls in to cancel EGD on 01/05/2022 and follow up with Mayra Rico on 01/19 d/t having extensive dental work done and won't be ready at that time for the procedure. Patient asking to reschedule EGD for end of January or early February. Libby Diaz RN Patient is scheduled at [facility] on 01/05/[address] Hunter for EGD. DX: Chappell's esophagus without dysplasia [K22.70 (ICD-10-CM)] Verbal and written instructions given. documented in this encounter [facility] 11-23-2021 History of Present illness Narrative Episode Visit Count: 4 Therapist That Will Oversee The Plan Of Care: Gissel Shea Start of Care Date: 09/28/21 Onset Date: 08/31/21 Plan of Care Certification Date: 09/28/21 Next Certification Due Date: 12/07/21 Patient Identified by Name and Date of : Yes REHABILITATION AND SPORTS THERAPY PHYSICAL THERAPY TREATMENT NOTE ASSESSMENT: Petra Haro tolerated the session with no issues. She demonstrated difficulty with hallway walking with 2nd and 3rd tasks Better with use of blue foam balance beam . The patient will continue to benefit from ongoing skilled physical therapy to progress toward set goals. PLAN FOR NEXT VISIT: add walking with sayling letters of name backwards. Continue balance SUBJECTIVE: Patient Reason for Visit: Pt reports not issues following last session. Had gum skin graft last Tue Pain: Pain Pain Level: 0 Pain Location: Knee - Left Frequency: Intermittent OBJECTIVE MEASURES WITH LEVEL OF FUNCTION: eyes closed NBOS with mild sway TREATMENT: Neuromuscular Re-Education: 1: balance board ant/ post and lateral in paralel bars 2: step taps to doam of BOSU 2x10 3: standing on airx paloff and stir the pot 1x10 each 4: standing on air x head turns 5: tandem walking in parallel bars 6: 6 hurdles reciprocal and sidestepping in parallel bars 7: 3 point step taps alternating feet 8: wall falls 1x10 9: marching steps slowly with parallel bar assist 10: backwards walking with cues for larger strides 11: blue balance beam side stepping short side down 12: tandem walking on balance beam blue short side down 13: walking in hallway with s curves, moving tennis ball from right to left hands 30'x2 14: hallway walking st. line with head turns and moving tennis ball from right to left hands. 15: blue step ups to foam air x 1x10 B Skilled Intervention: Skilled judgment used to assess appropriate program for balance and coordination activity. Education in proprioceptive/kinesthetic awareness during dynamic activities. Insured patient safety with use of parallel bars and gait belt Billing Neuromuscular Re-Education Treatment Minutes: 38 Total Treatment Time Minutes (timed/untimed): 38 Gissel Shea PT documented in this encounter [facility] 11-16-2021 History of Present illness Narrative Episode Visit Count: 3 Therapist That Will Oversee The Plan Of Care: Gissel Shea Start of Care Date: 09/28/21 Onset Date: 08/31/21 Plan of Care Certification Date: 09/28/21 Next Certification Due Date: 12/07/21 Patient Identified by Name and Date of : Yes REHABILITATION AND SPORTS THERAPY PHYSICAL THERAPY TREATMENT NOTE ASSESSMENT: Petra Haro tolerated the session with no issues. She demonstrated difficulty with intermittent LOB with activities which required parallel bar assist . The patient will continue to benefit from ongoing skilled physical therapy to progress toward set goals. PLAN FOR NEXT VISIT: continue with balance SUBJECTIVE: Patient Reason for Visit: Pt notes that she did fine after last session , States that knees are feeling better but left hurts a little bit. Pain: Pain Pain Level: 0 (6/10 at times not today) Pain Location: Knee - Left Frequency: Intermittent Post Treatment Pain Post Treatment Pain Level: No Change OBJECTIVE MEASURES WITH LEVEL OF FUNCTION: most LOB with initiation of movements TREATMENT: Neuromuscular Re-Education: 1: balance board ant/ post and lateral in paralel bars 2: step taps to doam of BOSU 2x10 3: standing on airx paloff and stir the pot 1x10 each 4: standing on air x head turns 5: tandem walking in parallel bars 6: 6 hurdles reciprocal and sidestepping in parallel bars 7: 3 point step taps alternating feet 8: wall falls 1x10 9: marching steps slowly with parallel bar assist 10: backwards walking with cues for larger strides Skilled Intervention: Skilled judgment used to assess appropriate program for balance and coordination activity. Education in proprioceptive/kinesthetic awareness during dynamic activities. Insured patient safety with use of parallel bars and gait belt Billing Neuromuscular Re-Education Treatment Minutes: 32 Total Treatment Time Minutes (timed/untimed): 32 Gissel Shea PT documented in this encounter [facility] 11-09-2021 History of Present illness Narrative Episode Visit Count: 2 Therapist That Will Oversee The Plan Of Care: Gissel Shea Start of Care Date: 09/28/21 Onset Date: 08/31/21 Plan of Care Certification Date: 09/28/21 Next Certification Due Date: 12/07/21 Patient Identified by Name and Date of : Yes REHABILITATION AND SPORTS THERAPY PHYSICAL THERAPY TREATMENT NOTE ASSESSMENT: Petra Haro tolerated the session with no issues. She demonstrated improvements in steadiness with balance activities. The patient will continue to benefit from ongoing skilled physical therapy to progress toward set goals. PLAN FOR NEXT VISIT: continue to work on balance activities SUBJECTIVE: Patient Reason for Visit: Pt reports that she is doing ok and has not fallen. reports that she feels unsteady at times with leaning forward with gardening Pain: Pain Pain Level: (not quantified) Pain Location: Knee - Left OBJECTIVE MEASURES WITH LEVEL OF FUNCTION: more difficulty with balance anterior/ posterior TREATMENT: Therapeutic Exercise: 1: alternating hip flexion 1x10 2: leg extension 1x10 3: B ankle DF 1x10 4: B ankle PF 1x10 5: sit to stand 1x10 Skilled Intervention: Patient was educated in proper exercise technique and purpose for exercises. Skilled judgment was provided in selection of appropriate interventions. Provided written instruction for home exercise program to facilitate proper performance and compliance. Correct performance of therapeutic exercises was facilitated with verbal and visual cuing. Neuromuscular Re-Education: 1: balance board ant/ post and lateral in paralel bars 2: step taps to doam of BOSU 2x10 3: standing on airx paloff and stir the pot 1x10 each 4: standing on air x head turns 5: tandem walking in parallel bars 6: 6 hurdles reciprocal and sidestepping in parallel bars 7: 3 point step taps alternating feet 8: wall falls 1x10 9: stepping over and back lateral 2x4 Skilled Intervention: Skilled judgment used to assess appropriate program for balance and coordination activity. Education in proprioceptive/kinesthetic awareness during dynamic activities. Insured patient safety with use of gait belt and therapist guarding Home Exercise Program Assigned: 1: seated LE exs as above Billing Therapeutic Exercise Treatment Minutes: 20 Neuromuscular Re-Education Treatment Minutes: 25 Total Treatment Time Minutes (timed/untimed): 45 Gissel Shea PT documented in this encounter [facility] 11-02-2021 Miscellaneous Notes Addended by: HEMA QUARLES LPN on: 11/02/2021 02:28 PM Modules accepted: Orders documented in this encounter [facility] 11-02-2021 Instructions Mayra Rico APRN.CNP - 11/02/2021 1:48 PM EDT Your procedure will be with - The endoscopy staff will call you the day before the procedure with specific on arrival time. (Tuesday for Tuesday procedures). Due for Colonoscopy 06/2023 documented in this encounter [facility] 11-02-2021 History of Present illness Narrative CHIEF COMPLAINT: Patient presents with: egd: 3 year repeat needs ordered d/t Chappell's. Treats with protonix This consult was requested by Sammy Perez MD for an opinion regarding Chappell's . My final recommendations will be communicated to the requesting health care provider by way of the shared medical record for internal providers or letter via the [employer] for external providers. Petra Haro is a 76 year old female with a past medical history Chappell's esophagus, acute pancreatitis, diverticulosis of the colon, esophageal reflux, IBS, arthritis, OCD, osteopenia. Who presents for History of EGD :2008, 2010, 2012, 2014, 2016 History of colonoscopy: 2004, 2012 Last EGD 03/07/2019: FINAL DIAGNOSIS Esophagus, 34 cm, biopsy - Hyperplastic squamous esophageal mucosa with scattered intraepithelial eosinophils (focally up to approximately 3 eosinophils per high power field). - Inflamed gastric cardiofundic-type mucosa with reactive epithelial changes, see comment. - No intestinal metaplasia or epithelial dysplasia. Last colonoscopy 06/13/2013 one 5 mm polyp in the ascending colon-no significant pathologic change was found. HPI: Patient presents today for evaluation of Chappell's esophagus. Patient is due for EGD surveillance. Patient denies upper GI complaints - Pantoprazole 40mg twice daily this controls her symptoms well Record Review: [facility] / Outside records reviewed. PAST MEDICAL HISTORY Diagnosis Date Acquired musculoskeletal deformity of other specified site Acute pancreatitis Arthritis 2010 in fingers/hands Chappell esophagus 02/10/2011 Diaphragmatic hernia without mention of obstruction or gangrene Diverticulosis of colon (without mention of hemorrhage) Esophageal reflux Headache(784.0) 06/21/2006 chronic daily headaches. Irritable bowel syndrome Knee pain, left 06/21/2011 Lichen planus Low back pain, non-specific 06/13/2017 Injections as needed, Dr. Skylar Martinez. Obsessive-compulsive disorders Osteopenia 02/02/2006 Prolapse of anterior vaginal wall 10/30/2012 PAST SURGICAL HISTORY Procedure Laterality Date ARTHROSCOPY KNEE SUBCHONDROPLAST Left 04/24/2017 Dr. Tashi Dominguez COLONOSCOPY 09/12 repeat 5-10 years COLONOSCOPY FLX DX W/COLLJ SPEC WHEN PFRMD 06/13/2013 Colonoscopy EGD TRANSORAL BIOPSY SINGLE/MULTIPLE 07/24/08 EGD W W/O BRUSH WASH 03/03/2017 ESOPHAGOGASTRODUODENOSCOPY TRANSORAL DIAGNOSTIC 02/10/2011 EGD ESOPHAGOGASTRODUODENOSCOPY TRANSORAL DIAGNOSTIC 06/13/2013 EGD repeat 2 years ESOPHAGOGASTRODUODENOSCOPY TRANSORAL DIAGNOSTIC 04/24/2015 EGD PAST SURGICAL HISTORY OF 1993 BLADDER REPAIR PAST SURGICAL HISTORY OF 01/11 benign right breast biopsy PAST SURGICAL HISTORY OF 04/17; 07/19 cataract surgery TONSILLECTOMY PRIMARY/SECONDARY <AGE 10 1950 Tonsillectomy TOTAL ABDOMINAL HYSTERECT W/WO RMVL TUBE OVARY 1993 Hysterectomy, [facility] Allergies: ALLERGIES No Known Allergies Medications: pantoprazole DR (PROTONIX) 40 mg tablet Take 1 tablet by mouth twice daily. LORazepam (ATIVAN) 1 mg tablet Take 1 tablet by mouth daily at bedtime for 180 days. conjugated estrogens (PREMARIN) vaginal cream Use 1 g vaginally two times a week. Use 1g vaginally every night for two weeks and then twice weekly after that.Use 0.5g in the vagina and then 0.5g around the vaginal opening amLODIPine (NORVASC) 10 mg tablet Take 1 tablet by mouth once daily. potassium chloride SR (MICRO-K) 8 mEq cpER Take 1 capsule by mouth daily with breakfast. simvastatin (ZOCOR) 40 mg tablet Take 1 tablet by mouth daily at bedtime. FLUoxetine HCl (PROZAC) 40 mg capsule Take 1 capsule by mouth once daily. METOPROLOL SUCCINATE ORAL Take 50 mg by mouth once daily. ondansetron orally disintegrating (ZOFRAN ODT) 4 mg disintegrating tablet Take 1 tablet by mouth every 6 hours as needed for nausea/vomiting. methylcellulose (CITRUCEL ORAL) Take by mouth once daily. calcium carbonate-vitamin D3 600 mg (1,500 mg)-800 unit chew Take 1 tablet by mouth twice daily. lactobacillus acidophilus (PROBIOTIC) 10 billion cell cap Take 1 capsule by mouth as needed. MULTIVITAMIN TAB Take one(1) tablet daily. FAMILY HISTORY Problem Relation Age of Onset Emphysema Mother Osteoporosis Mother Heart Father Emphysema Father other (cva) Maternal Grandfather Breast Cancer Maternal Aunt other (hiatial hernia) Maternal Aunt mother, both maternal grandparents Employer And Job Title: [employer] (retired) Years Of Education Completed: 16+ years Marital Status: to Marina with 1 child Social History Tobacco Use Smoking status: Former Smoker Quit date: 09/22/1990 Years since quittin.1 Smokeless tobacco: Never Used Vaping Use Vaping Use: Never used Substance Use Topics Alcohol use: Not Currently Alcohol/week: 17.5 standard drinks Types: 7 Glasses of Wine (5oz) per week Comment: occasionally wine Drug use: No Review of Systems: Review of Systems All other systems reviewed and are negative. Are you taking any blood thinners? No Physical Examination: BP 130/62 Pulse 77 Ht 5' 1.417 (1.56m) Wt 141 lb (64.0kg) SpO2 97% BMI 26.28 kg/(m^2). Physical Exam Constitutional: Appearance: Normal appearance. She is normal weight. HENT: Head: Normocephalic and atraumatic. Eyes: Extraocular Movements: Extraocular movements intact. Pupils: Pupils are equal, round, and reactive to light. Cardiovascular: Rate and Rhythm: Normal rate and regular rhythm. Pulses: Normal pulses. Heart sounds: Normal heart sounds. Pulmonary: Effort: Pulmonary effort is normal. Breath sounds: Normal breath sounds. Abdominal: General: Abdomen is flat. Bowel sounds are normal. Palpations: Abdomen is soft. Musculoskeletal: General: Normal range of motion. Cervical back: Normal range of motion and neck supple. Skin: General: Skin is warm and dry. Neurological: General: No focal deficit present. Mental Status: She is alert and oriented to person, place, and time. Psychiatric: Mood and Affect: Mood normal. Behavior: Behavior normal. ASSESSMENT: Chappell's esophagus without dysplasia (primary encounter diagnosis) PLAN: Assessment/Plan (K22.70) Chappell's esophagus without dysplasia (primary encounter diagnosis) 1. Chappell's esophagus without dysplasia -Patient presents today for EGD for Chappell's surveillance. PAtient denies upper GI concerns at this time. Patient has a history of intestinal metaplasia in the stomach 2014 - Recommend EGD with esophageal and stomach biopsy. Patient is a patient and and mentioned that she would like The same sedation Fentanyl 50 micrograms IV, Midazolam 3 mg IV, Benzocaine spray - EGD DIAGNOSTIC; Future Follow up in office 3 months/PRN. Recommended to please call office/go to ER if fever, chills, chest pain, SOB, diarrhea, nausea, emesis, worsening abdominal pain, dehydration occurs I spent 30 minutes in the visit, with more than 50% of the total [id number] time of the visit in counseling / coordination of care. I have confirmed and edited as necessary, the PFSH and ROS obtained by others. Mayra Rico APRN.CNP November 02, 2021 1:51 PM documented in this encounter [facility] 10-20-2021 History of Present illness Narrative Radiology Service Progress Note PATIENT NAME: Petra Haro DATE OF SERVICE: October 20, 2021 TIME: 9:30 AM PATIENT IDENTITY VERIFICATION COMPLETED USING TWO (2) IDENTIFIERS: Name and Date of confirmed by patient verbally. FALL SCREENING: Has the patient had 2 falls in the last year or 1 fall with injury or currently using an Ambulatory Assistive Device (Walker, Cane, Wheelchair, Crutches, etc.)? No PATIENT GENDER DATA: Female. status: : No status: NO. PATIENT RELEVANT IMPLANT DATA REVIEWED: Not Applicable RADIOLOGY DEPARTMENT: Bone Density PERIPHERAL IV DATA: Not applicable SIGNED BY: RT Wanda(R) October 20, 2021 9:30 AM documented in this encounter [facility] 09-28-2021 History of Present illness Narrative Episode Visit Count: 1 Therapist That Will Oversee The Plan Of Care: Gissel Shea Start of Care Date: 09/28/21 Onset Date: 08/31/21 Plan of Care Certification Date: 09/28/21 Next Certification Due Date: 12/07/21 Patient Identified by Name and Date of : Yes REHABILITATION AND SPORTS THERAPY PHYSICAL THERAPY EVALUATION PLAN OF CARE: Assessment: Petra Haro presents with diagnosis of unsteady gait following a fall that interferes with nothing . She presents with impairments in balance, gait and independence in exercise. PROMIS (Patient-Reported Outcomes Measurement Information System) scores were reviewed and physical function domain identified as a rehabilitation concern. Prognosis for therapy is Excellent due to: current objective clinical presentation;good overall health status . She will benefit from skilled therapy services to meet the goals established for this plan of care as noted below. Assessment Fall Risk : Active at risk Goals for Episode of Care: created on 09/28/21 through 12/07/21 Patient will report no falls. Improve score on 30 Second Chair Stand to 12 repetitions to reflect decreased fall risk. [place] in home exercise program including cardiovascular exercise. Patient Goals: feel more steady with walking, not so frightened Planned Interventions, Frequency, and Duration: Current Frequency: 1x/week Duration: 8 weeks Total Number of Visits Planned: 8 Planned Treatment Interventions: Therapeutic exercise (08155);Neuromuscular re-education (50944);Self-residential management (95397);Patient/Family/Caregiver Education PLAN FOR NEXT VISIT: Will work on balance board, step taps, hurdles, airx foam Patient demonstrates good understanding of plan of care and treatment. The above goals and plan of care were discussed and agreed upon by patient/family. SUBJECTIVE: Petra Haro is a 76 year old female seen today for Pt notes that she fell backward, had concussion . Now feels unsteady with stairs, walking. Patient Goals: feel more steady with walking, not so frightened Functional Limitations: nothing Prior Level of Function: Independent without limitations Relevant History Past Relevant Medical Conditions: (left knee is bad) Preferred Language: Sami Employment: Retired Hobbies / Interests: bridge clubs, reading Home Environment Home Type: Multi-Level Entry To Home: Stairs;Without Rail Number Of Stairs Into Home: 2 Intake Information: Prescription present Previous Treatment: None Falls Interview: Fall with injury in the last year Falls Intervention: Falls Specific Functional Performance Tests Falls History # of falls in past year: 1 # of falls resulting in an injury in past year: 1 Pain: Pain Pain Level: 4 Pain Location: Knee - Left Description: Aching Post Treatment Pain Post Treatment Pain Level: No Change PROMIS Scales Higher is Better 09/04/2020 01/29/2021 09/25/2021 Phys Func - Score - - 42 (mild dysfunction) Phys Func - Percentile - - 21 % Social Roles - Score - - 52 (within normal limits) Social Role - Percentile - - 58 % GH Physical - Score 47.7 42.3 (Good) 47.7 (Good) GH Physical - Percentile 41 % 22 % 41 % GH Mental - Score 50.8 53.3 (Very Good) 50.8 (Very Good) GH Mental - Percentile 53 % 63 % 53 % Self-Eff Symptom - Score - - 44 (Average) Self-Eff Symptom - Percentile - - 27 % T-scores: mean of general population = 50. 5 points is clinically meaningfully difference Percentiles provide an indication of how the patient's score ranks in relation to the general population. Higher percentile rankings indicate better function/quality of life. 50th percentile is the average of the general population and indicates half of respondents had a worse score. Lower is Better 09/25/2021 Fatigue - Score 50 (within normal limits) Fatigue - Percentile 50 % T-scores: mean of general population = 50. 5 points is clinically meaningfully difference Percentiles provide an indication of how the patient's score ranks in relation to the general population. Higher percentile rankings indicate better function/quality of life. 50th percentile is the average of the general population and indicates half of respondents had a worse score. OBJECTIVE MEASURES WITH LEVEL OF FUNCTION: Vision Vision Deficits: Wears corrective lenses Corrective lenses: (reading glasses) Sensory Sensory Deficits: (none) Corrective lenses: (reading glasses) Observations Sitting Compensations: (none) LE Strength R Hip Flexion (L2): 5/5 R Knee Extension (L3): 5/5 R Knee Flexion: 5/5 R Ankle Dorsiflexion (L4): 5/5 R Ankle Inversion: 5/5 R Ankle Eversion: 5/5 L Hip Flexion (L2): 5/5 L Knee Extension (L3): 5/5 L Knee Flexion: 5/5 L Ankle Dorsiflexion (L4): 5/5 L Ankle Inversion: 5/5 L Ankle Eversion: 5/5 Mobility Sit To Stand: Independent Stand To Sit: Independent Gait Weight Bearing Status: FWB Gait: Independent Gait Device: None Gait Deviations: Left Lower Extremity Gait Deviations Left Lower Extremity: (slight pronation which leads to valgus of knee) Functional Performance Test Results 30 Second Chair Stand Test: 10 reps Timed Up and Go (sec): 8 sec 4 Stage Balance Test Narrow base of support (sec): 20 sec Semi-tandem base of support (sec): 20 sec Tandem base of support (sec): 20 sec Functional Reach - Stand Functional Reach Stand - Right (inches): 10 in (with hesitation) Tinetti Assessment Tool Sitting balance: 1- Steady, safe Rises from chair: 2- Able without use of arms Attempts to rise: 2- Able to rise, 1 attempt Immediate standin- Steady without walker or other support Standing balance: 2- Narrow stance without support Nudged: 2- Stead Eyes closed: 1- Steady Turning 360 Continuous: 1- Continuous Turning 360 Steady: 1- Steady Sitting down: 2- Safe, smooth motion Balance Score (calculated): 16 Indication of gait: 1- No hesitancy R Step length and height: 1- Step through R L Step length and height: 1- Step through L R Foot clearance: 1- R foot clears L Foot clearance: 1- L foot clears Step symmetry: 1- R and L step length appear equal Step continuity: 1- Steps appear continuous Path: 2- Straight without aid Trunk: 2- No sway, flex or use of arms or aid Walk Time: 1- Heels amost touching while walking Gait Score (calculated): 12 Tinetti Assessment Tool Total Score (calculated): 28 Fall Risk:: > or equal to 24: Low Fall Risk Education: Education Learning Preferences: Demonstration;Explanation;Performa nce;Printed Materials Barriers: None Learning/educational needs: Home exercise program;Plan of Care Education Provided: Yes, see treatment interventions for education provided Education Provided To: Patient Education Mode/Type: Demonstration;Explanation/Discussi on;Literature/Printed Materials;Performance Response to Education/Teach Back: States/Identifies;Return Demonstration TREATMENT: PT Treatment Interventions: Therapeutic Exercise;Self-Penitentiary Management Evaluation Therapeutic Exercise: 1: sit to stand no hands ( to perform throughout the day) 2: discussed basic exs of hip flexion , leg extension, ankle circles, ankle inversion / eversion Skilled Intervention: Patient was educated in proper exercise technique and purpose for exercises. Skilled judgment was provided in selection of appropriate interventions. Correct performance of therapeutic exercises was facilitated with verbal and visual cuing. Self-Penitentiary Management: 1: Reviewed home safety to prevent falls with handout. Lightening, obstacles, keeping items close within reach etc. Skilled Intervention: Skilled judgment in the selection of proper modification for activity of daily living/home management based on clinical presentation, deficits, and needs. Educated the patient regarding recommendations and provided written instruction to facilitate compliance. Home Exercise Program Assigned: 1: as outlined above Billing * Evaluation Low Complexity: 1 Unit Therapeutic Exercise Treatment Minutes: 10 Self-Care/Home Management Treatment Minutes: 15 Total Treatment Time Minutes (timed and untimed codes) : 45 Gissel Shea PT documented in this encounter [facility] documented as of this encounter (statuses as of 12/28/2021) [facility]-21-2022 History of Past illness Narrative* Problem Noted Date Resolved Date Unsteady gait 09/28/2021 12/28/2021 Chappell's ulcer 04/24/2015 04/24/2015 Prolapse of anterior vaginal wall 10/30/2012 11/04/2015 Knee pain, left 06/21/2011 11/04/2015 Overview: Left Meniscal injury. Dr. Tashi Dominguez. Acute gastritis without mention of hemorrhage 06/21/2011 Pain in joint, multiple sites 11/16/2010 Cough 01/22/2009 06/21/2011 Diverticulosis of colon (without mention of hemo rrhage) 11/04/2015 Acquired musculoskeletal deformity of other spec ified site 08/16/2012 Diaphragmatic hernia without mention of obstruction or gangrene 06/13/2017 documented as of this encounter (statuses as of 03/17/2022) [facility] History of Past illness Narrative* Problem Noted Date Resolved Date Unsteady gait 09/28/2021 12/28/2021 Chappell's ulcer 04/24/2015 04/24/2015 Prolapse of anterior vaginal wall 10/30/2012 11/04/2015 Knee pain, left 06/21/2011 11/04/2015 Overview: Left Meniscal injury. Dr. Tashi Dominguez. Acute gastritis without mention of hemorrhage 06/21/2011 Pain in joint, multiple sites 11/16/2010 Cough 01/22/2009 06/21/2011 Diverticulosis of colon (without mention of hemo rrhage) 11/04/2015 Acquired musculoskeletal deformity of other spec ified site 08/16/2012 Diaphragmatic hernia without mention of obstruction or gangrene 06/13/2017 documented as of this encounter (statuses as of 04/10/2022) [facility] History of Past illness Narrative* Problem Noted Date Resolved Date Unsteady gait 09/28/2021 12/28/2021 Chappell's ulcer 04/24/2015 04/24/2015 Prolapse of anterior vaginal wall 10/30/2012 11/04/2015 Knee pain, left 06/21/2011 11/04/2015 Overview: Left Meniscal injury. Dr. Tashi Dominguez. Acute gastritis without mention of hemorrhage 06/21/2011 Pain in joint, multiple sites 11/16/2010 Cough 01/22/2009 06/21/2011 Diverticulosis of colon (without mention of hemo rrhage) 11/04/2015 Acquired musculoskeletal deformity of other spec ified site 08/16/2012 Diaphragmatic hernia without mention of obstruction or gangrene 06/13/2017 documented as of this encounter (statuses as of 04/14/2022) [facility] History of Past illness Narrative* Problem Noted Date Resolved Date Unsteady gait 09/28/2021 12/28/2021 Chappell's ulcer 04/24/2015 04/24/2015 Prolapse of anterior vaginal wall 10/30/2012 11/04/2015 Knee pain, left 06/21/2011 11/04/2015 Overview: Left Meniscal injury. Dr. Tashi Dominguez. Acute gastritis without mention of hemorrhage 06/21/2011 Pain in joint, multiple sites 11/16/2010 Cough 01/22/2009 06/21/2011 Diverticulosis of colon (without mention of hemo rrhage) 11/04/2015 Acquired musculoskeletal deformity of other spec ified site 08/16/2012 Diaphragmatic hernia without mention of obstruction or gangrene 06/13/2017 documented as of this encounter (statuses as of 04/29/2022) [facility] History of Past illness Narrative* Problem Noted Date Resolved Date Unsteady gait 09/28/2021 12/28/2021 Chappell's ulcer 04/24/2015 04/24/2015 Prolapse of anterior vaginal wall 10/30/2012 11/04/2015 Knee pain, left 06/21/2011 11/04/2015 Overview: Left Meniscal injury. Dr. Tashi Dominguez. Acute gastritis without mention of hemorrhage 06/21/2011 Pain in joint, multiple sites 11/16/2010 Cough 01/22/2009 06/21/2011 Diverticulosis of colon (without mention of hemo rrhage) 11/04/2015 Acquired musculoskeletal deformity of other spec ified site 08/16/2012 Diaphragmatic hernia without mention of obstruction or gangrene 06/13/2017 documented as of this encounter (statuses as of 05/31/2022) [facility] of Past illness Narrative* Problem Noted Date Resolved Date Unsteady gait 09/28/2021 12/28/2021 Chappell's ulcer 04/24/2015 04/24/2015 Prolapse of anterior vaginal wall 10/30/2012 11/04/2015 Knee pain, left 06/21/2011 11/04/2015 Overview: Left Meniscal injury. Dr. Tashi Dominguez. Acute gastritis without mention of hemorrhage 06/21/2011 Pain in joint, multiple sites 11/16/2010 Cough 01/22/2009 06/21/2011 Diverticulosis of colon (without mention of hemo rrhage) 11/04/2015 Acquired musculoskeletal deformity of other spec ified site 08/16/2012 Diaphragmatic hernia without mention of obstruction or gangrene 06/13/2017 documented as of this encounter (statuses as of 06/01/2022) [facility] of Past illness Narrative* Problem Noted Date Resolved Date Unsteady gait 09/28/2021 12/28/2021 Chappell's ulcer 04/24/2015 04/24/2015 Prolapse of anterior vaginal wall 10/30/2012 11/04/2015 Knee pain, left 06/21/2011 11/04/2015 Overview: Left Meniscal injury. Dr. Tashi Dominguez. Acute gastritis without mention of hemorrhage 06/21/2011 Pain in joint, multiple sites 11/16/2010 Cough 01/22/2009 06/21/2011 Diverticulosis of colon (without mention of hemo rrhage) 11/04/2015 Acquired musculoskeletal deformity of other spec ified site 08/16/2012 Diaphragmatic hernia without mention of obstruction or gangrene 06/13/2017 documented as of this encounter (statuses as of 06/02/2022) [facility] of Past illness Narrative* Problem Noted Date Resolved Date Unsteady gait 09/28/2021 12/28/2021 Chappell's ulcer 04/24/2015 04/24/2015 Prolapse of anterior vaginal wall 10/30/2012 11/04/2015 Knee pain, left 06/21/2011 11/04/2015 Overview: Left Meniscal injury. Dr. Tashi Dominguez. Acute gastritis without mention of hemorrhage 06/21/2011 Pain in joint, multiple sites 11/16/2010 Cough 01/22/2009 06/21/2011 Diverticulosis of colon (without mention of hemo rrhage) 11/04/2015 Acquired musculoskeletal deformity of other spec ified site 08/16/2012 Diaphragmatic hernia without mention of obstruction or gangrene 06/13/2017 documented as of this encounter (statuses as of 06/07/2022) [facility] of Past illness Narrative* Problem Noted Date Resolved Date Unsteady gait 09/28/2021 12/28/2021 Chappell's ulcer 04/24/2015 04/24/2015 Prolapse of anterior vaginal wall 10/30/2012 11/04/2015 Knee pain, left 06/21/2011 11/04/2015 Overview: Left Meniscal injury. Dr. Tashi Dominguez. Acute gastritis without mention of hemorrhage 06/21/2011 Pain in joint, multiple sites 11/16/2010 Cough 01/22/2009 06/21/2011 Diverticulosis of colon (without mention of hemo rrhage) 11/04/2015 Acquired musculoskeletal deformity of other spec ified site 08/16/2012 Diaphragmatic hernia without mention of obstruction or gangrene 06/13/2017 documented as of this encounter (statuses as of 06/11/2022) [facility] of Past illness Narrative* Problem Noted Date Resolved Date Unsteady gait 09/28/2021 12/28/2021 Chappell's ulcer 04/24/2015 04/24/2015 Prolapse of anterior vaginal wall 10/30/2012 11/04/2015 Knee pain, left 06/21/2011 11/04/2015 Overview: Left Meniscal injury. Dr. Tashi Dominguez. Acute gastritis without mention of hemorrhage 06/21/2011 Pain in joint, multiple sites 11/16/2010 Cough 01/22/2009 06/21/2011 Diverticulosis of colon (without mention of hemo rrhage) 11/04/2015 Acquired musculoskeletal deformity of other spec ified site 08/16/2012 Diaphragmatic hernia without mention of obstruction or gangrene 06/13/2017 documented as of this encounter (statuses as of 09/15/2022) [facility] of Past illness Narrative* Problem Noted Date Resolved Date Unsteady gait 09/28/2021 12/28/2021 Chappell's ulcer 04/24/2015 04/24/2015 Prolapse of anterior vaginal wall 10/30/2012 11/04/2015 Knee pain, left 06/21/2011 11/04/2015 Overview: Left Meniscal injury. Dr. Tashi Dominguez. Acute gastritis without mention of hemorrhage 06/21/2011 Pain in joint, multiple sites 11/16/2010 Cough 01/22/2009 06/21/2011 Diverticulosis of colon (without mention of hemo rrhage) 11/04/2015 Acquired musculoskeletal deformity of other spec ified site 08/16/2012 Diaphragmatic hernia without mention of obstruction or gangrene 06/13/2017 documented as of this encounter (statuses as of 09/24/2022) [facility] of Past illness Narrative* Problem Noted Date Resolved Date Unsteady gait 09/28/2021 12/28/2021 Chappell's ulcer 04/24/2015 04/24/2015 Prolapse of anterior vaginal wall 10/30/2012 11/04/2015 Knee pain, left 06/21/2011 11/04/2015 Overview: Left Meniscal injury. Dr. Tashi Dominguez. Acute gastritis without mention of hemorrhage 06/21/2011 Pain in joint, multiple sites 11/16/2010 Cough 01/22/2009 06/21/2011 Diverticulosis of colon (without mention of hemo rrhage) 11/04/2015 Acquired musculoskeletal deformity of other spec ified site 08/16/2012 Diaphragmatic hernia without mention of obstruction or gangrene 06/13/2017 documented as of this encounter (statuses as of 12/13/2022) [facility] of Past illness Narrative* Problem Noted Date Resolved Date Unsteady gait 09/28/2021 12/28/2021 Chapepll's ulcer 04/24/2015 04/24/2015 Prolapse of anterior vaginal wall 10/30/2012 11/04/2015 Knee pain, left 06/21/2011 11/04/2015 Overview: Left Meniscal injury. Dr. Tashi Dominguez. Acute gastritis without mention of hemorrhage 06/21/2011 Pain in joint, multiple sites 11/16/2010 Cough 01/22/2009 06/21/2011 Diverticulosis of colon (without mention of hemo rrhage) 11/04/2015 Acquired musculoskeletal deformity of other spec ified site 08/16/2012 Diaphragmatic hernia without mention of obstruction or gangrene 06/13/2017 documented as of this encounter (statuses as of 12/27/2022) [facility] of Past illness Narrative* Problem Noted Date Diagnosed Date Resolved Date Unsteady gait 09/28/2021 12/28/2021 Chappell's ulcer 04/24/2015 04/24/2015 Prolapse of anterior vaginal wall 10/30/2012 11/04/2015 Knee pain, left 06/21/2011 11/04/2015 Overview: Left Meniscal injury. Dr. Tashi Dominguez. Acute gastritis without mention of hemorrhage 02/11/20 11 06/21/2011 Pain in joint, multiple sites 11/16/2010 08/16/2012 Cough 01/22/2009 06/21/2011 Diverticulosis of colon (wit hout mention of hemorrhage) 11/04/2015 Acquired musculoskeletal def ormity of other specified site 08/16/2012 Diaphragmatic hernia without mention of obstruction or gangrene 06/13/2017 documented as of this encounter (statuses as of 03/16/2023) [facility] Past illness Narrative* Problem Noted Date Diagnosed Date Resolved Date Unsteady gait 09/28/2021 12/28/2021 Chappell's ulcer 04/24/2015 04/24/2015 Prolapse of anterior vaginal wall 10/30/2012 11/04/2015 Knee pain, left 06/21/2011 11/04/2015 Overview: Left Meniscal injury. Dr. Tashi Dominguez. Acute gastritis without mention of hemorrhage 02/11/20 11 06/21/2011 Pain in joint, multiple sites 11/16/2010 08/16/2012 Cough 01/22/2009 06/21/2011 Diverticulosis of colon (wit hout mention of hemorrhage) 11/04/2015 Acquired musculoskeletal def ormity of other specified site 08/16/2012 Diaphragmatic hernia without mention of obstruction or gangrene 06/13/2017 documented as of this encounter (statuses as of 04/05/2023) [facility] of Past illness Narrative* Problem Noted Date Diagnosed Date Resolved Date Unsteady gait 09/28/2021 12/28/2021 Chappell's ulcer 04/24/2015 04/24/2015 Prolapse of anterior vaginal wall 10/30/2012 11/04/2015 Knee pain, left 06/21/2011 11/04/2015 Overview: Left Meniscal injury. Dr. Tashi Dominguez. Acute gastritis without mention of hemorrhage 02/11/20 11 06/21/2011 Pain in joint, multiple sites 11/16/2010 08/16/2012 Cough 01/22/2009 06/21/2011 Diverticulosis of colon (wit hout mention of hemorrhage) 11/04/2015 Acquired musculoskeletal def ormity of other specified site 08/16/2012 Diaphragmatic hernia without mention of obstruction or gangrene 06/13/2017 documented as of this encounter (statuses as of 05/06/2023) [facility] Past illness Narrative* Problem Noted Date Diagnosed Date Resolved Date Unsteady gait 09/28/2021 12/28/2021 Chappell's ulcer 04/24/2015 04/24/2015 Prolapse of anterior vaginal wall 10/30/2012 11/04/2015 Knee pain, left 06/21/2011 11/04/2015 Overview: Left Meniscal injury. Dr. Tashi Dominguez. Acute gastritis without mention of hemorrhage 02/11/20 11 06/21/2011 Pain in joint, multiple sites 11/16/2010 08/16/2012 Cough 01/22/2009 06/21/2011 Diverticulosis of colon (wit hout mention of hemorrhage) 11/04/2015 Acquired musculoskeletal def ormity of other specified site 08/16/2012 Diaphragmatic hernia without mention of obstruction or gangrene 06/13/2017 documented as of this encounter (statuses as of 05/15/2023) [facility] of Past illness Narrative* Problem Noted Date Diagnosed Date Resolved Date Unsteady gait 09/28/2021 12/28/2021 Chappell's ulcer 04/24/2015 04/24/2015 Prolapse of anterior vaginal wall 10/30/2012 11/04/2015 Knee pain, left 06/21/2011 11/04/2015 Overview: Left Meniscal injury. Dr. Tashi Dominguez. Acute gastritis without mention of hemorrhage 02/11/20 11 06/21/2011 Pain in joint, multiple sites 11/16/2010 08/16/2012 Cough 01/22/2009 06/21/2011 Diverticulosis of colon (wit hout mention of hemorrhage) 11/04/2015 Acquired musculoskeletal def ormity of other specified site 08/16/2012 Diaphragmatic hernia without mention of obstruction or gangrene 06/13/2017 documented as of this encounter (statuses as of 05/30/2023) [facility] History of Past illness Narrative* Problem Noted Date Resolved Date Chappell's ulcer 04/24/2015 04/24/2015 Prolapse of anterior vaginal wall 10/30/2012 11/04/2015 Knee pain, left 06/21/2011 11/04/2015 Overview: Left Meniscal injury. Dr. Tashi Dominguez. Acute gastritis without mention of hemorrhage 06/21/2011 Pain in joint, multiple sites 11/16/2010 Cough 01/22/2009 06/21/2011 Diverticulosis of colon (without mention of hemo rrhage) 11/04/2015 Acquired musculoskeletal deformity of other spec ified site 08/16/2012 Diaphragmatic hernia without mention of obstruction or gangrene 06/13/2017 documented as of this encounter (statuses as of 09/28/2021) [facility] History of Past illness Narrative* Problem Noted Date Resolved Date Chappell's ulcer 04/24/2015 04/24/2015 Prolapse of anterior vaginal wall 10/30/2012 11/04/2015 Knee pain, left 06/21/2011 11/04/2015 Overview: Left Meniscal injury. Dr. Tashi Dominguez. Acute gastritis without mention of hemorrhage 06/21/2011 Pain in joint, multiple sites 11/16/2010 Cough 01/22/2009 06/21/2011 Diverticulosis of colon (without mention of hemo rrhage) 11/04/2015 Acquired musculoskeletal deformity of other spec ified site 08/16/2012 Diaphragmatic hernia without mention of obstruction or gangrene 06/13/2017 documented as of this encounter (statuses as of 10/21/2021) [facility] of Past illness Narrative* Problem Noted Date Resolved Date Chappell's ulcer 04/24/2015 04/24/2015 Prolapse of anterior vaginal wall 10/30/2012 11/04/2015 Knee pain, left 06/21/2011 11/04/2015 Overview: Left Meniscal injury. Dr. Tashi Dominguez. Acute gastritis without mention of hemorrhage 06/21/2011 Pain in joint, multiple sites 11/16/2010 Cough 01/22/2009 06/21/2011 Diverticulosis of colon (without mention of hemo rrhage) 11/04/2015 Acquired musculoskeletal deformity of other spec ified site 08/16/2012 Diaphragmatic hernia without mention of obstruction or gangrene 06/13/2017 documented as of this encounter (statuses as of 11/02/2021) [facility] of Past illness Narrative* Problem Noted Date Resolved Date Chappell's ulcer 04/24/2015 04/24/2015 Prolapse of anterior vaginal wall 10/30/2012 11/04/2015 Knee pain, left 06/21/2011 11/04/2015 Overview: Left Meniscal injury. Dr. Tashi Dominguez. Acute gastritis without mention of hemorrhage 06/21/2011 Pain in joint, multiple sites 11/16/2010 Cough 01/22/2009 06/21/2011 Diverticulosis of colon (without mention of hemo rrhage) 11/04/2015 Acquired musculoskeletal deformity of other spec ified site 08/16/2012 Diaphragmatic hernia without mention of obstruction or gangrene 06/13/2017 documented as of this encounter (statuses as of 11/10/2021) [facility] of Past illness Narrative* Problem Noted Date Resolved Date Chappell's ulcer 04/24/2015 04/24/2015 Prolapse of anterior vaginal wall 10/30/2012 11/04/2015 Knee pain, left 06/21/2011 11/04/2015 Overview: Left Meniscal injury. Dr. Tashi Dominguez. Acute gastritis without mention of hemorrhage 06/21/2011 Pain in joint, multiple sites 11/16/2010 Cough 01/22/2009 06/21/2011 Diverticulosis of colon (without mention of hemo rrhage) 11/04/2015 Acquired musculoskeletal deformity of other spec ified site 08/16/2012 Diaphragmatic hernia without mention of obstruction or gangrene 06/13/2017 documented as of this encounter (statuses as of 11/16/2021) [facility] of Past illness Narrative* Problem Noted Date Resolved Date Chappell's ulcer 04/24/2015 04/24/2015 Prolapse of anterior vaginal wall 10/30/2012 11/04/2015 Knee pain, left 06/21/2011 11/04/2015 Overview: Left Meniscal injury. Dr. Tashi Dominguez. Acute gastritis without mention of hemorrhage 06/21/2011 Pain in joint, multiple sites 11/16/2010 Cough 01/22/2009 06/21/2011 Diverticulosis of colon (without mention of hemo rrhage) 11/04/2015 Acquired musculoskeletal deformity of other spec ified site 08/16/2012 Diaphragmatic hernia without mention of obstruction or gangrene 06/13/2017 documented as of this encounter (statuses as of 11/23/2021) [facility] of Past illness Narrative* Problem Noted Date Resolved Date Chappell's ulcer 04/24/2015 04/24/2015 Prolapse of anterior vaginal wall 10/30/2012 11/04/2015 Knee pain, left 06/21/2011 11/04/2015 Overview: Left Meniscal injury. Dr. Tashi Dominguez. Acute gastritis without mention of hemorrhage 06/21/2011 Pain in joint, multiple sites 11/16/2010 Cough 01/22/2009 06/21/2011 Diverticulosis of colon (without mention of hemo rrhage) 11/04/2015 Acquired musculoskeletal deformity of other spec ified site 08/16/2012 Diaphragmatic hernia without mention of obstruction or gangrene 06/13/2017 documented as of this encounter (statuses as of 12/01/2021) [facility] of Past illness Narrative* Problem Noted Date Resolved Date Chappell's ulcer 04/24/2015 04/24/2015 Prolapse of anterior vaginal wall 10/30/2012 11/04/2015 Knee pain, left 06/21/2011 11/04/2015 Overview: Left Meniscal injury. Dr. Tashi Dominguez. Acute gastritis without mention of hemorrhage 06/21/2011 Pain in joint, multiple sites 11/16/2010 Cough 01/22/2009 06/21/2011 Diverticulosis of colon (without mention of hemo rrhage) 11/04/2015 Acquired musculoskeletal deformity of other spec ified site 08/16/2012 Diaphragmatic hernia without mention of obstruction or gangrene 06/13/2017 documented as of this encounter (statuses as of 12/08/2021) [facility] of Past illness Narrative* Problem Noted Date Resolved Date Chappell's ulcer 04/24/2015 04/24/2015 Prolapse of anterior vaginal wall 10/30/2012 11/04/2015 Knee pain, left 06/21/2011 11/04/2015 Overview: Left Meniscal injury. Dr. Tashi Dominguez. Acute gastritis without mention of hemorrhage 06/21/2011 Pain in joint, multiple sites 11/16/2010 Cough 01/22/2009 06/21/2011 Diverticulosis of colon (without mention of hemo rrhage) 11/04/2015 Acquired musculoskeletal deformity of other spec ified site 08/16/2012 Diaphragmatic hernia without mention of obstruction or gangrene 06/13/2017 documented as of this encounter (statuses as of 12/11/2021) [facility] Diagnosis Unsteady gait Abnormality of gait [facility] Osteopenia, unspecified location [facility] Diagnosis Chappell's esophagus without dysplasia- Primary Chappell's esophagus [facility] Diagnosis Unsteady gait- Primary Abnormality of gait [facility] Diagnosis Unsteady gait- Primary Abnormality of gait documented in this encounter [facility] note* Diagnosis Unsteady gait- Primary Abnormality of gait documented in this encounter [facility] note* Diagnosis Unsteady gait- Primary Abnormality of gait documented in this encounter [facility] note* Diagnosis Unsteady gait- Primary Abnormality of gait documented in this encounter [facility] note* Diagnosis Unsteady gait- Primary Abnormality of gait documented in this encounter [facility] note* Diagnosis Primary hypertension- Primary Unspecified essential hypertension Need for influenza vaccination Need for prophylactic vaccination and inoculation against influenza Hyperlipidemia, unspecified hyperlipidemia type Need for vaccination Need for prophylactic vaccination and inoculation against unspecified single disease Arthritis of left knee Unspecified arthropathy, lower leg Anxiety about health documented in this encounter [facility] note* Diagnosis Anxiety about health documented in this encounter [facility] note* Diagnosis Visit for suture removal- Primary Encounter for removal of sutures Primary hypertension Unspecified essential hypertension documented in this encounter [facility] note* Diagnosis Hyponatremia- Primary Hyposmolality and/or hyponatremia documented in this encounter [facility] note* Diagnosis Hyponatremia- Primary Hyposmolality and/or hyponatremia Leukocytosis, unspecified type Malaise Other malaise and fatigue Nausea Nausea alone documented in this encounter [facility] note* Diagnosis Urinary tract infection without hematuria, site unspecified- Primary Urinary frequency Hyponatremia Hyposmolality and/or hyponatremia Primary hypertension Unspecified essential hypertension Redness, eye Redness or discharge of eye documented in this encounter [facility] note* Diagnosis Primary hypertension- Primary Unspecified essential hypertension Gastroesophageal reflux disease without esophagitis Esophageal reflux Chappell's esophagus without dysplasia Chappell's esophagus Anxiety about health Hyperlipidemia, unspecified hyperlipidemia type documented in this encounter [facility] note* Diagnosis Chappell's esophagus without dysplasia- Primary Chappell's esophagus documented in this encounter [facility] note* Diagnosis Impaired fasting glucose- Primary Elevated liver function tests Other abnormal blood chemistry Chappell's esophagus without dysplasia- Primary Chappell's esophagus documented in this encounter [facility] note* Diagnosis Chappell's esophagus without dysplasia- Primary Chappell's esophagus Gastritis with intestinal metaplasia of stomach documented in this encounter [facility] note* Diagnosis Anxiety about health documented in this encounter [facility] note* Diagnosis Hyperlipidemia, unspecified hyperlipidemia type documented in this encounter [facility] note* Diagnosis Post-viral cough syndrome- Primary Cough documented in this encounter [facility] note* Diagnosis Chappell's esophagus without dysplasia- Primary Chappell's esophagus documented in this encounter [facility] for referral (narrative)* Outpatient Procedure (Routine) - Pending - Linked Order Update Specialty Diagnoses / Procedures Referred By Solo potts Referred To Contact [facility] Diagnoses Chappell's esophagus without dysplasia Procedures EGD DIAGNOSTIC EGD DIAGNOSTIC ESOPHAGOGASTRODUODENOSC OPY TRANSORAL DIAGNOSTIC ESOPHAGOGASTRODUODENOSC OPY TRANSORAL DIAGNOSTIC Mayra Rico APRN.CNP [address] [facility] [place] [address] [facility] [address] [place] [address] Referral ID Status Reason Start Date Expiration Date Visits Requested Visits Authorized [id number] Pending - Linked Order Update Auto-Generat ed Referral 11/02/2021 11/02/2022 1 1 [facility] for referral (narrative)* Outpatient Procedure (Routine) - Closed Specialty Diagnoses / Procedures Referred By Solo potts Referred To Contact [facility] Diagnoses Chappell's esophagus without dysplasia Procedures EGD DIAGNOSTIC ESOPHAGOGASTRODUODENOSCOP Y TRANSORAL DIAGNOSTIC Santana Proctor PA-C [address] [place] [address] Gibson Hunter MD [address] [place] [address] Referral ID Status Reason Start Date Expiration Date V isits Requested Visits Authorized [id number] Closed Auto-Generate d Referral 12/14/2022 03/14/2023 1 1 [facility] for visit Narrative* Outpatient Procedure (Routine) - Closed Specialty Diagnoses / Procedures Referred By Solo potts Referred To Contact [facility] Diagnoses Chappell's esophagus without dysplasia Procedures EGD DIAGNOSTIC ESOPHAGOGASTRODUODENOSCOP Y TRANSORAL DIAGNOSTIC Santana Proctor PA-C [address] [place] [address] Gibson Hunter MD [address] [place] [address] Referral ID Status Reason Start Date Expiration Date V isits Requested Visits Authorized [id number] Closed Auto-Generate d Referral 12/14/2022 03/14/2023 1 1 [facility] Reason for Referral Specialty Diagnoses / Procedures Referred By Solo potts Referred To Contact [facility] Diagnoses Unsteady gait Procedures PT REHAB FOLLOW UP ORDER THERAPEUTIC EXERCISES RE, EA 15 MIN. Pt [facility] [address] [place] [address] [facility] [place] [address] [place] [address] Referral ID Status Reason Start Date Expiration Date Visits Requested Visits Authorized [id number] Pending Review PCP Requested Referral Auto-Generate d Referral 09/28/2021 12/27/2021 1 1 Advance Directives No Advanced Directives Records FoundDocuments on File 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 Advance Directive(s) 12/20/2008 9:10 PM Advance Directive(s) 10/11/2006 12:00 AM Advance Directive(s) 08/26/2006 12:00 AM Documents on File 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 Advance Directive(s) 12/20/2008 9:10 PM Advance Directive(s) 10/11/2006 12:00 AM Advance Directive(s) 08/26/2006 12:00 AM Documents on File 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 Advance Directive(s) 12/20/2008 9:10 PM Advance Directive(s) 10/11/2006 Advance Directive(s) 08/26/2006 Documents on File 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 Advance Directive(s) 12/20/2008 9:10 PM Advance Directive(s) 10/11/2006 Advance Directive(s) 08/26/2006 Medications Administered Section Inactive Administered Medications - up to 3 most recent administrations Medication Order MAR Action Action Date Dose Rate Site benzocaine 20% 1 [place] (TOPEX) 1 [place], TOPICAL, DIRECTED, Starting on Tue12/14/22 at 1230, Until Tue12/14/22 at 1629, DOSING DIRECTED BY PHYSICIAN FOR PROCEDURAL SEDATION ONLY - Pharmaceutical Waste: Aerosol -, Intraprocedure Given 12/14/2022 12:55 PM EDT 5 Sprays fentaNYL 50 mcg/mL 25-100 mcg injection (SUBLIMAZE) 25-100 mcg, INTRAVENOUS, DIRECTED, Starting on Tue12/14/22 at 1230, Until Tue12/14/22 at 1629, DOSING DIRECTED BY PHYSICIAN FOR PROCEDURAL SEDATION ONLY, Intraprocedure Given by LIP 12/14/2022 12:55 PM EDT 50 mcg lactated ringers iv infusion 30 mL/hr, INTRAVENOUS, CONTINUOUS, Starting on Tue12/14/22 at 1100, Until Tue12/14/22 at 1210, Preprocedure New Bag/Syringe/Bottle 12/14/2022 10:40 AM EDT 30 mL/hr 30 mL/hr midazolam 1-5 mg injection (VERSED) 1-5 mg, INTRAVENOUS, DIRECTED, Starting on Tue12/14/22 at 1230, Until Tue12/14/22 at 1629, DOSING DIRECTED BY PHYSICIAN FOR PROCEDURAL SEDATION ONLY, Intraprocedure Given by LIP 12/14/2022 12:57 PM EDT 2 mg Summary Purpose Family History No Family History Records Found Additional Source Comments Source Comments (unrecognize d section and content) In the event this informatio n is protected by the Federal Confidentiality of Alcohol and Drug Abuse Patient Records regulations: The Federal rules restrict any use of the information to criminally investigate or prosecute any alcohol or drug abuse patient.[facility] the event this information is protected by the Federal Confidentiality of Alcohol and Drug Abuse Patient Records regulations: The Federal rules restrict any use of the information to criminally investigate or prosecute any alcohol or drug abuse patient.[facility] the event this information is protected by the Federal Confidentiality of Alcohol and Drug Abuse Patient Records regulations: The Federal rules restrict any use of the information to criminally investigate or prosecute any alcohol or drug abuse patient.[facility] the event this information is protected by the Federal Confidentiality of Alcohol and Drug Abuse Patient Records regulations: The Federal rules restrict any use of the information to criminally investigate or prosecute any alcohol or drug abuse patient.[facility] the event this information is protected by the Federal Confidentiality of Alcohol and Drug Abuse Patient Records regulations: The Federal rules restrict any use of the information to criminally investigate or prosecute any alcohol or drug abuse patient.[facility] the event this information is protected by the Federal Confidentiality of Alcohol and Drug Abuse Patient Records regulations: The Federal rules restrict any use of the information to criminally investigate or prosecute any alcohol or drug abuse patient.[facility] the event this information is protected by the Federal Confidentiality of Alcohol and Drug Abuse Patient Records regulations: The Federal rules restrict any use of the information to criminally investigate or prosecute any alcohol or drug abuse patient.[facility] the event this information is protected by the Federal Confidentiality of Alcohol and Drug Abuse Patient Records regulations: The Federal rules restrict any use of the information to criminally investigate or prosecute any alcohol or drug abuse patient.[facility] the event this information is protected by the Federal Confidentiality of Alcohol and Drug Abuse Patient Records regulations: The Federal rules restrict any use of the information to criminally investigate or prosecute any alcohol or drug abuse patient.[facility] the event this information is protected by the Federal Confidentiality of Alcohol and Drug Abuse Patient Records regulations: The Federal rules restrict any use of the information to criminally investigate or prosecute any alcohol or drug abuse patient.[facility] the event this information is protected by the Federal Confidentiality of Alcohol and Drug Abuse Patient Records regulations: The Federal rules restrict any use of the information to criminally investigate or prosecute any alcohol or drug abuse patient.[facility] the event this information is protected by the Federal Confidentiality of Alcohol and Drug Abuse Patient Records regulations: The Federal rules restrict any use of the information to criminally investigate or prosecute any alcohol or drug abuse patient.[facility] the event this information is protected by the Federal Confidentiality of Alcohol and Drug Abuse Patient Records regulations: The Federal rules restrict any use of the information to criminally investigate or prosecute any alcohol or drug abuse patient.[facility] the event this information is protected by the Federal Confidentiality of Alcohol and Drug Abuse Patient Records regulations: The Federal rules restrict any use of the information to criminally investigate or prosecute any alcohol or drug abuse patient.[facility] the event this information is protected by the Federal Confidentiality of Alcohol and Drug Abuse Patient Records regulations: The Federal rules restrict any use of the information to criminally investigate or prosecute any alcohol or drug abuse patient.[facility] the event this information is protected by the Federal Confidentiality of Alcohol and Drug Abuse Patient Records regulations: The Federal rules restrict any use of the information to criminally investigate or prosecute any alcohol or drug abuse patient.[facility] the event this information is protected by the Federal Confidentiality of Alcohol and Drug Abuse Patient Records regulations: The Federal rules restrict any use of the information to criminally investigate or prosecute any alcohol or drug abuse patient.[facility] the event this information is protected by the Federal Confidentiality of Alcohol and Drug Abuse Patient Records regulations: The Federal rules restrict any use of the information to criminally investigate or prosecute any alcohol or drug abuse patient.[facility] the event this information is protected by the Federal Confidentiality of Alcohol and Drug Abuse Patient Records regulations: The Federal rules restrict any use of the information to criminally investigate or prosecute any alcohol or drug abuse patient.[facility] the event this information is protected by the Federal Confidentiality of Alcohol and Drug Abuse Patient Records regulations: The Federal rules restrict any use of the information to criminally investigate or prosecute any alcohol or drug abuse patient.[facility] the event this information is protected by the Federal Confidentiality of Alcohol and Drug Abuse Patient Records regulations: The Federal rules restrict any use of the information to criminally investigate or prosecute any alcohol or drug abuse patient.[facility] the event this information is protected by the Federal Confidentiality of Alcohol and Drug Abuse Patient Records regulations: The Federal rules restrict any use of the information to criminally investigate or prosecute any alcohol or drug abuse patient.[facility] the event this information is protected by the Federal Confidentiality of Alcohol and Drug Abuse Patient Records regulations: The Federal rules restrict any use of the information to criminally investigate or prosecute any alcohol or drug abuse patient.[facility] the event this information is protected by the Federal Confidentiality of Alcohol and Drug Abuse Patient Records regulations: The Federal rules restrict any use of the information to criminally investigate or prosecute any alcohol or drug abuse patient.[facility] the event this information is protected by the Federal Confidentiality of Alcohol and Drug Abuse Patient Records regulations: The Federal rules restrict any use of the information to criminally investigate or prosecute any alcohol or drug abuse patient.[facility] the event this information is protected by the Federal Confidentiality of Alcohol and Drug Abuse Patient Records regulations: The Federal rules restrict any use of the information to criminally investigate or prosecute any alcohol or drug abuse patient.[facility] the event this information is protected by the Federal Confidentiality of Alcohol and Drug Abuse Patient Records regulations: The Federal rules restrict any use of the information to criminally investigate or prosecute any alcohol or drug abuse patient.[facility] the event this information is protected by the Federal Confidentiality of Alcohol and Drug Abuse Patient Records regulations: The Federal rules restrict any use of the information to criminally investigate or prosecute any alcohol or drug abuse patient.[facility] Reason for Visit (unrecogniz ed section and content) Specialty Diagnoses / Procedures Referred By Contac t Referred To Contact [facility] Diagnoses Unsteady gait Procedures PT REHAB FOLLOW UP ORDER THERAPEUTIC EXERCISES RE, EA 15 MIN. Clement Lowery, PT [address] [place] [address] [facility] [place] [phone] Referral ID Status Reason Start Date Expiration Date V isits Requested Visits Authorized [id number] Closed PCP Requested Referral Auto-Generated Referral 09/29/2021 12/30/2021 8 8 Reason Comments PT Eval Patient Education Specialty Diagnoses / Procedures Referred By Contac t Referred To Contact [facility] Diagnoses Unsteady gait Procedures CONSULT TO PHYSICAL THERAPY PHYSICAL THERAPY EVALUATION HIGH COMPLEX 45 MINS Sammy Perez MD [address] [place] [address] Pt [facility] [address] [place] [address] Referral ID Status Reason Start Date Expiration Date V isits Requested Visits Authorized [id number] Closed Auto-Generate d Referral 09/16/2021 07/10/2022 1 1 Reason Comments egd 3 year repeat needs ordered d/t Chappell's. Treats with protonix Reason Comments Physical Therapy Specialty Diagnoses / Procedures Referred By Contac t Referred To Contact [facility] Diagnoses Unsteady gait Procedures PT REHAB FOLLOW UP ORDER THERAPEUTIC EXERCISES RE, EA 15 MIN. Clement Lowery, PT [address] [place] [address] [facility] [place] [address] Referral ID Status Reason Start Date Expiration Date Visits Requested Visits Authorized [id number] Authorized PCP Requested Referral Auto-Generate d Referral 09/29/2021 12/30/2021 8 8 Reason Comments Physical Therapy PT Progress Note Reason Comments Procedure EGD Wood Handler - Other Reason Onset Date Comments F/U 6 months Immunizations 03/17/2022 Flu vaccination Reason Onset Date Comments Refill Request 04/09/2022 Reason Comments Fall Reason Comments ED Follow-up Removal of sutures o n left elbow Reason Comments urinary symptoms Reason Comments Follow Up Reason Comments Patient Update Reason Comments ER F/U UTI & hyponatremia - [facility] 06/03/22 Reason Comments F/U 6 months Reason Comments Consult EGD Reason Comments Orders Reason Comments Follow Up EGD Reason Onset Date Comments Refill Request 03/15/2023 Reason Onset Date Comments Refill Request 04/01/2023 Reason Comments Cough started about 2 week s with a sore throat at that time.Treated with Delsym.Moist productive at times with clear to yellow sputum Reason Comments Patient Question Care Teams (unrecognized sec tion and content) Project Internship Relationship Specialty Start Date End Date Sammy Perez MD [facility] [place] [address] PCP - General 05/01/02 Project Internship Relationship Specialty Start Date End Date Sammy Perez MD [address] [place] [address] [place] [address] PCP - General 05/01/02 Project Internship Relationship Specialty Start Date End Date Sammy Perez MD [address] [place] [address] [place] [address] PCP - General 05/01/02 Project Internship Relationship Specialty Start Date End Date Sammy Perez MD [address] [place] [address], [place] [address] PCP - General 05/01/02 Project Internship Relationship Specialty Start Date End Date Sammy Perez MD [address] [place] [address] [place] [address] PCP - General 05/01/02 Project Internship Relationship Specialty Start Date End Date Sammy Perez MD [address] [place] [address], [place] [address] PCP - General 05/01/02 Project Internship Relationship Specialty Start Date End Date Sammy Perez MD [address] [place] [address], [place] [address] PCP - General 05/01/02 Project Internship Relationship Specialty Start Date End Date Sammy Perez MD [address] [facility] [place] [address] PCP - General 05/01/02 Project Internship Relationship Specialty Start Date End Date Sammy Perez MD [address] [facility] [place] [address] PCP - General 05/01/02 Project Internship Relationship Specialty Start Date End Date Sammy Perez MD [address] [facility] [place] [address] PCP - General 05/01/02 Project Internship Relationship Specialty Start Date End Date Sammy Perez MD [address] [facility] [place] [address] PCP - General 05/01/02 Project Internship Relationship Specialty Start Date End Date Sammy Perez MD [facility] [place] [address] PCP - General 05/01/02 Project Internship Relationship Specialty Start Date End Date Sammy Perez MD [address] [facility] [place] [address] PCP - General 05/01/02 Project Internship Relationship Specialty Start Date End Date Sammy Perez MD [address] [facility] [place] [address] PCP - General 05/01/02 Project Internship Relationship Specialty Start Date End Date Sammy Peerz MD [address] [facility] [place] [address] PCP - General 05/01/02 Project Internship Relationship Specialty Start Date End Date Sammy Perez MD [address] [facility] [place] [address] PCP - General 05/01/02 Project Internship Relationship Specialty Start Date End Date Sammy Perez MD [address] [place], [place] [id number] PCP General 05/01/02 Project Internship Relationship Specialty Start Date End Date Sammy Perez MD [address] [place], [place] [address] PCP General 05/01/02 Project Internship Relationship Specialty Start Date End Date Sammy Perez MD [address] [place], [place] [id number] PCP General 05/01/02 Project Internship Relationship Specialty Start Date End Date Sammy Perez MD [address] [place], [place] [id number] [facility] 05/01/02 INFORMATION SOURCE (unrecogn ized section and content) FOR RECORDS PERTAINING TO PATIENTS WHO ARE OR HAVE BEEN ENROLLED IN A CHEMICAL DEPENDENCY/SUBSTANCEABUSE PROGRAM, SOME INFORMATION MAY BE OMITTED. This clinical summary was aggregated from multiple sources. Caution should be exercised in using it in the provision of clinical care. This summary normalizes information from multiple sources, and as a consequence, information in this document may materially change the coding, format and clinical context of patient data. In addition, data may be omitted in some cases. CLINICAL DECISIONS SHOULD BE BASED ON THE PRIMARY CLINICAL RECORDS. [email or web address] [facility]. provides no warranty or guarantee of the accuracy or completeness of information in this document.
[2023-08-08 14:27] LABS: Absolute Lymphocyte Count 1.74 X10^3/uL (0.83-4.51); Absolute Neutrophil Count 7.4 X10^3/uL (2.0-7.7); Basophil# 0.07 X10^3/uL; Basophil% 0.7 % (0-1); Eosinophil# 0.16 X10^3/uL; Eosinophils% 1.5 % (0-5); Hematocrit 38.4 % (37-47); Hemoglobin 12.1 g/dL (12.0-15.0); Lymphocyte # 1.74 X10^3/ul (0.83-4.51); Lymphocyte % 16.3 % (19-41); Mean Corp Hgb Conc 31.5 g/dL (32-36); Mean Corpuscular Volume 88.9 fL (81-99); Mean Platelet Vol. 11.6 fl (6.2-12.0); Monocyte% 11.2 % (0-10); NRBC Flagged by Analyzer 0 % (0-5); Neutrophil # 7.44 X10^3/uL (2.7-7.7); Neutrophil % 69.7 % (47-70); Platelet Count 189 K/mm3 (150-450); RBC Distribution Width CV 13.3 % (11.6-14.6); RBC Distribution Width SD 43.5 fl (35.1-43.9); Red Blood Count 4.32 M/mm3 (4.2-5.4); White Blood Count 10.7 K/mm3 (4.4-11.0)
[2023-08-08 14:51] LABS: Anion Gap 8 (5-15); BUN 16 mg/dL (7-18); BUN/Creat Ratio 17.8 RATIO (10-20); Calcium,Total 9.1 mg/dL (8.5-10.1); Chloride 104 mmol/L (98-107); EST Glomerular Filtration Rate 64 mL/min (>60); Est Glom Filt Rate - Afr Amer 78 mL/min (>60); Glucose 103 mg/dL (74-106); Potassium 3.9 mmol/L (3.5-5.1); Sodium Level 138 mmol/L (136-145)
== END | disposition home or self-care (01) ==
PROVIDERS: PCP Internal Medicine; Referring Provider Orthopaedic Surgery; Visit Provider Orthopaedic Surgery
DX: Z01.818 Encounter for other preprocedural examination (principal); Z01.810 Encounter for preprocedural cardiovascular examination; Z01.811 Encounter for preprocedural respiratory examination; I10 Essential (primary) hypertension; E78.00 Pure hypercholesterolemia, unspecified
CPT/HCPCS: 36415; 71046; 80048; 85025; 93005

== ENCOUNTER → 2023-09-02 | Outpatient (CLI) | payer MEDICARE, SELFPAY ==
--- NOTE | 2023-09-02 07:15 | KNEE_PTH ---
PATHOLOGY RESULTS PATIENT: [facility] AL[facility]IDA [facility][id number] AGE/SX: 78/F ROOM: RE09/02/[address]: Dr. Tashi Dominguez MD : 1945 BED: DIS: 09/02/2023 SPEC #: [id number] RECD: 09/05/23 10:21 STATUS: JOCELYN REMalik #: [id number] NEGRITA: 09/02/23 07:[address]: Tashi Dominguez DEPT: SURGICAL PATHOLOGY RECD BY: Tona Verdin ENTERED: 09/05/23 10:21 SP TYPE: TOTAL KNEE OTHR DR: Dr. Sammy Aleman MD [facility] Tissues: Knee, NOS Procedures: Decalcification bone/plaque Surgery Specimen Level IV HEADER OPERATION: Left total knee replacement PRE-OP DIAGNOSIS: Grade 4 posttraumatic osteoarthritis left knee TISSUE SUBMITTED: Left knee bone and soft tissue MICROSCOPIC DIAGNOSIS Bone and soft tissue, left knee, total knee replacement/resection: Pieces of bone with degenerative osteoarthritic changes. Fibroadipose tissue, fibroconnective tissue and reactive synovial tissue. EVERT:jenna 09/08/2023 MICROSCOPIC DESCRIPTION Slides are reviewed. GROSS DESCRIPTION Received is one container designated bone and soft tissue left knee. The specimen consists of multiple fragments of bustamante-yellow bone measuring in aggregate 8.0 x 8.0 x 3.0 cm. Also in the specimen container are multiple fragments of yellow-white soft tissue measuring in aggregate 6.0 x 5.0 x 2.0 cm. A number of bony fragments contain articular surfaces consistent with tibial plateau and femoral condyle and displaying prominent osteophyte formation, eburnation and bone erosion. Counselling Psychologist sections are submitted in two cassettes as follows: 1 - soft tissue, 2 - bone after decalcification. / EVERT:jenna 09/05/2023 TC:5 CPT: 66426, [id number]
--- OUTSIDE RECORDS SUMMARY | 2023-09-02 18:30 | XMS RPT_ITS | CCD ---
Author Name Unknown Address [facility] [address] [place] [address] Organization [facility] Care Team Providers Care 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 Name Role Phone Chris GANN, Sammy Manzanares Primary Care Provider CHRIS, SAMMY Manzanares Primary Care Unavailable PEREZ, SAMMY Manzanares Attending Unavailable PEREZ, SAMMY Manzanares Primary Care Unavailable PEREZ, SAMMY Manzanares Referring Unavailable PEREZ, SAMMY Manzanares Primary Care Unavailable SANTANA PROCTOR Referring Unavailable GIBSON HUNTER Attending Unavailable PEREZ, SAMMY Manzanares Primary Care Unavailable PEREZ, SAMMY Manzanares Referring Unavailable HITESH, SANTANA Attending Unavailable PEREZ, SAMMY Manzanares Primary Care Unavailable PEREZ, SAMMY Manzanares Referring Unavailable PEREZ, SAMMY Manzanares Primary Care Unavailable PEREZ, SAMMY Manzanares Referring Unavailable PEREZ, SAMMY Manzanares Attending Unavailable PEREZ, SAMMY Manzanares Attending Unavailable PEREZ, SAMMY Manzanares Primary Care Unavailable PEREZ, SAMMY Manzanares Primary Care Unavailable PEREZ, SAMMY Manzanares Attending Unavailable SANDRA, ROSA Attending Unavailable PEREZ, SAMMY Manzanares Primary Care Unavailable PEREZ, SAMMY Manzanares Primary Care Unavailable HITESH, SANTANA Attending Unavailable Medications Current Medications Medication Drug Class(es) [...] 64.41 kg Rufus Flores APRN.CNP Work Phone: [facility] 05-06-2023 13:06-0400 Diastolic blood pressure 72 mm[Hg] Rufus Flores APRN.CNP Work Phone: [facility] 05-06-2023 13:06-0400 Heart rate 89 /min Rufus Sandra HEALTH CARE MANAGER.HOSPICE HOME CARE COORDINATOR Work Phone: [facility] 05-06-2023 13:06-0400 SaO2% (BldA) [Mass fraction] 98 % Rufus Sandra HEALTH CARE MANAGER.HOSPICE HOME CARE COORDINATOR Work Phone: [facility] 05-06-2023 13:06-0400 Systolic blood pressure 130 mm[Hg] Rufus Sandra HEALTH CARE MANAGER.HOSPICE HOME CARE COORDINATOR Work Phone: [facility] 12-21-2022 09:55-0400 Body height 157.5 cm Santana Hitesh PA-C Work Phone: [facility] 12-21-2022 09:55-0400 Body temperature 96.69 [degF] Santana Hitesh PA-C Work Phone: [facility] 12-21-2022 09:55-0400 Body weight 63.05 kg Santana [place] PA-C Work Phone: [facility] 12-21-2022 09:55-0400 Diastolic blood pressure 78 mm[Hg] Santana Hitesh PA-C Work Phone: [facility] 12-21-2022 09:55-0400 Heart rate 77 /min Santana [place] PA-C Work Phone: [facility] 12-21-2022 09:55-0400 SaO2% (BldA) [Mass fraction] 96 % Santana [place] PA-C Work Phone: [facility] 12-21-2022 09:55-0400 Systolic blood pressure 118 mm[Hg] Santana Hitesh PA-C Work Phone: [facility] 12-14-2022 12:30-0400 Diastolic blood pressure 58 mm[Hg] Gibson Hunter MD Work Phone: [facility] 12-14-2022 12:30-0400 Heart rate 69 /min Gibson Hunter MD Work Phone: [facility] 12-14-2022 12:30-0400 Respiratory rate 16 /min Gibson Hunter MD Work Phone: [facility] 12-14-2022 12:30-0400 SaO2% (BldA) [Mass fraction] 95 % Gibson Hunter MD Work Phone: [facility] 12-14-2022 12:30-0400 Systolic blood pressure 118 mm[Hg] Gibson Hunter MD Work Phone: [facility] 12-14-2022 10:37-0400 Body temperature 97.2 [degF] Gibson Hunter MD Work Phone: [facility] 09-24-2022 09:18-0400 Body height 157.5 cm Santana Hitesh PA-C Work Phone: [facility] 09-24-2022 09:18-0400 Body temperature 97.59 [degF] Santana [place] PA-C Work Phone: [facility] 09-24-2022 09:18-0400 Body weight 63.5 kg Santana Hitesh PA-C Work Phone: [facility] 09-24-2022 09:18-0400 Diastolic blood pressure 64 mm[Hg] Santana [place] PA-C Work Phone: [facility] 09-24-2022 09:18-0400 Heart rate 82 /min Santana [place] PA-C Work Phone: [facility] 09-24-2022 09:18-0400 SaO2% (BldA) [Mass fraction] 100 % Santana [place] PA-C Work Phone: [facility] 09-24-2022 09:18-0400 Systolic blood pressure 130 mm[Hg] Santana Hitesh PA-C Work Phone: [facility] 09-14-2022 10:36-0500 Body weight 63.05 kg Sammy Perez MD Work Phone: [facility] 09-14-2022 10:36-0500 Diastolic blood pressure 70 mm[Hg] Sammy Perez MD Work Phone: [facility] 09-14-2022 10:36-0500 Heart rate 68 /min Sammy Perez MD Work Phone: [facility] 09-14-2022 10:36-0500 Respiratory rate 16 /min Sammy Perez MD Work Phone: [facility] 09-14-2022 10:36-0500 Systolic blood pressure 116 mm[Hg] Sammy Perez MD Work Phone: [facility] 06-11-2022 10:00-0500 Body temperature 97 [degF] Sammy Perez MD Work Phone: [facility] 06-11-2022 10:00-0500 Body weight 62.82 kg Sammy Perez MD Work Phone: [facility] 06-11-2022 10:00-0500 Diastolic blood pressure 82 mm[Hg] Sammy Perez MD Work Phone: [facility] 06-11-2022 10:00-0500 Heart rate 81 /min Sammy Perez MD Work Phone: [facility] 06-11-2022 10:00-0500 Respiratory rate 16 /min Sammy Perez MD Work Phone: [facility] 06-11-2022 10:00-0500 SaO2% (BldA) [Mass fraction] 98 % Sammy Perez MD Work Phone: [facility] 06-11-2022 10:00-0500 Systolic blood pressure 144 mm[Hg] Sammy Perez MD Work Phone: [facility] 04-29-2022 10:22-0400 Body temperature 97.2 [degF] Sammy Perez MD Work Phone: [facility] 04-29-2022 10:22-0400 Body weight 63.96 kg Sammy Perez MD Work Phone: [facility] 04-29-2022 10:22-0400 Diastolic blood pressure 72 mm[Hg] Sammy Perez MD Work Phone: [facility] 04-29-2022 10:22-0400 Heart rate 72 /min Sammy Perez MD Work Phone: [facility] 04-29-2022 10:22-0400 Respiratory rate 16 /min Sammy Perez MD Work Phone: [facility] 04-29-2022 10:22-0400 SaO2% (BldA) [Mass fraction] 96 % Sammy Perez MD Work Phone: [facility] 04-29-2022 10:22-0400 Systolic blood pressure 146 mm[Hg] Sammy Perez MD Work Phone: [facility] 03-17-2022 11:09-0400 Diastolic blood pressure 77 mm[Hg] Sammy Perez MD Work Phone: [facility] 03-17-2022 11:09-0400 Heart rate 63 /min Sammy Perez MD Work Phone: [facility] 03-17-2022 11:09-0400 Systolic blood pressure 149 mm[Hg] Sammy Perez MD Work Phone: [facility] 03-17-2022 10:55-0400 Body temperature 97.2 [degF] Sammy Preez MD Work Phone: [facility] 03-17-2022 10:55-0400 Body weight 63.5 kg Sammy Perez MD Work Phone: [facility] 03-17-2022 10:55-0400 Respiratory rate 16 /min Sammy Perez MD Work Phone: [facility] 11-02-2021 13:26-0400 Body height 156 cm Mayra Rico HEALTH CARE MANAGER.HOSPICE HOME CARE COORDINATOR Work Phone: [facility] 11-02-2021 13:26-0400 Body weight 63.96 kg Mayra Rico HEALTH CARE MANAGER.HOSPICE HOME CARE COORDINATOR Work Phone: [facility] 11-02-2021 13:26-0400 Diastolic blood pressure 62 mm[Hg] Mayra Rico HEALTH CARE MANAGER.HOSPICE HOME CARE COORDINATOR Work Phone: [facility] 11-02-2021 13:26-0400 Heart rate 77 /min Mayra Rico HEALTH CARE MANAGER.HOSPICE HOME CARE COORDINATOR Work Phone: [facility] 11-02-2021 13:26-0400 SaO2% (BldA) [Mass fraction] 97 % Mayra Rico HEALTH CARE MANAGER.HOSPICE HOME CARE COORDINATOR Work Phone: [facility] 11-02-2021 13:26-0400 Systolic blood pressure 130 mm[Hg] Mayra Rico HEALTH CARE MANAGER.HOSPICE HOME CARE COORDINATOR Work Phone: [facility] Encounters Encounter Date Encounter Type Care Provider Facility Start: 08-12-2023 End: 08-12-2023 ambulatory SAMMY PEREZ Facility:[facility] Start: 06-21-2023 End: 06-21-2023 ambulatory SAMMY PEREZ Facility:[facility] Start: 05-30-2023 Telephone encounter Sammy lepe MD [...] Detail Author Start: 04-13-2032 Urine microalbumin profile [facility] Start: 08-30-2027 Urine microalbumin profile DTAP,TDAP,TD (2 - Td or Tdap) [facility] Start: 12-16-2025 DIABETES SCREEN DIABETES SCREEN [facility] Start: 12-16-2025 Diabetes Screening Diabetes Screening [facility] Start: 09-16-2025 DIABETES SCREEN DIABETES SCREEN [facility] Start: 06-11-2025 DIABETES SCREEN DIABETES SCREEN [facility] Start: 06-07-2025 DIABETES SCREEN DIABETES SCREEN [facility] Start: 06-01-2025 DIABETES SCREEN DIABETES SCREEN [facility] Start: 09-17-2024 DIABETES SCREEN DIABETES SCREEN [facility] Start: 05-06-2024 Annual PCP Team Chronic Disease Visit Annual PCP Team Chronic Disease Visit [facility] Start: 12-22-2023 BP CONTROLLED (<130/80) BP CONTROLLED (<130/80) [facility] Start: 12-18-2023 ANNUAL PCP TEAM CHRONIC DISEASE VISIT ANNUAL PCP TEAM CHRONIC DISEASE VISIT [facility] Start: 09-15-2023 ANNUAL PCP TEAM CHRONIC DISEASE VISIT ANNUAL PCP TEAM CHRONIC DISEASE VISIT [facility] Start: 09-15-2023 BP CONTROLLED (<130/80) BP CONTROLLED (<130/80) [facility] Start: 08-01-2023 Covid-19 Vaccine (6 - Moderna series) Covid-19 Vaccine (6 - Moderna series) [facility] Start: 06-11-2023 ANNUAL PCP TEAM CHRONIC DISEASE VISIT ANNUAL PCP TEAM CHRONIC DISEASE VISIT [facility] Start: 06-02-2023 ANNUAL PCP TEAM CHRONIC DISEASE VISIT ANNUAL PCP TEAM CHRONIC DISEASE VISIT [facility] Start: 06-01-2023 ANNUAL PCP TEAM CHRONIC DISEASE VISIT ANNUAL PCP TEAM CHRONIC DISEASE VISIT [facility] Start: 04-29-2023 ANNUAL PCP TEAM CHRONIC DISEASE VISIT ANNUAL PCP TEAM CHRONIC DISEASE VISIT [facility] Start: 03-17-2023 ANNUAL PCP TEAM CHRONIC DISEASE VISIT ANNUAL PCP TEAM CHRONIC DISEASE VISIT [facility] Start: 03-11-2023 Influenza vaccination [facility] Start: 12-13-2022 End: 02-12-2023 Comprehensive metabolic 2000 panel - Serum or Plasma COMP METABOLIC PANEL Lab Routine Elevated liver function tests Expected: 12/13/2022, Expires: 02/12/2023 [facility] Work Phone: Immunizations Immunization Date Immunization Notes Care Provider Fa cility 04-01-2023 COVID-19 vaccine, ag e 12+ yr, season (MODERNA) Sammy Perez MD Work Phone: [facility] Work Phone: 04-13-2022 tetanus toxoid, reduced diphtheria toxoid, and acellular pertussis vaccine, adsorbed Sammy Perez MD Work Phone: [facility] 03-17-2022 influenza, high-dose , quadrivalent vaccine (FLUZONE HIGH DOSE QUADRIVALENT) Sammy Perez MD Work Phone: [facility] Work Phone: 03-17-2022 pneumococcal (PCV20) vaccine, 20 valent (PREVNAR 20) Sammy Perez MD Work Phone: [facility] Work Phone: 03-17-2022 pneumococcal Conjugate, unspecified formulation Sammy Perez MD Work Phone: [facility] Work Phone: 03-17-2022 influenza virus vaccine, unspecified formulation Sammy Perez MD Work Phone: [facility] 03-19-2021 influenza, high dose seasonal, preservative-free Gissel Shea PT Work Phone: [facility] 03-18-2021 influenza, high-dose , quadrivalent vaccine (FLUZONE HIGH DOSE QUADRIVALENT) Gissel Shea PT Work Phone: [facility] Work Phone: 09-01-2020 COVID-19 vaccine, fu ll dose (MODERNA) Gissel Shea PT Work Phone: [facility] Work Phone: 08-04-2020 COVID-19 vaccine, fu ll dose (MODERNA) Gissel Shea PT Work Phone: [facility] Work Phone: 03-07-2020 influenza, high dose seasonal, preservative-free Gissel Shea PT Work Phone: [facility] Work Phone: 04-12-2019 influenza, high dose seasonal, preservative-free Gissel Shea PT Work Phone: [facility] Work Phone: 05-27-2018 zoster vaccine recombinant Gissel Shea PT Work Phone: [facility] Work Phone: 04-17-2018 influenza, high dose seasonal, preservative-free Gissel Shea PT Work Phone: [facility] Work Phone: 08-30-2017 tetanus toxoid, reduced diphtheria toxoid, and acellular pertussis vaccine, adsorbed Gissel Shea PT Work Phone: [facility] Work Phone: 08-30-2017 zoster vaccine recombinant Gissel Shea PT Work Phone: [facility] Work Phone: 03-26-2017 influenza, seasonal, injectable Gissel Shea PT Work Phone: [facility] 04-16-2016 influenza, high dose seasonal, preservative-free Gissel Shea PT Work Phone: [facility] 03-18-2015 influenza, seasonal, injectable Gissel Shea PT Work Phone: [facility] Work Phone: 10-28-2014 pneumococcal conjuga te vaccine, 13 valent Gissel Shea PT Work Phone: [facility] 04-10-2014 influenza, high dose seasonal, preservative-free Gissel Shea PT Work Phone: [facility] Work Phone: 04-05-2013 influenza virus vaccine, unspecified formulation Gissel Shea PT Work Phone: [facility] 04-07-2012 influenza virus vaccine, unspecified formulation Gissel Shea PT Work Phone: [facility] Work Phone: 04-13-2011 influenza virus vaccine, unspecified formulation Gissel Shea PT Work Phone: [facility] Work Phone: 04-14-2010 influenza virus vaccine, unspecified formulation Gissel Shea PT Work Phone: [facility] Work Phone: 08-18-2009 zoster vaccine, live Gissel Lev rrison PT Work Phone: [facility] Work Phone: 06-24-2009 novel [id number], preservative-free, injectable Gissel Shea PT Work Phone: [facility] Work Phone: 04-10-2009 pneumococcal conjuga te vaccine, 7 valent Gissel Shea PT Work Phone: [facility] 03-31-2009 influenza virus vaccine, unspecified formulation Gissel Shea PT Work Phone: [facility] Work Phone: 07-17-2007 tetanus and diphther ia toxoids, adsorbed, preservative free, for adult use (2 Lf of tetanus toxoid and 2 Lf of diphtheria toxoid) Gissel Shea PT Work Phone: [facility] Work Phone: 05-10-2007 influenza virus vaccine, unspecified formulation Gissel Shea PT Work Phone: [facility] Work Phone: 05-11-2005 influenza virus vaccine, unspecified formulation Gissel Shea PT Work Phone: [facility] Work Phone: Payers Date Payer Category Payer Medicare [employer] MEDICARE [employer] MEDICARE PPO [id number] 2011-Present [phone] [address] [address] [place] [address] PPO [id number] 2011 Medicare [id number] 2011 Medicare [id number] Social History Date Type Detail Facility Start: 04-29-2022 Tobacco smoking stat us NHIS Ex-smoker [facility] End: 09-22-1990 History of tobacco use Current smoker [facility] Work Phone: Start: 09-10-2021 End: 05-06-2023 Alcohol intake Ex-drinker (finding) [facility] Start: 09-10-2021 End: 12-17-2022 Alcohol intake [facility] Start: 09-16-2021 End: 06-01-2022 History SDOH Alcohol Frequency 5 [facility] Start: 09-16-2021 End: 06-01-2022 History SDOH Alcohol Std Drinks 1 [facility] Start: 09-16-2021 End: 06-01-2022 History SDOH Social Connections Get Together 3 [facility] Start: 09-16-2021 End: 06-01-2022 History SDOH Stress 2 [facility] Start: 09-16-2021 End: 06-01-2022 History SDOH Financial 4 [facility] Start: 08-08-2019 Education 17 [facility] Start: 1945 Sex Assigned At Female C [facility] Start: 08-17-2021 End: 06-11-2022 Exposure to SARS-CoV-2 (event) Not sure [facility] End: 09-22-1990 History of tobacco use Cigarette Smoker [facility] Work Phone: Start: 03-15-2022 End: 06-01-2022 History SDOH Social Connections Jewish 98 [facility] Start: 04-29-2022 Tobacco use and exposure Smokeless tobacco non-user [facility] Start: 06-01-2022 End: 12-17-2022 Social connection and isolation panel [facility] How often do you att end amish or latter-day services? Patient refused [facility] Are you now , , , , never or living with a partner? [facility] How often to you hav e a drink containing alcohol? 2-3 time sa week [facility] How many standard drinks containing alcohol do you have on a typical day? 1 or 2 [facility] How often do you hav e 6 or more drinks on 1 occasion? Never [facility] Do you feel stress - tense, restless, nervous, or anxious, or unable to sleep at night because your mind is troubled all the time - these days [OSQ] To some extent [facility] (I/We) worried wheth er (my/our) food would run out before (I/we) got money to buy more. Never true [facility] In the past 12 month s, was there a time when you were not able to pay the mortgage or rent on time? No [facility] Start: 01-08-2019 Gender identity Identifies as female gender (finding) [facility] Start: 01-08-2019 Sexual orientation Heterosexual (fin ding) [facility] Clinical Notes 04-24-2015 to 08-12-2023 Telephone Encounter - Edinson Barrios RN - 05/30/2023 1:16 PM ESTTelephone Encounter - Emily Crews APRN.CNP - 05/30/2023 12:16 PM ESTTelephone Encounter - Susan Carranza - 05/30/2023 11:21 AM EST Note Date & Type Note Facility 08-12-2023 Note HNO ID: [id number] Author: SAMMY PEREZ MD Service: ? Author Type: Physician Type: Progress Notes Filed: 08/13/2023 16:03 Note Text: This note was created using DefenCall[employer]. Subjective Patient presents with: Pre-Op Exam Consultation requested by Dr. Tashi Dominguez for an opinion regarding preoperative risk. My final recommendations will be communicated back to the requesting physician by way of shared Medical record or letter. Petra Haro is a 78 year old female scheduled for left total knee arthroplasty . She had no history of heart disease, blood clots, bleeding tendencies,or adverse effects from anesthesia. Hypertension was historically controlled. Review of Systems Constitutional: Negative for fever and unexpected weight change. Respiratory: Negative for cough, chest tightness and shortness of breath. Cardiovascular: Negative for chest pain, palpitations and leg swelling. Gastrointestinal: Negative for diarrhea, nausea and vomiting. Genitourinary: Negative for difficulty urinating and dysuria. Neurological: Negative for dizziness and headaches. PAST MEDICAL HISTORY Diagnosis Date Acquired musculoskeletal deformity of other specified site Acute pancreatitis Arthritis 2011 in fingers/hands Arthritis of left knee 03/17/2022 Dr. 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 HTN (hypertension) 11/08/2013 Hyperlipemia 08/13/2005 Irritable bowel syndrome Knee pain, left 06/21/2011 Lichen planus Low back pain, non-specific 06/13/2017 Injections as needed, Dr. Skylar Martinez. 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 Tashi Dominguez COLONOSCOPY 09/2004 repeat 5-10 years COLONOSCOPY FLX DX W/COLLJ SPEC WHEN PFRMD 06/13/2013 Colonoscopy EGD TRANSORAL BIOPSY SINGLE/MULTIPLE 07/24/2008 EGD W W/O BRUSH WASH 03/03/2017 EGD WITH BIOPSY(S) 12/14/2022 ESOPHAGOGASTRODUODENOSCOPY TRANSORAL DIAGNOSTIC 02/10/2011 EGD ESOPHAGOGASTRODUODENOSCOPY TRANSORAL DIAGNOSTIC 06/13/2013 EGD repeat 2 years ESOPHAGOGASTRODUODENOSCOPY TRANSORAL DIAGNOSTIC 04/24/2015 EGD EYE SURGERY HX PAST SURGICAL HISTORY OF 1993 BLADDER REPAIR PAST SURGICAL HISTORY OF 01/2004 benign right breast biopsy PAST SURGICAL HISTORY OF 04/17/2001 cataract surgery SKIN BIOPSY HX TONSILLECTOMY HX TONSILLECTOMY PRIMARY/SECONDARY Tonsillectomy TOTAL ABDOMINAL HYSTERECT W/WO RMVL TUBE OVARY 1993 Hysterectomy, [facility] VAGINAL HYSTERECTOMY Social History Tobacco Use Smoking status: Former Types: Cigarettes Quit date: 09/22/1990 Years since quittin.9 Smokeless tobacco: Never Vaping Use Vaping Use: Never used Substance Use Topics Alcohol use: Not Currently Alcohol/week: 7.0 standard drinks of alcohol Types: 7 Glasses of Wine (5oz) per week Comment: occasionally wine Drug use: No ALLERGIES No Known Allergies Current Outpatient Medications Medication Sig LORazepam (ATIVAN) [...] facility-administered medications for this visit. Objective BP (P) 130/70 (BP Site: Left Arm, BP Position: Sitting, BP Cuff Size: Regular Adult) Pulse (P) 66 Wt (P) 63 kg (139 lb) BMI (P) 25.42 kg/m? Physical Exam Constitutional: Appearance: Normal appearance. HENT: Head: Normocephalic. Eyes: Conjunctiva/sclera: Conjunctivae normal. Cardiovascular: Rate and Rhythm: Normal rate and regular rhythm. Heart sounds: No murmur heard. No gallop. Pulmonary: Breath sounds: Normal breath sounds. Abdominal: General: Abdomen is flat. Neurological: General: No focal deficit present. Mental Status: She is alert. Psychiatric: Mood and Affect: Mood normal. Outside test results completed 08/08/23: CBC, BMP, EKG, Chest xray were unremarkable. Assessment and Plan (more content not included)... [facility] 06-21-2023 Note HNO ID: [id number] Author: Sammy Perez MD Service: ? Author Type: Physician Type: Progress Notes Filed: 06/21/2023 9:39 AM Note Text: This note was created using Fanwards. Subjective Petra Haro is a 77 year [...] needed from primary care. Sammy Perez MD [facility] 05-30-2023 Miscellaneous Notes Phoned patient and given provider's message below with verbalized understanding. Patient is not due for routine labs Emily Crews APRN.LILA Pt wondering if she needs labs drawn before 6 month follow up on 06/21, please review and advise. Susan Carranza May 30, 2023 11:22 AM documented in this encounter [facility] 05-06-2023 Note HNO ID: [id number] Author: Rufus Flores APRN.LILA Service: ? Author Type: Nurse Practitioner Type: [...] - BENZONATATE 100 (more content not included)... [facility] 05-06-2023 History of Present illness Narrative SUBJECTIVE [...] Rufus Flores APRN-LILA documented in this encounter [facility] 04-04-2023 Miscellaneous Notes The following approved medication [...] at bedtime. Please review and advise. Ana Lopez documented in this encounter [facility] 03-15-2023 Miscellaneous Notes Patient has been identified [...] advise. Gaby Richards documented in this encounter [facility] 12-21-2022 Note HNO ID: [id number] Author: Santana Proctor PA-C Service: ? Author Type: Physician Hrbp Type: Progress Notes Filed: 12/27/2022 1:50 PM Note Text: FOLLOW UP VISIT - ENDOSCOPY NAME: Petra Haro [facility] NO.: [id number] DATE OF SERVICE: 12/21/2022 : 1945 REFERRING [...] which included preparing to see the patient, [id number] patient care, completing clinical documentation, obtaining and/or reviewing separately obtained history, counseling and educating the patient/family/caregiver, independently interpreting results (not separately reported), and communicating results to the patient/family/caregiver. Santana Proctor PA-C [facility] 12-21-2022 Instructions Santana Proctor PA-C - 12/21/2022 10:08 AM EDT -Repeat EGD in 3 years for surveillance of Chappell's and stomach intestinal metaplasia documented in this encounter [facility] 12-21-2022 History of Present illness Narrative FOLLOW UP VISIT - ENDOSCOPY NAME: Petra Haro [facility] NO.: [id number] DATE OF SERVICE: 12/21/2022 : 1945 REFERRING [...] which included preparing to see the patient, [id number] patient care, completing clinical documentation, obtaining and/or reviewing separately obtained history, counseling and educating the patient/family/caregiver, independently interpreting results (not separately reported), and communicating results to the patient/family/caregiver. Santana Proctor PA-C documented in this encounter [facility] 12-17-2022 Note HNO ID: [id number] Author: Sammy Perez MD Service: ? Author Type: Physician Type: Progress Notes Filed: 12/18/2022 1:44 PM Note Text: This note was created using DefenCallriter. Subjective Petra Haro is a 77 year [...] - Continue current medications Sammy Perez MD [facility] 12-17-2022 Note HNO ID: [id number] Author: Sammy Perez MD Service: ? Author [...] Concerns with sexual function: Not at all [place] anxious, stressed, angry, irritable, lonely, isolated, or [...] exercise - Fall avoidance - Depression screening [facility] 12-14-2022 Note HNO ID: [id number] Author: Altagracia Sparks RN Service: ? Author Type: Registered Nurse Type: Nursing Progress Note Filed: 12/14/2022 12:16 PM Note Text: Abdomen soft non-distended. Will continue to monitor. [facility] 12-14-2022 Nurse Note Abdomen soft non-distended. Will continue to monitor. documented in this encounter [facility] 12-14-2022 History and physical note UPDATED PROCEDURAL [...] patient was offered a surgery/procedure at a [facility] facility. I have counseled the patient regarding [...] entered by the nurse and reviewed by nv Nursing Notes: Lina Rose LPN 09/24/2022 9:22 [...] patient was offered a surgery/procedure at a [facility] facility. I have counseled the patient regarding [...] Santana Proctor PA-C documented in this encounter [facility] 12-13-2022 Miscellaneous Notes Patient notified, verbalized understanding. Fasting blood chemistry ordered. Pt came in stated she needed labs before her next appointment with . No new labs were put in her active request. Please review and advise. Erendira PSS documented in this encounter [facility] 09-24-2022 Note HNO ID: [id number] Author: Santana Proctor PA-C Service: ? Author Type: Physician Hrbp Type: Progress Notes Filed: 09/24/2022 10:01 AM [...] entered by the nurse and reviewed by nv Nursing Notes: Lina Rose LPN 09/24/2022 9:22 AM Signed REVIEW OF SYSTEMS: General: The patient denies fatigue, denies weight loss, denies weight gain, denies feeling hot, and denies feelings of cold. Eyes: The patient denies glaucoma, denies eye injury/surgery, does not wear glasses or conta (more content not included)... [facility] 09-24-2022 History of Present illness Narrative HISTORY [...] Take 2 capsules by mouth once daily. Janeenstor pantoprazole DR (PROTONIX) 40 mg tablet Take [...] entered by the nurse and reviewed by nv Nursing Notes: Lina Rose LPN 09/24/2022 9:22 [...] patient was offered a surgery/procedure at a [facility] facility. I have counseled the patient regarding [...] Santana Proctor PA-C documented in this encounter [facility] 09-24-2022 Nurse Note REVIEW OF SYSTEMS: General: [...] Lina Rose LPN documented in this encounter [facility] 09-14-2022 Note HNO ID: [id number] Author: Sammy Perez MD Service: ? Author Type: Physician Type: Progress Notes Filed: 09/15/2022 2:44 PM Note Text: This note was created using Fanwards. Subjective Petra Haro is a 77 year old female. She was seeing Dr. Brand for podiatry as she had concerns about the side effects she had from another clinical research physician's prescription. She's had no recurrence of urinary [...] - Continue current medication. Sammy Perez MD [facility] 09-14-2022 Instructions Sammy Perez MD - 09/14/2022 11:09 AM EST DO FASTING BLOOD WORK ANY TIME SOON. documented in this encounter [facility] 09-14-2022 History of Present illness Narrative This note was created using Fanwards. Subjective Petra Haro is a 77 year old female. She was seeing Dr. Brand for podiatry as she had concerns about the side effects she had from another clinical research physician's prescription. She's had no recurrence of urinary [...] Sammy Perez MD documented in this encounter [facility] 06-11-2022 History of Present illness Narrative This note was created using Shoutletter. Subjective Patient presents with: ER F/U: UTI & hyponatremia -[facility] 06/03/22 Petra Haro is a 76 [...] was feeling much better. She called her gummed tape press operator and was started on amlodipine to replace [...] Sammy Perez MD documented in this encounter [facility] 06-07-2022 Miscellaneous Notes Pt called and is [...] start feeling worse so she went to [facility] ED and is being treated for UTI with Macrobid twice daily for 5 days . Patient reports that she will come in and have CBC completed once she is done with antibiotic and feeling a little bit better. Libby Diaz RN documented in this encounter [facility] 06-02-2022 History of Present illness Narrative This Team Access Model visit is a phone encounter. It required patient-provider interaction for the medical decision making as documented below. Patient agrees to the visit: Yes Patient Location: [place] CC: Patient presents with: Follow Up HPI [...] Emily Crews APRN.CNP documented in this encounter [facility] 06-01-2022 Miscellaneous Notes Patient notified and verbalized understanding. Goran Wan Ma Please call patient and make sure she reads her My Chart message with results of today's labs Emily Crews APRN.CNP documented in this encounter [facility] 05-31-2022 Miscellaneous Notes Patient calling with urinary [...] urination 6. : NO Protocols used: Urinary [id number] documented in this encounter [facility] 04-29-2022 History of Present illness Narrative This note was created using DefenCallriter. Subjective Patient presents with: ED Follow-up: Removal of sutures on left elbow Petra Haro is a 76 year old female who fell and had left elbow laceration sutured in the ER 04/11/22. This was well healed. Her hypertension medications were adjusted by her gummed tape press operator. Review of Systems Constitutional: Negative. ACTIVE PROBLEM [...] Sammy Perez MD documented in this encounter [facility] 04-14-2022 Miscellaneous Notes I agree. Pt's Marina [...] Ana Dietz LPN documented in this encounter [facility] 04-09-2022 Miscellaneous Notes Pharmacy verified in [facility] Patient has been identified by name [...] Edith Segura Pss documented in this encounter [facility] 03-17-2022 History of Present illness Narrative This note was created using DefenCallriter. Subjective Patient presents with: F/U 6 months Immunizations: Flu vaccination Petra Haro is a 76 year old female. Her hypertension was not at goal. Her gummed tape press operator switched medications due to edema from amlodipine. [...] dose. Further refills will be from her gummed tape press operator whom she will see later this month. [...] Sammy Perez MD documented in this encounter [facility] 12-28-2021 History of Present illness Narrative Episode [...] and treatment included: Therapeutic exercise, Neuromuscular re-education, Self-prison management and Patient/Family/Caregiver Education. Goals for Episode of Care: created on 09/28/21 through 12/07/21 updated 12/01/21 Patient will report no falls./ achieved Improve score on 30 Second Chair Stand to 12 repetitions to reflect decreased fall risk./ achieved [place] in home exercise program including cardiovascular exercise [...] Gissel Shea PT documented in this encounter [facility] 12-08-2021 History of Present illness Narrative Episode [...] Gissel Shea PT documented in this encounter [facility] 12-01-2021 History of Present illness Narrative Episode [...] to reflect decreased fall risk./ partially achieved [place] in home exercise program including cardiovascular exercise.partially achieved Patient Goals: feel more steady with walking, not so frightened/ partially achieved Planned Interventions, Frequency, and Duration: 1x/week, 4 weeks Total Number of Visits Planned: 4 Patient to be seen for Neuromuscular re-education (95289);Therapeutic exercise (77261);Self-prison management (26718) PLAN FOR NEXT VISIT: Continue with high [...] Gissel Shea PT documented in this encounter [facility] 11-27-2021 Miscellaneous Notes Patient was originally scheduled for EGD at [facility] with Tolu 01/05. Per patient wanted to be rescheduled and is now on for 02/09 with follow up being 02/16 Leeann, Can you please call patient to follow up with EGD and Colonoscopy. Lilliam Nunez Patient calls in to cancel EGD on 01/05/2022 and follow up with Mayra Rico on 01/19 d/t having extensive dental work done and won't be ready at that time for the procedure. Patient asking to reschedule EGD for end of January or early February. Libby Diaz RN Patient is scheduled at [facility] on 01/05/[address] Hunter for EGD. DX: Chappell's esophagus without dysplasia [K22.70 (ICD-10-CM)] Verbal and written instructions given. documented in this encounter [facility] 11-23-2021 History of Present illness Narrative Episode [...] Gissel Shea PT documented in this encounter [facility] 11-16-2021 History of Present illness Narrative Episode [...] Gissel Shea PT documented in this encounter [facility] 11-09-2021 History of Present illness Narrative Episode [...] Gissel Shea PT documented in this encounter [facility] 11-02-2021 Miscellaneous Notes Addended by: HEMA QUARLES LPN on: 11/02/2021 02:28 PM Modules accepted: Orders documented in this encounter [facility] 11-02-2021 Instructions Mayra Rico APRN.LILA - 11/02/2021 1:48 PM EDT Your procedure will be with - The endoscopy staff will call you the day before the procedure with specific on arrival time. (Tuesday for Tuesday procedures). Due for Colonoscopy 06/2023 documented in this encounter [facility] 11-02-2021 History of Present illness Narrative CHIEF COMPLAINT: Patient presents with: egd: 3 year repeat needs ordered d/t Chappell's. Treats with protonix This consult was requested by Sammy Perez MD for an opinion regarding Chappell's . My final recommendations will be communicated to the requesting health care provider by way of the shared medical record for internal providers or letter via the [employer] for external providers. Petra Haro [...] 1994 BLADDER REPAIR PAST SURGICAL HISTORY OF 01/11 benign right breast biopsy PAST SURGICAL HISTORY OF 04/17; 07/19 cataract surgery TONSILLECTOMY PRIMARY/SECONDARY <AGE 10 1950 Tonsillectomy TOTAL ABDOMINAL HYSTERECT W/WO RMVL TUBE OVARY 1994 Hysterectomy, [facility] Allergies: ALLERGIES No Known Allergies [...] both maternal grandparents Employer And Job Title: [employer] (retired) Years Of Education Completed: 16+ years [...] history of intestinal metaplasia in the stomach 2015 - Recommend EGD with esophageal and stomach [...] with more than 50% of the total pnxz-lg-quve time of the visit in counseling / coordination of care. I have confirmed and edited as necessary, the PFSH and ROS obtained by others. Mayra Rico APRN.CNP November 02, 2021 1:51 PM documented in this encounter [facility] 10-20-2021 History of Present illness Narrative Radiology [...] 2021 9:30 AM documented in this encounter [facility] 09-28-2021 History of Present illness Narrative Episode [...] 12 repetitions to reflect decreased fall risk. [place] in home exercise program including cardiovascular exercise. Patient Goals: feel more steady with walking, not so frightened Planned Interventions, Frequency, and Duration: Current Frequency: 1x/week Duration: 8 weeks Total Number of Visits Planned: 8 Planned Treatment Interventions: Therapeutic exercise (01660);Neuromuscular re-education (64739);Self-prison management (84255);Patient/Family/Caregiver Education PLAN FOR NEXT VISIT: Will work [...] Conditions: (left knee is bad) Preferred Language: Spanish Employment: Retired Hobbies / Interests: bridge clubs, [...] States/Identifies;Return Demonstration TREATMENT: PT Treatment Interventions: Therapeutic Exercise;Self-Shelter Management Evaluation Therapeutic Exercise: 1: sit to [...] was facilitated with verbal and visual cuing. Self-Shelter Management: 1: Reviewed home safety to prevent [...] Gissel Shea PT documented in this encounter [facility] documented as of this encounter (statuses as of 12/28/2021) [facility] History of Past illness Narrative* Problem Noted [...] of this encounter (statuses as of 03/17/2022) [facility] History of Past illness Narrative* Problem Noted [...] of this encounter (statuses as of 04/10/2022) [facility] History of Past illness Narrative* Problem Noted [...] of this encounter (statuses as of 04/14/2022) [facility] History of Past illness Narrative* Problem Noted [...] of this encounter (statuses as of 04/29/2022) [facility] History of Past illness Narrative* Problem Noted [...] of this encounter (statuses as of 05/31/2022) [facility] History of Past illness Narrative* Problem Noted [...] of this encounter (statuses as of 06/01/2022) [facility] History of Past illness Narrative* Problem Noted [...] of this encounter (statuses as of 06/02/2022) [facility] of Past illness Narrative* Problem Noted [...] of this encounter (statuses as of 06/07/2022) [facility] History of Past illness Narrative* Problem Noted [...] of this encounter (statuses as of 06/11/2022) [facility] of Past illness Narrative* Problem Noted [...] of this encounter (statuses as of 09/15/2022) [facility] of Past illness Narrative* Problem Noted [...] of this encounter (statuses as of 09/24/2022) [facility] of Past illness Narrative* Problem Noted [...] of this encounter (statuses as of 12/13/2022) [facility] History of Past illness Narrative* Problem Noted [...] of this encounter (statuses as of 12/27/2022) [facility] of Past illness Narrative* Problem Noted [...] of this encounter (statuses as of 03/16/2023) [facility] of Past illness Narrative* Problem Noted [...] of this encounter (statuses as of 04/05/2023) [facility] of Past illness Narrative* Problem Noted [...] of this encounter (statuses as of 05/06/2023) [facility] of Past illness Narrative* Problem Noted [...] of this encounter (statuses as of 05/15/2023) [facility] History of Past illness Narrative* Problem Noted [...] of this encounter (statuses as of 05/30/2023) [facility] of Past illness Narrative* Problem Noted [...] of this encounter (statuses as of 09/28/2021) [facility] of Past illness Narrative* Problem Noted [...] of this encounter (statuses as of 10/21/2021) [facility] of Past illness Narrative* Problem Noted [...] of this encounter (statuses as of 11/02/2021) [facility] Narrative* Problem Noted [...] of this encounter (statuses as of 11/10/2021) [facility] Narrative* Problem Noted [...] of this encounter (statuses as of 11/16/2021) [facility] Narrative* Problem Noted [...] of this encounter (statuses as of 11/23/2021) [facility] Narrative* Problem Noted [...] of this encounter (statuses as of 12/01/2021) [facility] Narrative* Problem Noted [...] of this encounter (statuses as of 12/08/2021) [facility] Narrative* Problem Noted [...] of this encounter (statuses as of 12/11/2021) [facility] note* Diagnosis Unsteady gait Abnormality of gait [facility]* Diagnosis Osteopenia, unspecified location documented in this encounter [facility] note* Diagnosis Chappell's esophagus without dysplasia- Primary Chappell's esophagus [facility]* Diagnosis Unsteady gait- Primary Abnormality of gait documented in this encounter [facility] note* Diagnosis Unsteady gait- Primary Abnormality of gait [facility] [place] [facility]* Diagnosis Unsteady gait- Primary Abnormality of gait documented [facility] this encounter [facility] [place] [facility]* Diagnosis Unsteady gait- Primary Abnormality of gait documented [facility] this encounter [facility] [place] [facility]* Diagnosis Unsteady gait- Primary Abnormality of gait documented [facility] this encounter [facility] [place] [facility]* Diagnosis Unsteady gait- Primary Abnormality of gait [facility] [place]* Diagnosis Primary hypertension- Primary Unspecified essential hypertension Need for influenza vaccination Need for prophylactic vaccination and inoculation against influenza Hyperlipidemia, unspecified hyperlipidemia type Need for vaccination Need for prophylactic vaccination and inoculation against unspecified single disease Arthritis of left knee Unspecified arthropathy, lower leg Anxiety about health documented in this encounter [facility] note* Diagnosis Anxiety about health [facility] [place] [facility] Diagnosis Visit for suture removal- Primary Encounter for removal of sutures Primary hypertension Unspecified essential hypertension [facility]* Diagnosis Hyponatremia- Primary Hyposmolality and/or hyponatremia documented [facility] this [facility]* Diagnosis Hyponatremia- Primary Hyposmolality and/or hyponatremia Leukocytosis, unspecified type Malaise Other malaise and fatigue Nausea Nausea alone documented in this encounter [facility] note* Diagnosis Urinary tract infection without hematuria, site unspecified- Primary Urinary frequency Hyponatremia Hyposmolality and/or hyponatremia Primary hypertension Unspecified essential hypertension Redness, eye Redness or discharge of eye documented in this encounter [facility] note* Diagnosis Primary hypertension- Primary Unspecified essential hypertension Gastroesophageal reflux disease without esophagitis Esophageal reflux Chappell's esophagus without dysplasia Chappell's esophagus Anxiety about health Hyperlipidemia, unspecified hyperlipidemia type documented in this encounter [facility] note* Diagnosis Chappell's esophagus without dysplasia- Primary Chappell's esophagus documented in this encounter [facility] note* Diagnosis Impaired fasting glucose- Primary Elevated liver function tests Other abnormal blood chemistry Chappell's esophagus without dysplasia- Primary Chappell's esophagus documented in this encounter [facility] note* Diagnosis Chappell's esophagus without dysplasia- Primary Chappell's esophagus Gastritis with intestinal metaplasia of stomach documented in this encounter [facility] note* Diagnosis Anxiety about health documented in this encounter [facility] note* Diagnosis Hyperlipidemia, unspecified hyperlipidemia type documented in this encounter [facility] note* Diagnosis Post-viral cough syndrome- Primary Cough documented in this encounter [facility] note* Diagnosis Chappell's esophagus without dysplasia- Primary Chappell's esophagus [facility] Outpatient Procedure (Routine) - Pending - Linked Order Update Specialty Diagnoses / Procedures Referred By Solo potts Referred To Contact [facility] Diagnoses Chappell's esophagus without dysplasia Procedures EGD DIAGNOSTIC EGD DIAGNOSTIC ESOPHAGOGASTRODUODENOSC OPY TRANSORAL DIAGNOSTIC ESOPHAGOGASTRODUODENOSC OPY TRANSORAL DIAGNOSTIC Mayra Rico APRN.CNP [address] [place], [place] [address] [address] [facility] [place] [address] [place] [id number] Referral ID Status Reason Start Date Expiration Date Visits Requested Visits Authorized [id number] Pending - Linked Order Update Auto-Generat ed Referral 11/02/2021 11/02/2022 1 1 [facility] Outpatient Procedure (Routine) - Closed Specialty Diagnoses / Procedures Referred By Solo potts Referred To Contact [facility] Diagnoses Chappell's esophagus without dysplasia Procedures EGD DIAGNOSTIC ESOPHAGOGASTRODUODENOSCOP Y TRANSORAL DIAGNOSTIC Santana Proctor PA-C [address] [place], [place] [address] [address] Gibson Hunter MD [address] [place] [address] Referral ID Status Reason Start Date Expiration Date V isits Requested Visits Authorized [id number] Closed Auto-Generate d Referral 12/14/2022 03/14/2023 1 1 [facility] for visit Narrative* Outpatient Procedure (Routine) - Closed Specialty Diagnoses / Procedures Referred By Solo potts Referred To Contact [facility] Diagnoses Chappell's esophagus without dysplasia Procedures EGD DIAGNOSTIC ESOPHAGOGASTRODUODENOSCOP Y TRANSORAL DIAGNOSTIC Santana Proctor PA-C [address] [place] [address] Gibson Hunter MD [address] [place] [address] Referral ID Status Reason Start Date Expiration Date V isits Requested Visits Authorized [id number] Closed Auto-Generate d Referral 12/14/2022 03/14/2023 1 1 [facility] Reason for Referral Specialty Diagnoses / Procedures Referred By Solo potts Referred To Contact [facility] Diagnoses Unsteady gait Procedures PT REHAB FOLLOW UP ORDER THERAPEUTIC EXERCISES RE, EA 15 MIN. Pt [facility] [address] [place] [address] [facility] [place] [address] [place] [address] Referral ID Status Reason Start Date Expiration Date Visits Requested Visits Authorized [id number] Pending Review PCP Requested Referral Auto-Generate d Referral 09/28/2021 12/27/2021 1 1 Advance Directives No Advanced Directives Records FoundDocuments on File Type Date Recorded Patient Siphon Operator Expl anation Advance Directive(s) 12/20/2008 9:10 PM Advance Directive(s) 10/11/2006 12:00 AM Advance Directive(s) 08/26/2006 12:00 AM Documents on File Type Date Recorded Patient Siphon Operator Expl anation Advance Directive(s) 12/20/2008 9:10 PM Advance Directive(s) 10/11/2006 12:00 AM Advance Directive(s) 08/26/2006 12:00 AM Documents on File Type Date Recorded Patient Siphon Operator Expl anation Advance Directive(s) 12/20/2008 9:10 PM Advance Directive(s) 10/11/2006 Advance Directive(s) 08/26/2006 Documents on File Type Date Recorded Patient Siphon Operator Expl anathui Advance Directive(s) 12/20/2008 9:10 PM Advance Directive(s) 10/11/2006 Advance Directive(s) 08/26/2006 Medications Administered Section Inactive Administered Medications - up to 3 most recent administrations Medication Order MAR Action Action Date Dose Rate Site benzocaine 20% 1 [place] (TOPEX) 1 [place], TOPICAL, DIRECTED, Starting on Tue12/14/22 at 1230, [...] or prosecute any alcohol or drug abuse patient.[facility] the event this information is protected by the Federal Confidentiality of Alcohol and Drug Abuse Patient Records regulations: The Federal rules restrict any use of the information to criminally investigate or prosecute any alcohol or drug abuse patient.[facility] the event this information is protected by the Federal Confidentiality of Alcohol and Drug Abuse Patient Records regulations: The Federal rules restrict any use of the information to criminally investigate or prosecute any alcohol or drug abuse patient.[facility] the event this information is protected by the Federal Confidentiality of Alcohol and Drug Abuse Patient Records regulations: The Federal rules restrict any use of the information to criminally investigate or prosecute any alcohol or drug abuse patient.[facility] the event this information is protected by the Federal Confidentiality of Alcohol and Drug Abuse Patient Records regulations: The Federal rules restrict any use of the information to criminally investigate or prosecute any alcohol or drug abuse patient.[facility] the event this information is protected by the Federal Confidentiality of Alcohol and Drug Abuse Patient Records regulations: The Federal rules restrict any use of the information to criminally investigate or prosecute any alcohol or drug abuse patient.[facility] the event this information is protected by the Federal Confidentiality of Alcohol and Drug Abuse Patient Records regulations: The Federal rules restrict any use of the information to criminally investigate or prosecute any alcohol or drug abuse patient.[facility] the event this information is protected by the Federal Confidentiality of Alcohol and Drug Abuse Patient Records regulations: The Federal rules restrict any use of the information to criminally investigate or prosecute any alcohol or drug abuse patient.[facility] the event this information is protected by the Federal Confidentiality of Alcohol and Drug Abuse Patient Records regulations: The Federal rules restrict any use of the information to criminally investigate or prosecute any alcohol or drug abuse patient.[facility] the event this information is protected by the Federal Confidentiality of Alcohol and Drug Abuse Patient Records regulations: The Federal rules restrict any use of the information to criminally investigate or prosecute any alcohol or drug abuse patient.[facility] the event this information is protected by the Federal Confidentiality of Alcohol and Drug Abuse Patient Records regulations: The Federal rules restrict any use of the information to criminally investigate or prosecute any alcohol or drug abuse patient.[facility] the event this information is protected by the Federal Confidentiality of Alcohol and Drug Abuse Patient Records regulations: The Federal rules restrict any use of the information to criminally investigate or prosecute any alcohol or drug abuse patient.[facility] the event this information is protected by the Federal Confidentiality of Alcohol and Drug Abuse Patient Records regulations: The Federal rules restrict any use of the information to criminally investigate or prosecute any alcohol or drug abuse patient.[facility] the event this information is protected by the Federal Confidentiality of Alcohol and Drug Abuse Patient Records regulations: The Federal rules restrict any use of the information to criminally investigate or prosecute any alcohol or drug abuse patient.[facility] the event this information is protected by the Federal Confidentiality of Alcohol and Drug Abuse Patient Records regulations: The Federal rules restrict any use of the information to criminally investigate or prosecute any alcohol or drug abuse patient.[facility] the event this information is protected by the Federal Confidentiality of Alcohol and Drug Abuse Patient Records regulations: The Federal rules restrict any use of the information to criminally investigate or prosecute any alcohol or drug abuse patient.[facility] the event this information is protected by the Federal Confidentiality of Alcohol and Drug Abuse Patient Records regulations: The Federal rules restrict any use of the information to criminally investigate or prosecute any alcohol or drug abuse patient.[facility] the event this information is protected by the Federal Confidentiality of Alcohol and Drug Abuse Patient Records regulations: The Federal rules restrict any use of the information to criminally investigate or prosecute any alcohol or drug abuse patient.[facility] the event this information is protected by the Federal Confidentiality of Alcohol and Drug Abuse Patient Records regulations: The Federal rules restrict any use of the information to criminally investigate or prosecute any alcohol or drug abuse patient.[facility] the event this information is protected by the Federal Confidentiality of Alcohol and Drug Abuse Patient Records regulations: The Federal rules restrict any use of the information to criminally investigate or prosecute any alcohol or drug abuse patient.[facility] the event this information is protected by the Federal Confidentiality of Alcohol and Drug Abuse Patient Records regulations: The Federal rules restrict any use of the information to criminally investigate or prosecute any alcohol or drug abuse patient.[facility] the event this information is protected by the Federal Confidentiality of Alcohol and Drug Abuse Patient Records regulations: The Federal rules restrict any use of the information to criminally investigate or prosecute any alcohol or drug abuse patient.[facility] the event this information is protected by the Federal Confidentiality of Alcohol and Drug Abuse Patient Records regulations: The Federal rules restrict any use of the information to criminally investigate or prosecute any alcohol or drug abuse patient.[facility] the event this information is protected by the Federal Confidentiality of Alcohol and Drug Abuse Patient Records regulations: The Federal rules restrict any use of the information to criminally investigate or prosecute any alcohol or drug abuse patient.[facility] the event this information is protected by the Federal Confidentiality of Alcohol and Drug Abuse Patient Records regulations: The Federal rules restrict any use of the information to criminally investigate or prosecute any alcohol or drug abuse patient.[facility] the event this information is protected by the Federal Confidentiality of Alcohol and Drug Abuse Patient Records regulations: The Federal rules restrict any use of the information to criminally investigate or prosecute any alcohol or drug abuse patient.[facility] the event this information is protected by the Federal Confidentiality of Alcohol and Drug Abuse Patient Records regulations: The Federal rules restrict any use of the information to criminally investigate or prosecute any alcohol or drug abuse patient.[facility] the event this information is protected by the Federal Confidentiality of Alcohol and Drug Abuse Patient Records regulations: The Federal rules restrict any use of the information to criminally investigate or prosecute any alcohol or drug abuse patient.[facility] Reason for Visit (unrecogniz ed section and content) Specialty Diagnoses / Procedures Referred By Contac t Referred To Contact [facility] Diagnoses Unsteady gait Procedures PT REHAB FOLLOW UP ORDER THERAPEUTIC EXERCISES RE, EA 15 MIN. Clement Lowery, PT [address] [place] [address] [facility] [place] [address] [place] [address] Referral ID Status Reason Start Date Expiration Date V isits Requested Visits Authorized [id number] Closed PCP Requested Referral Auto-Generated Referral 09/29/2021 12/30/2021 8 8 Reason Comments PT Eval Patient Education Specialty Diagnoses / Procedures Referred By Contac t Referred To Contact PHYSICAL THERAPY Diagnoses Unsteady gait Procedures CONSULT TO PHYSICAL THERAPY PHYSICAL THERAPY EVALUATION HIGH COMPLEX 45 MINS Sammy Perez MD [address] [place] [address] [facility] [address] [place] [address] Referral ID Status Reason Start Date Expiration Date V isits Requested Visits Authorized [id number] Closed Auto-Generate d Referral 09/16/2021 07/10/2022 1 1 Reason Comments egd 3 year repeat needs ordered d/t [facility]. Treats with protonix Reason Comments Physical Therapy Specialty Diagnoses / Procedures Referred By Contac t Referred To Contact [facility] Diagnoses Unsteady gait Procedures PT REHAB FOLLOW UP ORDER THERAPEUTIC EXERCISES RE, EA 15 MIN. 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 Date Comments F/U 6 months Immunizations 03/17/2022 Flu vaccination Reason Onset Date Comments Refill Request 04/09/2022 Reason Comments Fall Reason Comments ED Follow-up Removal of sutures o n left elbow Reason Comments urinary symptoms Reason Comments Follow Up Reason Comments Patient Update Reason Comments ER F/U UTI & hyponatremia - [facility] 06/03/22 Reason Comments F/U 6 months [...] Care Teams (unrecognized sec tion and content) 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 Relationship Specialty Start Date End Date Sammy Perez MD [address] [place] [id number] PCP - General 05/01/02 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 Relationship Specialty Start Date End Date Sammy Perez MD [address] [place] [id number] PCP - General 05/01/02 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 Relationship Specialty Start Date End Date Sammy Perez MD [address] [place] [id number] PCP - General 05/01/02 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 Relationship Specialty Start Date End Date Sammy Perez MD [address] [place] [id number] PCP - General 05/01/02 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 Relationship Specialty Start Date End Date Sammy Perez MD [address] [place] [address] PCP - General 05/01/02 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 Relationship Specialty Start Date End Date Sammy Perez MD [address] [facility] [place] [address] PCP - General 05/01/02 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 Relationship Specialty Start Date End Date Sammy Perez MD [address] [facility] [place] [address] PCP - General 05/01/02 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 Relationship Specialty Start Date End Date Sammy Perze MD [address] [facility] [place] [address] PCP - General 05/01/02 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 Relationship Specialty Start Date End Date Sammy Perez MD [address] [facility] [place] [address] PCP - General 05/01/02 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 Relationship Specialty Start Date End Date Sammy Perez MD [address] [facility] [place] [address] PCP - General 05/01/02 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 Relationship Specialty Start Date End Date Sammy Perez MD [address] [facility] [place] [address] PCP - General 05/01/02 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 Relationship Specialty Start Date End Date Sammy Perez MD [address] [facility] [place] [address] PCP - General 05/01/02 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 Relationship Specialty Start Date End Date Sammy Perez MD [address] [facility] [place] [address] PCP - General 05/01/02 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 Relationship Specialty Start Date End Date Sammy Perez MD [address] [place] [address] PCP - General 05/01/02 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 Relationship Specialty Start Date End Date Sammy Perez MD [address] [place] [address] PCP - General 05/01/02 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 Relationship Specialty Start Date End Date Sammy Perez MD [address] [place] [address] PCP - General 05/01/02 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 [facility] [employer] [facility]. provides no warranty or guarantee of the accuracy or completeness of information in this document.
== END | disposition home or self-care (01) ==
LOC: LABSPEC 15:31
PROVIDERS: PCP Internal Medicine; Referring Provider Orthopaedic Surgery; Visit Provider Orthopaedic Surgery
DX: M17.12 Unilateral primary osteoarthritis, left knee (principal)
CPT/HCPCS: 88305; 88311

== ENCOUNTER 2024-02-12 20:37 | Emergency (ER) | payer MEDICARE, SELFPAY ==
[2024-02-12 20:38] VITALS: BP 148/67; PULSE 92; RESP 16; TEMP 36.1; O2SAT 96; BMI 24.5
--- NOTE | 2024-02-12 21:24 | ED.VIS.GI ---
HPI HPI - GI History of Present Illness Chief Complaint: Diarrhea Detail of Chief Complaint: Diarrhea Informant: patient Narrative Narrative: Patient presents to the emergency department with complaint of diarrhea that started yesterday morning. Patient states that the night before she had gone out to dinner with her and she ate fish and she is not sure if that is what triggered it but the next morning she started with watery stools and she is been going about 10 times a day. Today she took Imodium at least 3 times and has had no relief. She describes some mild abdominal cramping. She describes a dry mouth. No other sick contacts. She has not been on antibiotics recently. [facility] Medical History (Updated 02/12/24 @ 23:[address] Elicia Lozoya, DO) Osteoporosis Former smoker Hypertension Essential hypertension Dehydration Depression Anxiety History of gastroesophageal reflux (GERD) Arthritis Hyperlipidemia Vitamin D deficiency Obsessive compulsive disorder Frequent headaches Insomnia Chronic back pain Raynaud phenomenon Barretts esophagus GERD (gastroesophageal reflux disease) IBS (irritable bowel syndrome) Osteopenia Lichen planus Home Medications ?Medication ?Instructions ?Recorded ?Last Taken ?Type calcium carbonate 600 mg-vitamin 1,200 mg PO DAILY ##0 09/13/17 Unknown History D3 20 mcg (800 unit) chewable tablet fluoxetine 40 mg capsule 40 mg PO QDAY 30 days #30 caps 09/13/17 Unknown History multivitamin 1 tab PO QAM 09/13/17 Unknown History simvastatin 40 mg tablet 40 mg PO QPM 09/13/17 Unknown History lorazepam 1 mg tablet 1 tab PO QHS 06/14/19 Unknown History pantoprazole 40 mg tablet,delayed 40 mg PO BID 01/28/21 Unknown History release (Protonix) ondansetron 4 mg disintegrating 4 mg PO Q8H PRN nausea and 06/03/22 Unknown Rx tablet vomiting #10 tabs Saccharomyces boulardii 250 mg 500 mg PO DAILY 09/21/22 Unknown History capsule (Florastor) losartan 100 mg tablet 100 mg PO DAILY #90 tabs 04/01/23 Unknown Rx amlodipine 5 mg tablet 5 mg PO DAILY #90 tabs 06/20/23 Unknown Rx metoprolol succinate 50 mg 50 mg PO DAILY #90 tabs 10/03/23 Unknown Rx tablet,extended release 24 hr (Toprol XL) diphenoxylate-atropine 2.5 1 tab PO Q6H PRN diarrhea #14 tabs 02/12/24 Unknown Rx mg-0.025 mg tablet (Lomotil) ondansetron 4 mg disintegrating 4 mg PO Q8H PRN PRN Nausea #10 tabs 02/12/24 Unknown Rx tablet Allergy/AdvReac Type Severity Reaction Status Date / Time hydrochlorothiazide AdvReac Intermediate Low sodium Verified 02/12/24 20:38 Family History (Reviewed 06/20/23 @ 13:14 by Maryam Pennington 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, 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-C) Father Heart disease CAD (coronary artery disease) >55 Surgical History History of total abdominal hysterectomy History of tonsillectomy History of bladder surgery History of cataract surgery Status post epidural steroid injection History of arthroscopy of left knee (~04/2017) Social History (Reviewed 06/20/23 @ 13:14 by Maryam Pennington 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, 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) household members: spouse Smoking Status: Former smoker quit date: 09/22/90 alcohol intake: current alcohol intake frequency: a few times a week Alcohol type: wine substance use type: does not use caffeine: Yes what type of physical activity do you participate in: walking frequency: 1-2 times per week seatbelt use: always do you feel safe at home: Yes additional social history: - Richie Patient and both retired ROS ROS ED Review of Systems ROS Unobtainable: other Constitutional Constitutional ED: Reports lethargy; Denies chills, fever(s), sweats or weight loss Eyes Eyes: Denies blurry vision, change in vision or diplopia ENT ENT ED: Denies rhinorrhea or sore throat Cardiovascular Cardiovascular: Denies chest pain, orthopnea or racing heartbeat Respiratory/Chest Respiratory/Chest: Denies cough, dyspnea, dyspnea on exertion, orthopnea or sputum Gastrointestinal Gastrointestinal: Reports diarrhea; Denies abdominal pain, nausea or vomiting Genitourinary Genitourinary ED: Denies dysuria, hematuria or urinary frequency Musculoskeletal Musculoskeletal: Denies arthralgias, back pain, myalgias or neck pain Integumentary Denies abscess, Abrasions or rash Neurologic Neurologic: Denies headache(s) or weakness Psychiatric Psychiatric: Denies anxiety, depression or suicidal thoughts Endocrine Endocrinology: Denies polydipsia, polyphagia or polyuria Hematologic/Lymphatic Hematologic/Lymphatic: Denies easy bleeding, easy bruising or lymphadenopathy Allergic/Immunologic Allergic/Immunologic ED: Denies mouth swelling, tongue swelling or urticaria EXAM Physical Exam Const Vital Signs: 02/12/24 20:38 Temperature 96.9 F L Temperature Source Temporal Pulse Rate 92 Respiratory Rate 16 Blood Pressure 148/67 H Blood Pressure Mean 94 Pulse Ox 96 Oxygen Delivery Method Room Air Positive well nourished and well developed General Appearance ED: well developed and NAD HEENT Reports TM's clear and moist mucous membranes normocephalic and atraumatic; Negative for trauma or tenderness Tympanic Membrane ED: Yes TM's clear Eyes PERRL and EOMs intact bilaterally General Eye ED: Negative for pale conjunctiva or scleral icterus Neck no lymphadenopathy, supple and no JVD General: Negative for tenderness Chest Wall inspection of chest normal and palpation of chest normal Chest: Negative for tenderness Resp normal respiratory effort and clear to auscultation bilaterally Effort and Inspection: Negative for respiratory distress or pain with movement Auscultation: Negative for rhonchi, wheezes or diminished lung sounds Cardio regular rate, regular rhythm, S1 normal heart sound, S2 normal heart sound and no murmurs Peripheral Pulses: pulses 2+ throughout GI normal to inspection, nondistended, normoactive bowel sounds, soft to palpation, non-tender, non-distended and no masses Back/Spine no CVA tenderness and no thoracic nor lumbar tenderness Extremity normal to inspection General Extremety ED: Negative for edema General Extremity: Negative for edema Neuro oriented x3, CN's II-XII intact bilaterally, no sensory deficits noted and gait normal Sensorium / Orientation: awake, alert, oriented to person, oriented to place and oriented to time Motor Exam: strength 5/5 throughout and strength abnormal Psych mental status grossly normal Skin no rashes or lesions noted and no wounds MDM MDM MDM Narrative Medical decision making narrative: Patient presents with diarrhea x 2 days. She has had some mild nausea but no vomiting. Denies any abdominal pain. Clinically looks well. IV line established. CBC with differential obtained showing a 12.1 with hemoglobin 11.6 and platelet count of 188. Chemistries unremarkable. Glucose 137. I ordered stool for enteric pathogens however patient unable to produce sample without urinating and it. She was given a liter of saline fluid bolus. She was given a dose of Zofran and Lomotil. This point will write her a prescription to bring in a stool sample for enteric pathogens and C. difficile. Recommended she return if persistent diarrhea, lightheadedness, abdominal pain, or condition should worsen anyway. Clinically suspect viral gastroenteritis. Lab Data Attestation: I reviewed the patient's lab results. Labs: Laboratory Results - last 24 hr 02/12/24 21:21 WBC 12.1 H RBC 3.97 L Hgb 11.6 L Hct 36.2 L MCV 91.2 MCH 29.2 MCHC 32.0 RDW Std Deviation 44.4 H RDW Coeff of [place] 13.3 Plt Count 188 MPV 11.0 Immature Gran % (Auto) 0.600 Neut % (Auto) 79.8 H Lymph % (Auto) 9.4 L Barren % (Auto) 9.1 Eos % (Auto) 0.8 Baso % (Auto) 0.3 Absolute Neuts (auto) 9.6 H Absolute Lymphs (auto) 1.14 Nucleated RBC % 0 Sodium 136 Potassium 3.5 Chloride 105 Carbon Dioxide 25.0 Anion Gap 6 BUN 12 Creatinine 0.73 Estim Creat Clear Calc 48.11 Est GFR (MDRD) Af Amer 99 Est GFR (MDRD) Non-Af 82 BUN/Creatinine Ratio 16.5 Glucose 137 H Calcium 8.8 Discharge Plan Triage Chief Complaint: Diarrhea ED Provider: Elicia Lozoya Dx/Rx/DC Orders Clinical Impression: Viral gastroenteritis Instructions: ED Diarrhea, Viral (Adult) Prescriptions: New ondansetron 4 mg tablet,disintegrating 4 mg PO Q8H PRN PRN (Reason: Nausea) Qty: 10 0RF diphenoxylate-atropine [Lomotil] 2.5-0.025 mg tablet 1 tab PO Q6H PRN (Reason: diarrhea) Qty: 14 0RF No Action simvastatin 40 mg tablet 40 mg PO QPM fluoxetine 40 mg capsule 40 mg PO QDAY 30 Days Qty: 30 Patient Comments: calcium carbonate-vitamin D3 600 MG tablet,chewable 1,200 mg PO DAILY Qty: 0 multivitamin tablet 1 tab PO QAM pantoprazole [Protonix] 40 mg tablet,delayed release (DR/EC) 40 mg PO BID Saccharomyces boulardii [Florastor] 250 mg capsule 500 mg PO DAILY amlodipine 5 mg tablet 5 mg PO DAILY Qty: 90 3RF lorazepam 1 MG tablet 1 tab PO QHS ondansetron 4 mg tablet,disintegrating 4 mg PO Q8H PRN (Reason: nausea and vomiting) Qty: 10 0RF losartan 100 mg tablet 100 mg PO DAILY Qty: 90 3RF metoprolol succinate [Toprol XL] 50 mg tablet extended release 24 hr 50 mg PO DAILY Qty: 90 3RF Primary Care Provider: Sammy Aleman Referrals: Sammy Aleman MD [Primary Care Provider] - 3-5 Days Print Language: [place] Disposition Disposition: Home, Self Care
[2024-02-12] MEDS: 0.9% Normal Saline (1000mL) 1,000 ML 999 ML IV (21:27)
[2024-02-12 21:51] LABS: Absolute Lymphocyte Count 1.14 X10^3/uL (0.83-4.51); Absolute Neutrophil Count 9.6 X10^3/uL (2.0-7.7); Basophil# 0.04 X10^3/uL; Basophil% 0.3 % (0-1); Eosinophils% 0.8 % (0-5); Hematocrit 36.2 % (37-47); Hemoglobin 11.6 g/dL (12.0-15.0); Lymphocyte # 1.14 X10^3/ul (0.83-4.51); Lymphocyte % 9.4 % (19-41); Mean Corpuscular Hgb 29.2 pg (27.0-32.0); Mean Corpuscular Volume 91.2 fL (81-99); Monocyte% 9.1 % (0-10); NRBC Flagged by Analyzer 0 % (0-5); Neutrophil # 9.62 X10^3/uL (2.7-7.7); Neutrophil % 79.8 % (47-70); Platelet Count 188 K/mm3 (150-450); RBC Distribution Width CV 13.3 % (11.6-14.6); RBC Distribution Width SD 44.4 fl (35.1-43.9); Red Blood Count 3.97 M/mm3 (4.2-5.4); White Blood Count 12.1 K/mm3 (4.4-11.0)
[2024-02-12 21:59] LABS: Anion Gap 6 (5-15); BUN 12 mg/dL (7-18); BUN/Creat Ratio 16.5 RATIO (10-20); Calcium,Total 8.8 mg/dL (8.5-10.1); Chloride 105 mmol/L (98-107); Creatinine, Serum 0.73 mg/dL (0.55-1.02); EST Glomerular Filtration Rate 82 mL/min (>60); Est Glom Filt Rate - Afr Amer 99 mL/min (>60); Estimated Creatinine Clearance 48.11 ml/min; Glucose 137 mg/dL (74-106); Potassium 3.5 mmol/L (3.5-5.1); Sodium Level 136 mmol/L (136-145)
[2024-02-12] MEDS: Ondansetron 4 MG/2 ML Vial IV (23:11)
[2024-02-12 23:13] VITALS: BP 140/72; PULSE 64; RESP 16; TEMP 36.7; O2SAT 97
[2024-02-12] MEDS: Diphenoxylate/Atrop 1 Tablet 2 TABLET PO (23:18)
== END 2024-02-12 23:48 | disposition home or self-care (01) ==
PROVIDERS: Emergency Provider Emergency Medicine; PCP Internal Medicine; Visit Provider Emergency Medicine
DX: A08.4 Viral intestinal infection, unspecified (principal); I10 Essential (primary) hypertension; K21.9 Gastro-esophageal reflux disease without esophagitis; Z79.899 Other long term (current) drug therapy; Z87.891 Personal history of nicotine dependence
CPT/HCPCS: 80048; 85025; 96361; 96374; 99283; A4216; J2405

== ENCOUNTER → 2024-07-05 | Outpatient (CLI) | payer MEDICARE, SELFPAY ==
--- NOTE | 2024-07-05 07:53 | CT_ITS ---
CT RIGHT LOWER EXTREMITY WITH 3-D IMAGING CLINICAL INDICATION: KNEE PAIN-RT JOSE KNEE TECHNIQUE: Axial CT images of the RIGHT lower extremity was performed without IV contrast material. Coronal and sagittal reformats were provided. The protocol utilizes one or more of the following dose reduction techniques: automated exposure control, adjustment of mA and/or kV according to patient size,and/or use of iterative reconstruction technique. RADIATION DOSAGE (If Supplied By Facility): CTDIvol = ( 17.91 ) mGy, DLP = ( 1193.36 ) mGycm COMPARISON: FINDINGS: Bones: Osseous structures are normal without evidence of fracture or dislocation. No lytic or blastic osseous masses. Severe joint space narrowing lateral compartment of the knee joint consistent with severe arthrosis. Moderate knee joint effusion. Soft Tissues: The deep soft tissue structures are unremarkable. The superficial soft tissues are unremarkable without evidence of edema, hematoma, or foreign body. CT/Extremity Lower without Contra IMPRESSION: Severe knee arthrosis with a joint effusion. Electronically Signed: Gibson Arguello MD at 9:55 EST ,
== END | disposition home or self-care (01) ==
LOC: CT 07:52
PROVIDERS: PCP Internal Medicine; Referring Provider Orthopaedic Surgery; Visit Provider Orthopaedic Surgery
DX: M25.561 Pain in right knee (principal); G89.29 Other chronic pain
CPT/HCPCS: 73700

== ENCOUNTER → 2024-07-23 | Outpatient (CLI) | payer MEDICARE, SELFPAY ==
--- NOTE | 2024-07-23 12:23 | EKG12_ITS ---
Test Reason : PRE OP Blood Pressure : */* mmHG Vent. Rate : 63 BPM Atrial Rate : 63 BPM P-R Int : 130 ms QRS Dur : 76 ms QT Int : 434 ms P-R-T Axes : 56 22 62 degrees QTcB Int : 444 ms Normal sinus rhythm Normal ECG Confirmed by MAINE GANN, WALLY ([id number]), photo editor ADELAIDE ERICKSON ([id number]) on 07/23/2024 2:24:32 PM Referred By: Tashi Dominguez Confirmed By: WALLY GROVE MD
[2024-07-23 13:01] LABS: Absolute Lymphocyte Count 1.42 X10^3/uL (0.83-4.51); Absolute Neutrophil Count 6.5 X10^3/uL (2.0-7.7); Basophil# 0.06 X10^3/uL; Basophil% 0.7 % (0-1); Eosinophil# 0.16 X10^3/uL; Eosinophils% 1.7 % (0-5); Hematocrit 37.8 % (37-47); Hemoglobin 12.2 g/dL (12.0-15.0); Lymphocyte # 1.42 X10^3/ul (0.83-4.51); Lymphocyte % 15.5 % (19-41); Mean Corp Hgb Conc 32.3 g/dL (32-36); Mean Corpuscular Hgb 30.2 pg (27.0-32.0); Mean Corpuscular Volume 93.6 fL (81-99); Mean Platelet Vol. 10.7 fl (6.2-12.0); Monocyte# 0.94 X10^3/uL; Monocyte% 10.3 % (0-10); NRBC Flagged by Analyzer 0 % (0-5); Neutrophil # 6.53 X10^3/uL (2.7-7.7); Neutrophil % 71.3 % (47-70); Platelet Count 214 K/mm3 (150-450); RBC Distribution Width CV 13.2 % (11.6-14.6); RBC Distribution Width SD 45.8 fl (35.1-43.9); Red Blood Count 4.04 M/mm3 (4.2-5.4); White Blood Count 9.2 K/mm3 (4.4-11.0)
[2024-07-23 13:23] LABS: Albumin, Serum 3.7 g/dL (3.2-5.0); Anion Gap 4 (5-15); BUN 16 mg/dL (7-18); BUN/Creat Ratio 20.4 RATIO (10-20); Calcium,Total 9.2 mg/dL (8.5-10.1); Chloride 105 mmol/L (98-107); Creatinine, Serum 0.79 mg/dL (0.55-1.02); EST Glomerular Filtration Rate 75 mL/min (>60); Est Glom Filt Rate - Afr Amer 90 mL/min (>60); Glucose 100 mg/dL (74-106); Potassium 3.9 mmol/L (3.5-5.1); Sodium Level 137 mmol/L (136-145)
== END | disposition home or self-care (01) ==
PROVIDERS: PCP Internal Medicine; Referring Provider Orthopaedic Surgery; Visit Provider Orthopaedic Surgery
DX: Z01.818 Encounter for other preprocedural examination (principal); M17.11 Unilateral primary osteoarthritis, right knee; Z01.810 Encounter for preprocedural cardiovascular examination

== ENCOUNTER → 2024-08-20 | Outpatient (CLI) | payer MEDICARE, SELFPAY ==
--- NOTE | 2024-08-20 07:30 | KNEE_PTH ---
PATIENT: IDRIS ALMEIDA [facility] U#:[id number] AGE/SX: 79/F ROOM: RE08/20/[address]: Dr. Tashi Dominguez MD : 1945 BED: DIS: 08/20/2024 SPEC #: [id number] RECD: 08/20/24 15:01 STATUS: JOCELYN REQ #: [id number] NEGRITA: 08/20/24 07:[address]: Tashi Dominguez DEPT: SURGICAL PATHOLOGY RECD BY: Tona Verdin ENTERED: 08/21/24 07:42 SP TYPE: TOTAL KNEE OTHR DR: Dr. Sammy Aleman MD Tissues: Knee, NOS Procedures: Decalcification bone/plaque Surgery Specimen Level IV HEADER OPERATION: Right total knee arthroplasty PRE-OP DIAGNOSIS: Primary osteoarthritis of right knee TISSUE SUBMITTED: Right knee bone and tissue MICROSCOPIC DIAGNOSIS Bone and soft tissue, right knee, total knee replacement/resection: Pieces of bone with degenerative osteoarthritic changes. Fibroadipose tissue, fibroconnective tissue and reactive synovial tissue. : 08/24/2024 MICROSCOPIC DESCRIPTION Slides are reviewed. GROSS DESCRIPTION Received is one container designated bone and soft tissue right knee. The specimen consists of multiple fragments of bustamante-yellow bone measuring in aggregate 10 x 8 x 3 cm. Also in the specimen container are multiple fragments of yellow-white soft tissue measuring in aggregate 7.5 x 4.5 x 2 cm. A number of bony fragments contain articular surfaces consistent with tibial plateau and femoral condyle and displaying prominent osteophyte formation, eburnation and bone erosion. Primary Special Educator sections are submitted in two cassettes as follows: 1 - soft tissue, 2 - bone after decalcification. / EVERT. 08/21/2024 TC:[address] [facility]: [id number]
== END | disposition home or self-care (01) ==
LOC: LABSPEC 15:07
PROVIDERS: PCP Internal Medicine; Referring Provider Orthopaedic Surgery; Visit Provider Orthopaedic Surgery
DX: M17.11 Unilateral primary osteoarthritis, right knee (principal)
CPT/HCPCS: 88305; 88311